=== PATIENT | male | born 1975 | race Caucasian/White ===

== ENCOUNTER 2020-09-30 16:42 | Emergency (ER) | payer SELFPAY ==
[2020-09-30 17:02] VITALS: BP 132/91; PULSE 92; RESP 14; TEMP 36.3; O2SAT 95; BMI 17.4
--- NOTE | 2020-09-30 17:19 | W.ED.DENTAL ---
HPI - Dental/Oral General: Chief complaint: Dental/Oral Stated complaint: L SIDE TOOTH PAIN/POSS INFECTION Time Seen by Provider: 09/30/20 17:19 Source: patient Mode of arrival: ambulatory Limitations: no limitations History of Present Illness: HPI Narrative: Patient is a 49-year-old male who presents to ED today with complaint of dental pain and facial swelling. Patient tells me approximately 6 days ago one of his lower incisors broke. He states it was not really bothering him until yesterday when it began hurting. He states he woke up today and noticed facial swelling. He is not having any difficulty eating or drinking. No fevers. MD Complaint: tooth pain Onset (ago): day(s) Duration: constant Severity: moderate Relieving factors: nothing Exacerbating factors: nothing Context: history of dental caries and trauma (mechanism) Associated symptoms: Reports no associated symptoms; Denies fever(s) or odynophagia Review of Systems Const: Denies: fever(s), chills, body aches or fatigue Eyes: Denies: change in vision or blurry vision ENMT: Reports: dental pain; Denies: throat pain, enlarged tonsils, odynophagia, bleeding gums or nasal congestion Card: Denies: chest pain Resp: Denies: dyspnea GI: Denies: nausea or vomiting Musc: Denies: neck pain Skin/Breast: Denies: rash Neuro: Denies: headache(s) Physical Exam Const: COMMON NORMALS: no acute distress, average body habitus, patient oriented x3, no limitations, healthy appearing, alert and well nourished HENMT: COMMON NORMALS: normocephalic, atraumatic, moist oral mucous membranes and oropharynx normal HEAD & SCALP: normal to inspection, normocephalic and atraumatic FACE & SINUS: sinuses nontender and other (mild swelling noted to chin) TEETH & GINGIVA: Yes poor dentition TEETH & GINGIVA IMAGES: 1. broken tooth; erosion noted into gingiva; no obvious palpable abscess; overall very poor dentition; diffuse gingivitis THROAT: posterior oropharynx normal and other (floor of mouth is soft and non-elevated ) Neck/C-Spine: COMMON NORMALS: full ROM and no lymphadenopathy Lymph: LYMPHATIC: no lymphadenopathy noted Neuro: COMMON NORMALS: patient oriented x3 SENSORIUM/ORIENTATION: Yes alert Skin: COMMON NORMALS: no rashes or lesions noted GENERAL SKIN EXAM: no rashes or lesions noted Course Vital Signs: Vital signs: Vital Signs Temperature 97.4 F L 09/30/20 17:02 Pulse Rate 92 09/30/20 17:02 Respiratory Rate 14 09/30/20 17:02 Blood Pressure 132/91 09/30/20 17:02 Pulse Oximetry 95 09/30/20 17:02 MDM - Dental/Oral MDM Narrative: Medical decision making narrative: Patient was provided with dental resources. There is no drainable abscess at this time. Patient will be placed on abx and recommends he follows up with a dentist as soon as possible. Return to ED precautions discussed. Discharge Plan Discharge Patient Disposition: Home Clinical Impression: Dental caries, Dental abscess Condition: Stable Prescriptions: New penicillin V potassium 500 mg tablet 500 mg PO Q8H 7 Days Qty: 21 RF: 0 Discharge Orders: Discharge ED (Routine); Ordered 09/30/20 Ordered By: Genet Parson Patient Instructions: Dental Abscess (ED), Dental Caries (ED) Coding Level of Care Code ED Marketing Project Manager for [employer] Fwd Exam Problem Focused
== END 2020-09-30 17:32 | disposition home or self-care (01) ==
PROVIDERS: Emergency Provider Physician Assistant
DX: K02.9 Dental caries, unspecified (principal); K04.7 Periapical abscess without sinus
CPT/HCPCS: 12345; 99281

== ENCOUNTER 2020-10-04 10:03 | Emergency (ER) | payer SELFPAY ==
[2020-10-04 10:09] VITALS: BP 134/79; PULSE 76; RESP 16; TEMP 36.5; O2SAT 99; BMI 17.4
--- NOTE | 2020-10-04 10:22 | XR_ITS ---
WS: [id number] Mandible series, 4 views, 10/04/2020 Clinical Data: fall, pain, left lower front Comparison: None. Findings: The mandible is intact with no fractures. The condyles are normal. The angle and body of the mandible are not remarkable. The maxilla and visualized sinuses are normal. The patient has poor dentition. T here is a shunt catheter overlying the left neck. There are metal fragments lateral to the left later al orbit. XR/XR mandible min 4V [id number] Impression: Negative mandible series.
--- NOTE | 2020-10-04 10:23 | W.ED.GENADLT ---
HPI - General Adult General: Chief complaint: Dental/Oral Stated complaint: jaw pain, swelling Time Seen by Provider: 10/04/20 10:16 History of Present Illness: HPI narrative: Patient complains about swelling to his left mandible since he had a fall after seizure other day. Said his tooth broke off and has been sore there also was treated with antibiotics and is on those presently said he feels he might of broke his jaw. MD complaint: Jaw pain Onset (ago): day(s) Location: mouth Radiation: non-radiation Severity: moderate Severity scale (1-10): 4 Quality: aching Pain Consistency: constant Relieving factors: none Exacerbating factors: movement Associated symptoms: Reports palpitations (History of palpitations none presently) and other (Swelling) Treatments prior to arrival: NSAID Review of Systems Narrative: Patient believes he might have fractured his jaw when he fell the other day after having a seizure. Said his swelling to improve with antibiotics it hurts for him to talk and he has swelling in the lower part of his jaw underneath the tooth that he said broke off after he fell. ENMT: Reports: other (Broken tooth and jaw pain) Card: Reports: palpitations (History of palpitations none presently) Psych: Denies: anxiety or depression Physical Exam Const: COMMON NORMALS: no acute distress and patient oriented x3 HENMT: TEETH & GINGIVA: Yes other (Between his #23 and his #21 tooth he said it broke off there hard to see if) OTHER: In continuation of note is hard to determine if there was actually tooth there but there is deterioration decay of that area and also swelling to the gum. Has multiple dental caries. Does have some swelling to the front part chin area and does have a lymphadenopathy underneath that area. Pain with palpation. Neck/C-Spine: COMMON NORMALS: full ROM CERVICAL SPINE: Yes cervical ROM normal Neuro: COMMON NORMALS: patient oriented x3, moves all extremities, no focal motor deficits and no sensory deficits noted Course Vital Signs: Vital signs: Vital Signs Temperature 97.7 F 10/04/20 10:09 Pulse Rate 76 10/04/20 10:09 Respiratory Rate 16 10/04/20 10:09 Blood Pressure 134/79 10/04/20 10:09 Pulse Oximetry 99 10/04/20 10:09 Discharge Plan Discharge Prescriptions: No Action penicillin V potassium 500 mg tablet 500 mg PO Q8H 7 Days Qty: 21 RF: 0 Coding Level of Care Code ED Nutrition Services Aide for Fei Ku
[2020-10-04] MEDS: clindamycin 150 mg Capsule 300 MG PO (10:57)
[2020-10-04 11:01] VITALS: RESP 18
== END 2020-10-04 11:02 | disposition home or self-care (01) ==
PROVIDERS: Emergency Provider Nurse Practitioner Family
DX: R68.84 Jaw pain (principal)
CPT/HCPCS: 70110; 99283

== ENCOUNTER 2020-10-04 14:24 | Emergency (ER) | payer SELFPAY ==
[2020-10-04 14:40] VITALS: BP 122/84; PULSE 113; RESP 16; TEMP 36.9; O2SAT 96; BMI 17.4
--- NOTE | 2020-10-04 15:24 | W.ED.SKABFB ---
HPI - Skin/Abscess/Foreign Bdy General: Chief complaint: Skin/Abscess/Foreign Body Stated complaint: ABSCESS ON FACE Time Seen by Provider: 10/04/20 15:14 History of Present Illness: HPI narrative: Area swelling underneath chin is starting to drain pus this afternoon. complaint: abscess/boil Onset (ago): hour(s) Location: face Severity: mild Severity scale (1-10): 1 Quality: aching Associated symptoms: Reports no associated symptoms; Deny chills or fever(s) Review of Systems Const: Denies: fever(s) or chills Skin/Breast: Reports: skin tenderness and skin swelling (Area under chin draining some pus now) Psych: Denies: anxiety Physical Exam Const: COMMON NORMALS: no acute distress Psych: COMMON NORMALS: mental status grossly normal Skin: OTHER: Patient swelling in her chin is draining some yellowish thick drainage now patient able to squeeze and get some out. Did not appear to be enough to open up and and make incision at this time. No other swelling or problems noted. Course Vital Signs: Vital signs: Vital Signs Temperature 98.4 F 10/04/20 14:40 Pulse Rate 113 H 10/04/20 14:40 Respiratory Rate 16 10/04/20 14:40 Blood Pressure 122/84 10/04/20 14:40 Pulse Oximetry 96 10/04/20 14:40 Discharge Plan Discharge Patient Disposition: Home Clinical Impression: Abscess of skin or subcutaneous tissue Qualifiers: Site of cutaneous abscess: head Qualified Code(s): L02.811 - Cutaneous abscess of head [any part, except face] Condition: Stable Prescriptions: No Action penicillin V potassium 500 mg tablet 500 mg PO Q8H 7 Days Qty: 21 RF: 0 clindamycin HCl 300 mg capsule 300 mg PO Q8H 7 Days Qty: 21 RF: 0 Celebrex 100 mg capsule 100 mg PO BID Qty: 20 RF: 0 Discharge Orders: Discharge ED (Routine); Ordered 10/04/20 Ordered By: Paul Hsieh Discharge Diet: Usual diet Discharge Activity: Resume usual activity Patient Instructions: Abscess (ED) Activity Restrictions/Additional Instructions: Continue on present antibiotics. Apply moist heat every hour or 2 to help. Continue to drain. If increased swelling pain or change for the worse happens please return here or the urgent care. Coding Level of Care Code ED Automatic Drilling Machine Operator for Fei Ku Exam Expanded Problem Focused
--- NOTE | 2020-10-04 16:36 | PC.NURSE ---
Read and agree with assessment
== END 2020-10-04 16:48 | disposition home or self-care (01) ==
PROVIDERS: Emergency Provider Nurse Practitioner Family
DX: L02.811 Cutaneous abscess of head [any part, except face] (principal)
CPT/HCPCS: 99281

== ENCOUNTER 2020-10-25 18:24 | Emergency (ER) | payer SELFPAY ==
[2020-10-25] VITALS (7 sets, daily range): BP systolic 106–131; BP diastolic 60–83; PULSE 64–91; RESP 9–19; TEMP 36.6; O2SAT 97–100; BMI 17.4
--- NOTE | 2020-10-25 18:32 | XRR_ITS ---
PROCEDURE INFORMATION: Exam: XR Chest Exam date and time: 10/25/2020 6:40 PM Age: 45 years old Clinical indication: Chest pain; Additional info: Cp TECHNIQUE: Imaging protocol: XR of the chest Views: 1 view. Total images: 1 COMPARISON: No relevant prior studies available. FINDINGS: Tubes, catheters and devices: Left internal jugular central venous catheter tip atrial caval junction. Lungs: Hyperinflation and query a history of reactive airway disease/COPD/chronic bronchitis/asthma. No visible active interstitial or alveolar airspace disease. Costophrenic angles are not visualized. Pleural spaces: No visible pneumothorax. No grossly visible pleural effusion. Heart/Mediastinum: Unremarkable. No cardiomegaly. Bones/joints: Mild scoliotic curvature. Other findings: Microcardia. XR/XR chest 1V portable [id number] IMPRESSION: Hyperinflation.
--- NOTE | 2020-10-25 18:32 | ECG_ITS ---
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
--- NOTE | 2020-10-25 18:35 | CTR_ITS ---
PROCEDURE INFORMATION: Exam: CT Angiography Chest With Contrast Exam date and time: 10/25/2020 6:41 PM Age: 45 years old Clinical indication: Abdominal pain; Generalized; Patient HX: Chest pain and SOB x 1 day; Additional info: Cp HX of aortic aneurysm TECHNIQUE: Imaging protocol: Computed tomographic angiography of the chest with contrast. 3D rendering (Not supervised by radiologist): MIP and/or 3D reconstructed images were created and reviewed. COMPARISON: No relevant prior studies available. FINDINGS: Pulmonary arteries: Normal. No pulmonary emboli. Aorta: The aorta is normal. There is no thoracic aortic aneurysm or dissection. Lungs: Lungs are clear. Pleural spaces: Unremarkable. No pneumothorax. No pleural effusion. Heart: Unremarkable. No cardiomegaly. No pericardial effusion. Lymph nodes: There is no evidence of lymphadenopathy. Bones/joints: There is mild scoliosis of the thoracic spine concave to the right. Soft tissues: Unremarkable. IMPRESSION: No acute findings in the chest. PROCEDURE INFORMATION: Exam: CT Angiography Abdomen and Pelvis With Contrast Exam date and time: 10/25/2020 6:41 PM Age: 45 years old Clinical indication: Abdominal pain; Generalized; Patient HX: Chest pain and SOB x 1 day; Additional info: Cp HX of aortic aneurysm TECHNIQUE: Imaging protocol: Computed tomographic angiography of the abdomen and pelvis with contrast material. 3D rendering (Not supervised by radiologist): MIP and/or 3D reconstructed images were created by the technologist. Radiation optimization: All CT scans at this facility use at least one of these dose optimization techniques: automated exposure control; mA and/or kV adjustment per patient size (includes targeted exams where dose is matched to clinical indication); or iterative reconstruction. Contrast material: OMNI 350; Contrast volume: 95 ml; Contrast route: INTRAVENOUS (IV); COMPARISON: No relevant prior studies available. RADIATION DOSE METRICS: Total DLP (mGy-cm): 1117.56 FINDINGS: Aorta: There is some minimal atherosclerotic calcification in the abdominal aorta without evidence of aneurysm or dissection. Celiac trunk and mesenteric arteries: There is narrowing of the origin of the celiac artery with some poststenotic dilatation. This may be due to compression by the median arcuate ligament . Please correlate for any signs or symptoms of celiac artery compression syndrome. Renal arteries: There are 2 renal arteries on each side without stenosis. Right iliac arteries: No occlusion or significant stenosis. Left iliac arteries: No occlusion or significant stenosis. Liver: Allowing for timing of contrast, liver is within normal limits. Gallbladder and bile ducts: There has been a cholecystectomy. Common bile duct is dilated to 11 mm but this is not unusual post cholecystectomy. Pancreas: Unremarkable. No mass. No ductal dilation. Spleen: The spleen is normal. Adrenal glands: The adrenal glands are normal. Kidneys and ureters: The kidneys are normal. There is no evidence of hydronephrosis. There is no evidence of renal or ureteral calcifications. Stomach and bowel: Unremarkable. No obstruction. No mucosal thickening. Appendix: No evidence of appendicitis. Intraperitoneal space: Unremarkable. No free air. No significant fluid collection. Lymph nodes: There is no evidence of lymphadenopathy. Urinary bladder: There is moderate thickening of the urinary bladder wall. Please correlate for any signs or symptoms of urinary tract infection. Reproductive: Unremarkable as visualized. Bones/joints: There is mild degenerative change in the lumbar spine with bulging L4-L5 disc. L5 is partly sacralized. Soft tissues: Unremarkable. Other findings: There is no evidence of colitis/diverticulitis. CT/CT angio chest abdomen pelvis IMPRESSION: 1. 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 2. No evidence of aortic aneurysm or dissection 3. Question of urinary bladder wall thickening. Correlate with clinical findings. Radiation Dose CTDIVOL = (mGy): DLP = 1117.56 (mGy-cm)
--- NOTE | 2020-10-25 18:36 | ED_ITS ---
HPI - Chest Pain General: Chief Complaint: Chest Pain Stated Complaint: CHEST PAIN Time Seen by Provider: 10/25/20 18:28 History of Present Illness: HPI narrative: 45-year-old male with a history of an aneurysm in my chest and abdomen . He presents with chest discomfort. He states that it started after he woke this morning. No exertion. He says it is a searing pain between his chest and his belly. Said he was sweaty and nauseated at home he tells me he has had 1 pneumothorax, 2 hemothoraces in the past, related to trauma. He also tells me that he has mitral valve prolapse and tricuspid regurgitation. No history of coronary disease. MD complaint: chest pain Pertinent past history: known aortic aneurysm Onset (ago): hour(s) Prior episodes: Yes Onset: during rest Pain location: substernal Associated symptoms: Reports diaphoresis and nausea; Deny abdominal pain, dyspnea, fever(s), palpitations, syncope or vomiting Review of Systems Const: Reports: diaphoresis; Denies: fever(s), chills or body aches Eyes: Reports: other (No history of lens dislocation); Denies: change in vision or blurry vision Card: Reports: chest pain; Denies: palpitations, irregular heart rhythm or syncope Resp: Denies: dyspnea, productive cough, non-productive cough or wheezing GI: Reports: nausea; Denies: abdominal pain, vomiting or hematemesis Musc: Denies: back pain or extremity swelling Neuro: Denies: headache(s), numbness in extremities or weakness in extremities Physical Exam Const: GENERAL APPEARANCE: well developed and other (Thin, marfanoid individual) ORIENTATION/CONSCIOUSNESS: Yes oriented to person, Yes oriented to place and Yes oriented to time HENMT: COMMON NORMALS: normocephalic, external ears normal and Normal external nose present HEAD & SCALP: normocephalic FACE & SINUS: normal facial exam NOSE: Normal external nose present and No nasal discharge present EXTERNAL EAR: Yes external ears normal Eye: COMMON NORMALS: Equal, round and reactive pupils present, EOMs intact bilaterally and conjunctivae normal EYELID: eyelids normal CONJUNCTIVA: Yes conjunctivae normal PUPIL: Yes Equal, round and reactive pupils present Neck/C-Spine: GENERAL: No tracheal deviation Chest: COMMONS NORMALS: normal inspection of the chest CHEST: No tenderness Resp: COMMON NORMALS: clear to auscultation bilaterally EFFORT & INSPECTION: No tachypneic, No respiratory distress, No retractions, No uses accessory muscles and No tracheal deviation AUSCULTATION: clear to auscultation bilaterally, no rhonchi, no wheezes and lung sounds not diminished Cardio: COMMON NORMALS: regular rate and regular rhythm RATE: regular rate RHYTHM: regular rhythm HEART SOUNDS: no murmurs PERIPHERAL PULSES: radial pulses present GI: INSPECTION: No abdominal distension AUSCULTATION: No Hyperactive bowel sounds present and No Hypoactive bowel sounds present PALPATION: No Guarding due to palpation present (GI) and No Rigid due to palpation PERCUSSION: no dullness to percussion and no tympanic to percussion Neuro: SENSORIUM/ORIENTATION: Yes oriented to person, Yes oriented to place and Yes oriented to time Psych: COMMON NORMALS: mental status grossly normal Skin: COMMON NORMALS: no rashes or lesions noted GENERAL SKIN EXAM: no rashes or lesions noted Course Vital Signs: Vital signs: Vital Signs Temperature 97.9 F 10/25/20 18:26 Pulse Rate 87 10/25/20 21:59 Respiratory Rate 14 10/25/20 21:59 Blood Pressure 131/83 10/25/20 21:59 Pulse Oximetry 100 10/25/20 21:59 MDM - Chest Pain MDM Narrative: Medical decision making narrative: 45-year-old gentleman with epigastric pain. 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 No other aneurysms, leakages or dissections are noted other structures are normal. Laboratory is normal. His pain improved with pain medication, and antiemetics here. He will be referred as an outpatient to vascular surgery for any recommendations. Lab Data: Labs: Lab Results 10/25/20 10/25/20 10/25/20 Range/Units 18:50 18:50 18:50 WBC 7.4 (4.0-10.0) 10^3/ uL RBC 4.22 (4.1-5.3) 10^6/u L Hgb 13.7 (11.7-16.6) g/dL Hct 41.3 L (42.0-52.0) % MCV 97.9 H (80-94) fL MCH 32.5 (28.0-34.0) pg MCHC 33.2 (30.0-36.0) g/dL RDW 12.0 L (12.1-15.1) % Plt Count 200 (130-400) 10^3/c mm MPV 9.8 (7.4-10.4) fL Neut % (Auto) 69.2 % Lymph % (Auto) 20.2 % Ritchie % (Auto) 6.5 % Eos % (Auto) 3.1 % Baso % (Auto) 0.7 % Neut # (Auto) 5.11 (1.8-7.7) 10^3/u L Lymph # (Auto) 1.5 (0.8-4.8) 10^3/u L Ritchie # (Auto) 0.5 (0.2-0.9) 10^3/u L Eos # (Auto) 0.2 (0.0-0.8) 10^3/u L Baso # (Auto) 0.1 (0.0-0.1) 10^3/u L Nucleated RBC % (a uto) 0 % Nucleated RBCs # 0.0 /100WBC Sodium 139 (136-145) mmol/L Potassium 4.0 (3.5-5.1) mmol/L Chloride 102 (98-107) mmol/L Carbon Dioxide 28 (22-29) mmol/L Anion Gap 13.0 (5-19) BUN 16 (6-20) mg/dL Creatinine 0.9 (0.7-1.2) mg/dL GFR Calculation 91.7 (90-130) mL/min Glucose 109 (65-115) mg/dL Calculated Osmolal ity 290 (285-295) mOsm/k g Calcium 9.0 (8.5-10.5) mg/dL Total Bilirubin 0.5 (0.15-1.2) mg/dL AST 25 (0-40) U/L ALT 15 (0-41) U/L Alkaline Phosphata se 77 (40-130) IU/L Creatine Kinase 58 (39-308) U/L Troponin T Baselin e 6 (0-15) ng/L Troponin T 120 Min santana (0-15) ng/L Delta Troponin T (0-10) ABS# NT-Pro-B Natriuret Pep 31 (0-125) pg/mL Total Protein 7.5 (6.6-8.7) g/dL Albumin 4.5 (3.5-5.2) g/dL Globulin 3.0 (1.3-4.6) g/dL 10/25/20 Range/Units 21:34 WBC (4.0-10.0) 10^3/ uL RBC (4.1-5.3) 10^6/u L Hgb (11.7-16.6) g/dL Hct (42.0-52.0) % MCV (80-94) fL MCH (28.0-34.0) pg MCHC (30.0-36.0) g/dL RDW (12.1-15.1) % Plt Count (130-400) 10^3/c mm MPV (7.4-10.4) fL Neut % (Auto) % Lymph % (Auto) % Ritchie % (Auto) % Eos % (Auto) % Baso % (Auto) % Neut # (Auto) (1.8-7.7) 10^3/u L Lymph # (Auto) (0.8-4.8) 10^3/u L Ritchie # (Auto) (0.2-0.9) 10^3/u L Eos # (Auto) (0.0-0.8) 10^3/u L Baso # (Auto) (0.0-0.1) 10^3/u L Nucleated RBC % (a uto) % Nucleated RBCs # /100WBC Sodium (136-145) mmol/L Potassium (3.5-5.1) mmol/L Chloride (98-107) mmol/L Carbon Dioxide (22-29) mmol/L Anion Gap (5-19) BUN (6-20) mg/dL Creatinine (0.7-1.2) mg/dL GFR Calculation (90-130) mL/min Glucose (65-115) mg/dL Calculated Osmolal ity (285-295) mOsm/k g Calcium (8.5-10.5) mg/dL Total Bilirubin (0.15-1.2) mg/dL AST (0-40) U/L ALT (0-41) U/L Alkaline Phosphata se (40-130) IU/L Creatine Kinase (39-308) U/L Troponin T Baselin e (0-15) ng/L Troponin T 120 Min santana 6.00 (0-15) ng/L Delta Troponin T 0 (0-10) ABS# NT-Pro-B Natriuret Pep (0-125) pg/mL Total Protein (6.6-8.7) g/dL Albumin (3.5-5.2) g/dL Globulin (1.3-4.6) g/dL Discharge Plan Discharge Patient Disposition: Home Clinical Impression: Celiac artery compression syndrome Condition: Stable Prescriptions: No Action clindamycin HCl 300 mg capsule 300 mg PO Q8H RF: 0 albuterol sulfate 90 mcg/actuation Hfa Aerosol Inhaler 2 puff INHALATION 6XD PRN (Reason: Shortness Of Breath) RF: 0 metoprolol tartrate 25 mg Tablet 25 mg PO BID RF: 0 Depakene See Rx Instructions .ROUTE .COMPLEX RF: 0 Discharge Orders: Discharge ED (Routine); Ordered 10/25/20 Ordered By: Ethan Singh Patient Instructions: Abdominal Pain (ED) Activity Restrictions/Additional Instructions: Return for return of or worsening pain, vomiting liquids or medications, fever, shortness of breath, other concerning symptoms. Coding Level of Care Code ED Gis Specialist for [place] Fwd Exam Comprehensive
[2020-10-25 18:57] LABS: Basophils # 0.1 10^3/uL (0.0-0.1); Basophils % 0.7 %; Eosinophils # 0.2 10^3/uL (0.0-0.8); Eosinophils % 3.1 %; Hematocrit 41.3 % (42.0-52.0); Hemoglobin 13.7 g/dL (11.7-16.6); Lymphocytes # 1.5 10^3/uL (0.8-4.8); Lymphocytes % 20.2 %; Mean Corpuscular HGB Conc 33.2 g/dL (30.0-36.0); Mean Corpuscular Hemoglobin 32.5 pg (28.0-34.0); Mean Corpuscular Volume 97.9 fL (80-94); Mean Platelet Volume 9.8 fL (7.4-10.4); Monocytes # 0.5 10^3/uL (0.2-0.9); Monocytes % 6.5 %; Neutrophils # 5.11 10^3/uL (1.8-7.7); Neutrophils % 69.2 %; Nucleated Red Blood Cells % 0 %; Platelet Count 200 10^3/cmm (130-400); Red Blood Count 4.22 10^6/uL (4.1-5.3); White Blood Count 7.4 10^3/uL (4.0-10.0)
[2020-10-25] MEDS: iohexol 350 mg/mL 100 mL Btl IV (19:12)
[2020-10-25 19:14] LABS: Troponin(5th) Baseline 6 ng/L (0-15)
[2020-10-25] MEDS: morphine 4 mg/mL SDV 1 mL IVP (19:15)
[2020-10-25] MEDS: ondansetron 2 mg/ML SDV 2 mL 4 MG IVP ×2 (19:15→20:37)
[2020-10-25 19:22] LABS: Alanine Aminotransferase 15 U/L (0-41); Albumin Level 4.5 g/dL (3.5-5.2); Alkaline Phosphatase 77 IU/L (40-130); Aspartate Amino Transferase 25 U/L (0-40); Blood Urea Nitrogen 16 mg/dL (6-20); Carbon Dioxide 28 mmol/L (22-29); Chloride 102 mmol/L (98-107); Creatine Phosphokinase 58 U/L (39-308); Glomerular Filtration Rate 91.7 mL/min (90-130); Glucose 109 mg/dL (65-115); NT Pro B Type Natriuretic Pept 31 pg/mL (0-125); Osmolality Calculated 290 mOsm/kg (285-295); Sodium 139 mmol/L (136-145); Total Bilirubin 0.5 mg/dL (0.15-1.2); Total Protein 7.5 g/dL (6.6-8.7)
--- NOTE | 2020-10-25 20:32 | ECG_ITS ---
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
--- NOTE | 2020-10-25 20:34 | PC.NURSE ---
EKG done at 2030 and shown to ER doctor
[2020-10-25] MEDS: NIFEdipine 10 mg Capsule PO (21:10)
[2020-10-25 22:03] LABS: Troponin 5 2HR Delta 0 ABS# (0-10)
== END 2020-10-25 22:06 | disposition home or self-care (01) ==
PROVIDERS: Emergency Provider Emergency Medicine
DX: I77.4 Celiac artery compression syndrome (principal)
CPT/HCPCS: 36415; 71045; 71275; 74174; 80053; 82550; 83880; 84484; 85025; 93005; 96374; 96375; 96376; 99284; J2270; J2405; Q9967

== ENCOUNTER 2020-10-26 11:12 | Emergency (ER) | payer SELFPAY ==
[2020-10-26 11:17] VITALS: BP 105/63; PULSE 66; RESP 15; TEMP 36.4; O2SAT 97; BMI 17.4
--- NOTE | 2020-10-26 11:23 | XRR_ITS ---
PROCEDURE INFORMATION: Exam: XR Chest Exam date and time: 10/26/2020 11:26 AM Age: 45 years old Clinical indication: Pain; Shortness of breath; Other: Chest at diaphragm; Additional info: Chest pain, SOB TECHNIQUE: Imaging protocol: XR of the chest Views: 1 view. COMPARISON: CR XR chest 1V portable [id number] 10/25/2020 6:37 PM FINDINGS: Tubes, catheters and devices: A catheter is again seen projecting over left neck, and terminating at the SVC/RA junction. Lungs: Hyperinflated lungs, which can be seen with COPD. No focal consolidation identified. Pleural spaces: Unremarkable. No pleural effusion. No pneumothorax. Heart/Mediastinum: Unremarkable. No cardiomegaly. Bones/joints: Mild levocurvature of the thoracic spine is present. XR/XR chest 1V portable [id number] IMPRESSION: No evidence of active cardiopulmonary disease.
--- NOTE | 2020-10-26 11:23 | ECG_ITS ---
[facility] Test Date: 2020-10-26 Pat Name: Lambert Nunez Department: Room: Gender: Male Surgery Manager: : 1975 Requested By: Brian Thayer Order Number: [id number] Reading MD: MYA GEORGE Measurements Intervals [place] Rate: 66 P: 75 ID: [id number] QRS: 85 QRSD: 82 T: 81 QT: 398 QTc: 418 Interpretive Statements SINUS RHYTHM MODERATE ST DEPRESSION [0.05+ mV ST DEPRESSION] Compared to ECG 10/25/2020 20:29:57 ST (T wave) deviation now present Electronically Signed On 10-26-2020 18:44:57 DIRECTOR OF SAFETY by MYA GEORGE [id number]
[2020-10-26 11:30] VITALS: O2SAT 100
[2020-10-26 11:46] LABS: Basophils # 0.1 10^3/uL (0.0-0.1); Basophils % 0.6 %; Eosinophils # 0.3 10^3/uL (0.0-0.8); Eosinophils % 3.8 %; Hematocrit 40.3 % (42.0-52.0); Hemoglobin 13.3 g/dL (11.7-16.6); Lymphocytes # 3.5 10^3/uL (0.8-4.8); Lymphocytes % 44.3 %; Mean Corpuscular Hemoglobin 32.8 pg (28.0-34.0); Mean Corpuscular Volume 99.3 fL (80-94); Mean Platelet Volume 10.5 fL (7.4-10.4); Monocytes # 0.7 10^3/uL (0.2-0.9); Monocytes % 8.7 %; Neutrophils # 3.38 10^3/uL (1.8-7.7); Neutrophils % 42.5 %; Nucleated Red Blood Cells % 0 %; Platelet Count 205 10^3/cmm (130-400); Red Blood Count 4.06 10^6/uL (4.1-5.3); Red Cell Distribution Width 12.3 % (12.1-15.1)
[2020-10-26] MEDS: ondansetron 2 mg/ML SDV 2 mL 4 MG IVP (11:57)
[2020-10-26] MEDS: ketorolac 30 mg/mL INJ IVP (11:57)
[2020-10-26 12:02] LABS: Alanine Aminotransferase 17 U/L (0-41); Albumin Level 4.5 g/dL (3.5-5.2); Alkaline Phosphatase 77 IU/L (40-130); Blood Urea Nitrogen 17 mg/dL (6-20); Calcium 9.6 mg/dL (8.5-10.5); Carbon Dioxide 28 mmol/L (22-29); Chloride 102 mmol/L (98-107); Globulin 2.8 g/dL (1.3-4.6); Glomerular Filtration Rate 91.7 mL/min (90-130); Glucose 111 mg/dL (65-115); Osmolality Calculated 294 mOsm/kg (285-295); Sodium 141 mmol/L (136-145); Total Bilirubin 0.8 mg/dL (0.15-1.2); Total Protein 7.3 g/dL (6.6-8.7)
[2020-10-26 12:04] LABS: Troponin(5th) Baseline 6 ng/L (0-15)
--- NOTE | 2020-10-26 12:17 | ED_ITS ---
HPI - Chest Pain General: Chief Complaint: Chest Pain Stated Complaint: CHEST PAIN Time Seen by Provider: 10/26/20 11:14 History of Present Illness: HPI narrative: 45-year-old male presents emergency room complaining of abdominal generalized pain and discomfort. Pain radiates into his chest. He was seen for the same symptoms yesterday had a CTA abdominal aorta runoff. And showed some abnormality of the celiac artery but no occlusion. He returns today with similar symptoms has been an ongoing thing for an extended period of time months even years. He has not had full vascular evaluation to this point. He denies any vomiting or diarrhea. His epigastric radiates up into his chest. 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) Onset (ago): hour(s) Timing of current episode: episodic Onset: during rest Pain location: left chest and epigastric Severity: moderate Quality: tightness and heaviness Relieving factors: nothing Exacerbating factors: nothing Associated symptoms: Reports abdominal pain and nausea; Deny diaphoresis, dyspnea, fever(s), leg edema, palpitations, sense of impending doom, syncope or vomiting Treatment prior to arrival: none Review of Systems Const: Denies: fever(s) or diaphoresis ENMT: Denies: throat pain, ear or mastoid pain, nasal discharge or nasal congestion Card: Denies: palpitations or syncope Resp: Denies: dyspnea GI: Reports: abdominal pain and nausea; Denies: vomiting : Denies: flank pain, dysuria, urinary frequency or urinary urgency Skin/Breast: Denies: rash or pruritus PFS ED PFSH: Social History Smoking and tobacco status: never smoked Alcohol intake: never Substance/Drug Use: current Substance/Drug use frequency: few times a month Substance/Drug use type: Marijuana Physical Exam Const: COMMON NORMALS: no acute distress GENERAL APPEARANCE: cooperative and comfortable ORIENTATION/CONSCIOUSNESS: Yes awake, Yes oriented to person, Yes oriented to place and Yes oriented to time HENMT: COMMON NORMALS: normocephalic, atraumatic and hearing grossly normal bilaterally HEAD & SCALP: normocephalic and atraumatic Neck/C-Spine: COMMON NORMALS: no JVD Resp: COMMON NORMALS: normal respiratory effort, No retractions, No use of accessory muscles and clear to auscultation bilaterally AUSCULTATION: clear to auscultation bilaterally Cardio: COMMON NORMALS: no JVD, regular rate, regular rhythm and No murmurs present (Cardio) RATE: regular rate RHYTHM: regular rhythm GI: COMMON NORMALS: Soft to palpation and No hepatosplenomegaly present AUSCULTATION: Yes normoactive bowel sounds PALPATION: Yes Soft to palpation, No Tenderness to palpation present (GI), No Guarding due to palpation present (GI) and Yes No hepatosplenomegaly present Extremity: COMMON NORMALS: normal to inspection, capillary refill normal, no clubbing, cyanosis or edema, no calf tenderness and no pedal edema Neuro: SENSORIUM/ORIENTATION: Yes oriented to person, Yes oriented to place and Yes oriented to time Skin: COMMON NORMALS: no rashes or lesions noted GENERAL SKIN EXAM: no rashes or lesions noted Course Vital Signs: Vital signs: Vital Signs Temperature 97.6 F 10/26/20 11:17 Pulse Rate 66 10/26/20 11:17 Respiratory Rate 15 10/26/20 11:17 Blood Pressure 105/63 10/26/20 11:17 Pulse Oximetry 100 10/26/20 11:30 MDM - Chest Pain MDM Narrative: Medical decision making narrative: Initial EKG there is some questionable ST elevation at 2 3 and aVF however when you look at his old EKGs is unchanged from previous. His first troponin is 6 he had a troponin rule out 18 hours ago that was normal. His second EKG showed slightly more what appears to be ST elevation in 2 3 and aVF I suspect it is more early repole discussed with Dr. Briseno we reviewed the old and new EKGs and he agrees as well it is early repole and of the troponin is now elevated he does not feel this represents anything significant and can be discharged home. Serial troponins were negative discussed with the patient we will discharge him home encouraged him to follow-up with vascular arm and have case management make arrangements for him hopefully he will keep the follow-up this time. Lab Data: Labs: Lab Results 10/26/20 10/26/20 10/26/20 Range/Units 11:04 11:04 11:04 WBC 8.0 (4.0-10.0) 10^3/ uL RBC 4.06 L (4.1-5.3) 10^6/u L Hgb 13.3 (11.7-16.6) g/dL Hct 40.3 L (42.0-52.0) % MCV 99.3 H (80-94) fL MCH 32.8 (28.0-34.0) pg MCHC 33.0 (30.0-36.0) g/dL RDW 12.3 (12.1-15.1) % Plt Count 205 (130-400) 10^3/c mm MPV 10.5 H (7.4-10.4) fL Neut % (Auto) 42.5 % Lymph % (Auto) 44.3 % [place] % (Auto) 8.7 % Eos % (Auto) 3.8 % Baso % (Auto) 0.6 % Neut # (Auto) 3.38 (1.8-7.7) 10^3/u L Lymph # (Auto) 3.5 (0.8-4.8) 10^3/u L [place] # (Auto) 0.7 (0.2-0.9) 10^3/u L Eos # (Auto) 0.3 (0.0-0.8) 10^3/u L Baso # (Auto) 0.1 (0.0-0.1) 10^3/u L Nucleated RBC % (a uto) 0 % Nucleated RBCs # 0.0 /100WBC Sodium 141 (136-145) mmol/L Potassium 4.2 (3.5-5.1) mmol/L Chloride 102 (98-107) mmol/L Carbon Dioxide 28 (22-29) mmol/L Anion Gap 15.2 (5-19) BUN 17 (6-20) mg/dL Creatinine 0.9 (0.7-1.2) mg/dL GFR Calculation 91.7 (90-130) mL/min Glucose 111 (65-115) mg/dL Calculated Osmolal ity 294 (285-295) mOsm/k g Lactic Acid (0.5-2.2) mmol/L Calcium 9.6 (8.5-10.5) mg/dL Total Bilirubin 0.8 (0.15-1.2) mg/dL AST 27 (0-40) U/L ALT 17 (0-41) U/L Alkaline Phosphata se 77 (40-130) IU/L Troponin T Baselin e 6 (0-15) ng/L Troponin T 120 Min pala (0-15) ng/L Delta Troponin T (0-10) ABS# Total Protein 7.3 (6.6-8.7) g/dL Albumin 4.5 (3.5-5.2) g/dL Globulin 2.8 (1.3-4.6) g/dL 10/26/20 10/26/20 Range/Units 12:00 13:13 WBC (4.0-10.0) 10^3/ uL RBC (4.1-5.3) 10^6/u L Hgb (11.7-16.6) g/dL Hct (42.0-52.0) % MCV (80-94) fL MCH (28.0-34.0) pg MCHC (30.0-36.0) g/dL RDW (12.1-15.1) % Plt Count (130-400) 10^3/c mm MPV (7.4-10.4) fL Neut % (Auto) % Lymph % (Auto) % [place] % (Auto) % Eos % (Auto) % Baso % (Auto) % Neut # (Auto) (1.8-7.7) 10^3/u L Lymph # (Auto) (0.8-4.8) 10^3/u L [place] # (Auto) (0.2-0.9) 10^3/u L Eos # (Auto) (0.0-0.8) 10^3/u L Baso # (Auto) (0.0-0.1) 10^3/u L Nucleated RBC % (a uto) % Nucleated RBCs # /100WBC Sodium (136-145) mmol/L Potassium (3.5-5.1) mmol/L Chloride (98-107) mmol/L Carbon Dioxide (22-29) mmol/L Anion Gap (5-19) BUN (6-20) mg/dL Creatinine (0.7-1.2) mg/dL GFR Calculation (90-130) mL/min Glucose (65-115) mg/dL Calculated Osmolal ity (285-295) mOsm/k g Lactic Acid 1.1 (0.5-2.2) mmol/L Calcium (8.5-10.5) mg/dL Total Bilirubin (0.15-1.2) mg/dL AST (0-40) U/L ALT (0-41) U/L Alkaline Phosphata se (40-130) IU/L Troponin T Baselin e (0-15) ng/L Troponin T 120 Min pala 6.43 (0-15) ng/L Delta Troponin T 0.43 (0-10) ABS# Total Protein (6.6-8.7) g/dL Albumin (3.5-5.2) g/dL Globulin (1.3-4.6) g/dL Discharge Plan Discharge Patient Disposition: Home Clinical Impression: Celiac artery compression syndrome Condition: Stable Prescriptions: New hydrocodone-acetaminophen 5-325 mg tablet 1 tab PO Q6H PRN (Reason: pain) Qty: 10 RF: 0 Zofran 4 mg tablet 4 mg PO Q6H PRN (Reason: nausea and vomiting) Qty: 20 RF: 0 No Action clindamycin HCl 300 mg capsule 300 mg PO Q8H RF: 0 albuterol sulfate 90 mcg/actuation Hfa Aerosol Inhaler 2 puff INHALATION 6XD PRN (Reason: Shortness Of Breath) RF: 0 Depakote 500 mg PO BID RF: 0 Discharge Orders: Discharge ED (Routine); Ordered 10/26/20 Ordered By: Brian Meneses Discharge Diet: Usual diet Discharge Activity: Resume usual activity Patient Instructions: Opioid Safety Coding Level of Care Code 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
[2020-10-26 12:28] LABS: Lactic Sepsis W/Reflex 1.1 mmol/L (0.5-2.2)
[2020-10-26 12:46] LABS: Anion Gap 15.2 (5-19); Aspartate Amino Transferase 27 U/L (0-40); Potassium 4.2 mmol/L (3.5-5.1)
--- NOTE | 2020-10-26 13:12 | PC.PHAR ---
Addendum entered by Nola Garcia 10/26/20 13:16: pt states he is still taking clindamycin 300mg po [id number] med history shows last filled 10/11/20 7d/s pt states he still has this medication because he forgot to take it when he got it Original Note: pt states he takes care of his own medications-pt states he takes depakote 500mg bid but is unsure if it is er or dr-pt states he last filled in [place] about 3 months ago and cant remember the name of where he filled it at-pt states he use to take metoprolol tartrate 25mg bid but hasnt had it for at least 3 months
--- NOTE | 2020-10-26 13:23 | ECG_ITS ---
[facility] Test Date: 2020-10-26 Pat Name: Lambert Nunez Department: Room: Gender: Male [employer]er: : [id number] Requested By: Brian Thayer Order Number: [id number] Reading MD: MYA GEORGE Measurements Intervals [place] Rate: 66 P: 71 AK: 139 QRS: 81 QRSD: 70 T: 78 QT: 381 QTc: 401 Interpretive Statements SINUS RHYTHM MARKED ST ELEVATION, CONSIDER INFERIOR INJURY Early repolarization abnormality Compared to ECG 10/26/2020 11:23:31 No significant Electronically Signed On 10-26-2020 18:47:10 ADMINISTRATIVE SUPPORT ASSISTANT by MYA GEORGE [id number]
[2020-10-26 13:47] LABS: Troponin 5 2HR 6.43 ng/L (0-15); Troponin 5 2HR Delta 0.43 ABS# (0-10)
[2020-10-26 14:37] VITALS: BP 140/80; PULSE 64; RESP 22; O2SAT 99
--- NOTE | 2020-10-28 12:12 | DCPLANNER ---
planning and analysis manager had message to schedule a follow up appointment with heart care. planning and analysis manager called [facility], spoke with Emily, a follow up appointment was scheduled for Sunday November 01, 2020 at 11:[address] Hernadez at [facility]. planning and analysis manager called phone number [phone], unable to speak with patient at this time, a voicemail was left for patient to return clinical case manager phone call.
--- NOTE | 2020-11-07 14:09 | DCPLANNER ---
Patient had a follow up appointment scheduled for 11.01.[address] Hernadez at [facility] - patient did attend appointment.
== END 2020-10-26 14:01 | disposition home or self-care (01) ==
PROVIDERS: Emergency Provider Family Medicine
DX: I77.4 Celiac artery compression syndrome (principal)
CPT/HCPCS: 36415; 71045; 80053; 83605; 84484; 85025; 93005; 96374; 96375; 99284; J1885; J2405

== ENCOUNTER 2020-11-17 13:23 | Emergency (ER) | payer SELFPAY ==
--- NOTE | 2020-11-17 13:31 | W.ED.ABDPA2 ---
Documented by User: CLARI Garza 11/17/20 16:44 HPI - Abdominal Pain General: Chief Complaint: Abdominal Pain Stated Complaint: ABD PAIN Time Seen by Provider: 11/17/20 13:23 Source: patient and EMS Mode of arrival: EMS Limitations: no limitations History of Present Illness: HPI narrative: Patient is a 45-year-old male who presents to ED today with a complaint of upper abdominal pain. Patient states pain began just prior to arrival. He states he has had identical intermittent pains over the past 6 months. 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 Patient was seen at our facility earlier this month and had a CTA chest/abdomen/pelvis performed which showed: celiac artery narrowing possibly due to compression by the median arcuate ligament of the diaphragm. Patient followed up with Dr. Rendon approximately a week later. Dr. Hernadez was not convinced that patient had any true obstruction-thought may be the angulation of his celiac artery in relation to his tall body habitus gave the abnormal radiographic findings. Dr. Hernadez's note states he will consult with interventional cardiology Dr. Moreno and if warranted would contact the patient for direct angiography. Patient again here does not complain of any classic celiac artery compression symptoms-no postprandial pain, no weight loss. He does currently complain of nausea. No vomiting. Normal BMs. Denies alcohol/drug use. No chronic NSAID use. MD elicited complaint: abdominal pain Onset (ago): hour(s) Pain Consistency: constant Location: Chest and Epigastric Quality: sharp Radiation: none Migration to: no migration Exacerbating factors: nothing Relieving factors: nothing Associated Symptoms: Reports nausea; Denies change in bowel habits, change in stool character, chills, coffee ground emesis, diarrhea, dysuria, fever(s), heartburn, hematochezia, hematemesis, syncope and vomiting Review of Systems Const: Denies: fever(s), chills, body aches, change in appetite, change in weight, fatigue, malaise or night sweats Eyes: Denies: change in vision or blurry vision ENMT: Denies: odynophagia Card: Denies: chest pain, palpitations, irregular heart rhythm, edema, lightheadedness, syncope, pre-syncope, dyspnea on exertion, orthopnea, leg pain with exertion or acrocyanosis Resp: Denies: dyspnea, productive cough, non-productive cough, pain on inspiration, hemoptysis or chest congestion GI: Reports: abdominal pain and nausea; Denies: vomiting, hematemesis, coffee ground emesis, heartburn, diarrhea, change in bowel habits, change in stool character or hematochezia : Denies: flank pain, difficulty urinating, dysuria, urinary frequency, urinary urgency or urinary hesitancy Musc: Denies: neck pain, back pain or joint pain Skin/Breast: Denies: rash Neuro: Denies: headache(s) PFSH ED PFSH: Family History Mother CAD (coronary artery disease) Cancer Psychiatric illness Sister Cancer Psychiatric illness Denies family history of Diabetes Suicide Lung disease Hypertension Stroke Social History Smoking and tobacco status: never smoked Alcohol intake: never Physical Exam Const: COMMON NORMALS: no acute distress, patient oriented x3, no limitations and alert GENERAL APPEARANCE: cooperative NUTRITIONAL APPEARANCE: thin ORIENTATION/CONSCIOUSNESS: Yes awake, Yes oriented to person, Yes oriented to place and Yes oriented to time HENMT: COMMON NORMALS: normocephalic and atraumatic HEAD & SCALP: normocephalic and atraumatic Chest: COMMONS NORMALS: normal inspection of the chest and normal palpation of entire chest wall Resp: COMMON NORMALS: normal respiratory effort and clear to auscultation bilaterally AUSCULTATION: clear to auscultation bilaterally Cardio: COMMON NORMALS: regular rate and regular rhythm RATE: regular rate RHYTHM: regular rhythm GI: COMMON NORMALS: Normal to inspection, nondistended, normoactive bowel sounds present, Soft to palpation, No hepatosplenomegaly present and no masses PALPATION: Yes Soft to palpation, Yes Tenderness to palpation present (GI) (upper abdomen) and Yes No hepatosplenomegaly present : COMMON NORMALS: Yes no CVA tenderness BLADDER/KIDNEY EXAM: Yes no CVA tenderness Back/Pelvis: COMMON NORMALS: no CVA tenderness Extremity: COMMON NORMALS: normal to inspection GENERAL: Yes normal exam except as noted Neuro: LARS COMA SCALE: document GCS findings Lars coma scale eye opening: Spontaneous [place] coma scale verbal response: Orientated Lars coma scale motor response: Obey commands Lars coma scale total score: 15 COMMON NORMALS: patient oriented x3, CN's II-XII intact bilaterally, moves all extremities, no focal motor deficits and no sensory deficits noted SENSORIUM/ORIENTATION: Yes alert, Yes oriented to person, Yes oriented to place and Yes oriented to time Skin: COMMON NORMALS: no rashes or lesions noted GENERAL SKIN EXAM: no rashes or lesions noted Course Vital Signs: Vital signs: Vital Signs Temperature 98.7 F 11/17/20 13:36 Pulse Rate 79 11/17/20 17:01 Respiratory Rate 14 11/17/20 17:01 Blood Pressure 114/62 11/17/20 17:01 Pulse Oximetry 98 11/17/20 17:01 MDM - Abdominal Pain MDM Narrative: Medical decision making narrative: Patient CTA still showing a high-grade stenosis and possible external compression of the proximal celiac artery. Of note it was mentioned that patient has a central venous catheter in his left IJ terminating in the distal SVC-this is actually patient's ventriculoatrial shunt. Patient symptoms are not consistent with CSF infection or occulsion. We will have patient follow up with Dr. Hernadez to see if he wants to proceed with angiography. Pt also noted to have an elevated lipase at 182. No evidence for pancreatic inflammation on CT. Symptoms have been present intermittently for 6-8 months and non-affected by eating-this does not sound like pancreatitis. Lab Data: Labs: Lab Results 11/17/20 11/17/20 11/17/20 Range/Units 13:35 13:35 13:35 WBC 9.6 (4.0-10.0) 10^3/ uL RBC 4.25 (4.1-5.3) 10^6/u L Hgb 13.7 (11.7-16.6) g/dL Hct 41.8 L (42.0-52.0) % MCV 98.4 H (80-94) fL MCH 32.2 (28.0-34.0) pg MCHC 32.8 (30.0-36.0) g/dL RDW 12.4 (12.1-15.1) % Plt Count 222 (130-400) 10^3/c mm MPV 10.0 (7.4-10.4) fL Neut % (Auto) 57.8 % Lymph % (Auto) 32.4 % [place] % (Auto) 6.5 % Eos % (Auto) 2.4 % Baso % (Auto) 0.6 % Neut # (Auto) 5.55 (1.8-7.7) 10^3/u L Lymph # (Auto) 3.1 (0.8-4.8) 10^3/u L [place] # (Auto) 0.6 (0.2-0.9) 10^3/u L Eos # (Auto) 0.2 (0.0-0.8) 10^3/u L Baso # (Auto) 0.1 (0.0-0.1) 10^3/u L Nucleated RBC % (a uto) 0 % Nucleated RBCs # 0.0 /100WBC Sodium 141 (136-145) mmol/L Potassium 3.5 (3.5-5.1) mmol/L Chloride 105 (98-107) mmol/L Carbon Dioxide 25 (22-29) mmol/L Anion Gap 14.5 (5-19) BUN 13 (6-20) mg/dL Creatinine 0.8 (0.7-1.2) mg/dL GFR Calculation 105.0 (90-130) mL/min Glucose 124 H (65-115) mg/dL Calculated Osmolal ity 294 (285-295) mOsm/k g Lactic Acid 2.3 H (0.5-2.2) mmol/L Lactic Acid (Sepsi s) (0.5-2.2) mmol/L Calcium 9.2 (8.5-10.5) mg/dL Total Bilirubin 0.9 (0.15-1.2) mg/dL AST 49 H (0-40) U/L ALT 24 (0-41) U/L Alkaline Phosphata se 83 (40-130) IU/L Troponin T Gen 5 n g/L (0-15) ng/L Total Protein 7.3 (6.6-8.7) g/dL Albumin 4.3 (3.5-5.2) g/dL Globulin 3.0 (1.3-4.6) g/dL Lipase 182 H (13-60) U/L Urine Color (Yellow) Urine Appearance (CLEAR) Urine pH (5-7) Ur Specific Gravit y (1.005-1.030) Urine Protein (Negative) Urine Glucose (UA) (Normal) Urine Ketones (Negative) Urine Blood (Negative) Urine Nitrate (Negative) Urine Bilirubin (Negative) Urine Urobilinogen (Negative) mg/dL Ur Leukocyte Paulina ase (Negative) 11/17/20 11/17/20 11/17/20 Range/Units 13:35 15:38 16:10 WBC (4.0-10.0) 10^3/ uL RBC (4.1-5.3) 10^6/u L Hgb (11.7-16.6) g/dL Hct (42.0-52.0) % MCV (80-94) fL MCH (28.0-34.0) pg MCHC (30.0-36.0) g/dL RDW (12.1-15.1) % Plt Count (130-400) 10^3/c mm MPV (7.4-10.4) fL Neut % (Auto) % Lymph % (Auto) % [place] % (Auto) % Eos % (Auto) % Baso % (Auto) % Neut # (Auto) (1.8-7.7) 10^3/u L Lymph # (Auto) (0.8-4.8) 10^3/u L [place] # (Auto) (0.2-0.9) 10^3/u L Eos # (Auto) (0.0-0.8) 10^3/u L Baso # (Auto) (0.0-0.1) 10^3/u L Nucleated RBC % (a uto) % Nucleated RBCs # /100WBC Sodium (136-145) mmol/L Potassium (3.5-5.1) mmol/L Chloride (98-107) mmol/L Carbon Dioxide (22-29) mmol/L Anion Gap (5-19) BUN (6-20) mg/dL Creatinine (0.7-1.2) mg/dL GFR Calculation (90-130) mL/min Glucose (65-115) mg/dL Calculated Osmolal ity (285-295) mOsm/k g Lactic Acid (0.5-2.2) mmol/L Lactic Acid (Sepsi s) 1.1 (0.5-2.2) mmol/L Calcium (8.5-10.5) mg/dL Total Bilirubin (0.15-1.2) mg/dL AST (0-40) U/L ALT (0-41) U/L Alkaline Phosphata se (40-130) IU/L Troponin T Gen 5 n g/L 7 (0-15) ng/L Total Protein (6.6-8.7) g/dL Albumin (3.5-5.2) g/dL Globulin (1.3-4.6) g/dL Lipase (13-60) U/L Urine Color Straw (Yellow) Urine Appearance Clear (CLEAR) Urine pH 7 (5-7) Ur Specific Gravit y 1.015 (1.005-1.030) Urine Protein Neg (Negative) Urine Glucose (UA) Norm (Normal) Urine Ketones Negative (Negative) Urine Blood Neg (Negative) Urine Nitrate Negative (Negative) Urine Bilirubin Neg (Negative) Urine Urobilinogen Norm (Negative) mg/dL Ur Leukocyte Paulina ase Negative (Negative) Imaging Data ^: CTA chest/abd/pelvis: Radiologist's impression: [facility] [address] [address] Scan Report Signed with Le Patient: Lambert Nunez Unit #: [id number] : [id number] Age/Sex: 45 / M ADM Date: 11/17/20 Loc: ER Room/Bed: Attending Dr: Ordering Provider/Ordering MD: Genet Parson Date of Service: 11/17/20 Procedure(s): CT angio chest abdomen pelvis Accession Number(s): [id number] Report Number: [id number]/CT angio chest abdomen pelvis THIS REPORT CONTAINS FINDINGS THAT MAY BE CRITICAL TO PATIENT CARE. The findings were verbally communicated via telephone conference with Genet Parson at 4:27 PM CDT on 11/17/2020. The findings were acknowledged and understood. Radiation Dose CTDIVOL = (mGy): DLP = 734.79 734.79 (mGy-cm) Addendum Dictated By: Rhys Watts Addendum Signed By: Rhys Watts Signed Date/Time: 11/17/20 1630 Addendum Cosigned By: PROCEDURE INFORMATION: Exam: CT Angiography Chest With Contrast Exam date and time: 11/17/2020 2:15 PM Age: 45 years old Clinical indication: Sternal or substernal pain; Abdominal pain; Prior surgery; Surgery date: 6+ months; Surgery type: Gb; Patient HX: C/O chest/epigastric pain w nausea - recent cta demonstrated ? celiac artery compression; Additional info: Abdominal/chest pain TECHNIQUE: Imaging protocol: Computed tomographic angiography of the chest with contrast. 3D rendering (Not supervised by radiologist): MIP and/or 3D reconstructed images were created by the technologist. Radiation optimization: All CT scans at this facility use at least one of these dose optimization techniques: automated exposure control; mA and/or kV adjustment per patient size (includes targeted exams where dose is matched to clinical indication); or iterative reconstruction. Contrast material: OMNI 350; Contrast volume: 95 ml; Contrast route: INTRAVENOUS (IV); COMPARISON: CT angio chest abdomen pelvis 10/25/2020 7:16 PM RADIATION DOSE METRICS: Total DLP (mGy-cm): 734.79 FINDINGS: Tubes, catheters and devices: Central venous catheter is placed in the left internal jugular vein and terminates within distal SVC. Pulmonary arteries: Normal. No pulmonary emboli. Aorta: Unremarkable. No aortic aneurysm. No aortic dissection. Lungs: Hyperinflation of lungs. Mosaic attenuation changes of the parenchyma. No consolidation. No endobronchial lesion. No peripheral honeycombing. No septal thickening. Pleural spaces: Unremarkable. No pneumothorax. No pleural effusion. Heart: Unremarkable. No cardiomegaly. No pericardial effusion. Lymph nodes: Unremarkable. No enlarged lymph nodes. Bones/joints: Unremarkable. No acute fracture. Soft tissues: Unremarkable. IMPRESSION: 1. No acute chest findings are identified. 2. Mild emphysematous changes of the lungs. 3. Mild mosaic attenuation changes of the parenchyma are nonspecific. This may indicate underlying small airways disease with scattered areas of mild air trapping. PROCEDURE INFORMATION: Exam: CT Angiography Abdomen and Pelvis With Contrast Exam date and time: 11/17/2020 2:15 PM Age: 45 years old Clinical indication: Sternal or substernal pain; Abdominal pain; Prior surgery; Surgery date: 6+ months; Surgery type: Gb; Patient HX: C/O chest/epigastric pain w nausea - recent cta demonstrated ? celiac artery compression; Additional info: Abdominal/chest pain TECHNIQUE: Imaging protocol: Computed tomographic angiography of the abdomen and pelvis with contrast material. 3D rendering (Not supervised by radiologist): MIP and/or 3D reconstructed images were created by the technologist. Radiation optimization: All CT scans at this facility use at least one of these dose optimization techniques: automated exposure control; mA and/or kV adjustment per patient size (includes targeted exams where dose is matched to clinical indication); or iterative reconstruction. Contrast material: OMNI 350; Contrast volume: 95 ml; Contrast route: INTRAVENOUS (IV); COMPARISON: CT angio chest abdomen pelvis 10/25/2020 7:16 PM RADIATION DOSE METRICS: Total DLP (mGy-cm): 734.79 FINDINGS: Aorta: Small volume scattered atherosclerotic wall plaque abdominal aorta. No aneurysm. No dissection. Negative for periaortic hematoma. 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 Renal arteries: No occlusion or significant stenosis. Right iliac arteries: No occlusion or significant stenosis. Left iliac arteries: No occlusion or significant stenosis. Liver: No mass. Gallbladder and bile ducts: Cholecystectomy. Mild ectasia of biliary system. Pancreas: Unremarkable. No mass. No ductal dilation. Spleen: Unremarkable. No splenomegaly. Adrenal glands: Unremarkable. No mass. Kidneys and ureters: Unremarkable. No solid mass. No hydronephrosis. Stomach and bowel: No inflammatory changes of bowel loops. Moderate fecal volume. Negative for bowel obstruction. No evidence of bowel perforation. Appendix: No evidence of appendicitis. Intraperitoneal space: Unremarkable. No free air. No significant fluid collection. Lymph nodes: Unremarkable. No enlarged lymph nodes. Urinary bladder: Unremarkable. No mass. Reproductive: Unremarkable as visualized. Bones/joints: No acute fracture. No dislocation. Soft tissues: Unremarkable. Other findings: Vasculature is patent. CT/CT angio chest abdomen pelvis IMPRESSION: 1. Negative for acute pathology in the abdomen or pelvis. 2. 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 Arcuate ligament syndrome not excluded. 3. No change from prior. Radiation Dose CTDIVOL = (mGy): DLP = 734.79 734.79 (mGy-cm) Dictated By: Rhys Watts Signed By: Rhys Watts Signed Date/Time: 11/17/20 1611 DD/ 1609 EKG Data ^: EKG 1: EKG interpretation date: 11/17/20 EKG interpretation time: 14:14 Interpretation: Sinus bradycardia Rate 58 ST elevation consistent with early repolarization in leads II, III and aVF No acute changes when compared to EKG performed on 10/26/2020 Discharge Plan Discharge Patient Disposition: Home Clinical Impression: Celiac artery compression syndrome Condition: Stable Prescriptions: No Action albuterol sulfate 90 mcg/actuation Hfa Aerosol Inhaler 2 puff INHALATION Q4H PRN (Reason: Shortness Of Breath) RF: 0 Tylenol Extra Strength 500 mg Tablet 500 mg PO PRN RF: 0 ondansetron HCl [Zofran] 4 mg tablet 4 mg PO Q6H PRN (Reason: nausea and vomiting) Qty: 20 RF: 0 Depakote 500 mg PO BID RF: 0 Discharge Orders: Discharge ED (Routine); Ordered 11/17/20 Ordered By: Genet Parson Referrals: Johnnie Hernadez MD [Physician] - 1-3 days Discharge Diet: Usual diet Discharge Activity: Increase activity as tolerated Activity Restrictions/Additional Instructions: Case management should contact you early next week to set you up to see Dr. Hernadez again to see if he would like to proceed with angiography. Please return to the emergency department for worsening or severe abdominal pain, repetitive episodes of vomiting, fevers, or any other concerns you may have. I hope you begin to feel better soon. Coding Level of Care Code ED Job Service Consultant for [employer] Exam Comprehensive Documented by User: Christiano Meza MD, [facility] 11/18/20 11:23 HPI - Abdominal Pain General: Chief Complaint: Abdominal Pain Stated Complaint: ABD PAIN Time Seen by Provider: 11/17/20 13:23 PFSH ED PFSH: Family History Mother CAD (coronary artery disease) Cancer Psychiatric illness Sister Cancer Psychiatric illness Denies family history of Diabetes Suicide Lung disease Hypertension Stroke Social History Smoking and tobacco status: never smoked Alcohol intake: never Procedures EJ/Peripheral Line Arm R: Time Out Performed: Yes Skin Cleansed in Sterile Fashion: Yes Size (gauge): 20 IV Secured and Dressing Applied: Yes Patient Tolerated Procedure: well Additional Comments: Patient is a difficult stick. EMS attempted to get an IV and were unable to, the nurse has tried multiple times to get an IV and was unsuccessful. The physician data analysis assistant has attempted using ultrasound-guided IV and was unsuccessful. I was able to obtain his peripheral IV using a 20-gauge IV cannula in the right AC under ultrasound guidance. Course Vital Signs: Vital signs: Vital Signs Temperature 98.7 F 11/17/20 13:36 Pulse Rate 79 11/17/20 17:01 Respiratory Rate 14 11/17/20 17:01 Blood Pressure 114/62 11/17/20 17:01 Pulse Oximetry 98 11/17/20 17:01 MDM - Abdominal Pain MDM Narrative: Medical decision making narrative: Reviewed the nurse practitioner's note for complete history and physical examination. I agree with her findings and clinical evaluation. Essentially this gentleman has a recent diagnosis of celiac artery compression syndrome and has had recurrent abdominal pain with this. He is being worked up by the vascular surgeon and professor of english for the appropriate management. Pain was controlled here and he is discharged home. Lab Data: Labs: Lab Results 11/17/20 11/17/20 11/17/20 Range/Units 13:35 13:35 13:35 WBC 9.6 (4.0-10.0) 10^3/ uL RBC 4.25 (4.1-5.3) 10^6/u L Hgb 13.7 (11.7-16.6) g/dL Hct 41.8 L (42.0-52.0) % MCV 98.4 H (80-94) fL MCH 32.2 (28.0-34.0) pg MCHC 32.8 (30.0-36.0) g/dL RDW 12.4 (12.1-15.1) % Plt Count 222 (130-400) 10^3/c mm MPV 10.0 (7.4-10.4) fL Neut % (Auto) 57.8 % Lymph % (Auto) 32.4 % [place] % (Auto) 6.5 % Eos % (Auto) 2.4 % Baso % (Auto) 0.6 % Neut # (Auto) 5.55 (1.8-7.7) 10^3/u L Lymph # (Auto) 3.1 (0.8-4.8) 10^3/u L [place] # (Auto) 0.6 (0.2-0.9) 10^3/u L Eos # (Auto) 0.2 (0.0-0.8) 10^3/u L Baso # (Auto) 0.1 (0.0-0.1) 10^3/u L Nucleated RBC % (a uto) 0 % Nucleated RBCs # 0.0 /100WBC Sodium 141 (136-145) mmol/L Potassium 3.5 (3.5-5.1) mmol/L Chloride 105 (98-107) mmol/L Carbon Dioxide 25 (22-29) mmol/L Anion Gap 14.5 (5-19) BUN 13 (6-20) mg/dL Creatinine 0.8 (0.7-1.2) mg/dL GFR Calculation 105.0 (90-130) mL/min Glucose 124 H (65-115) mg/dL Calculated Osmolal ity 294 (285-295) mOsm/k g Lactic Acid 2.3 H (0.5-2.2) mmol/L Lactic Acid (Sepsi s) (0.5-2.2) mmol/L Calcium 9.2 (8.5-10.5) mg/dL Total Bilirubin 0.9 (0.15-1.2) mg/dL AST 49 H (0-40) U/L ALT 24 (0-41) U/L Alkaline Phosphata se 83 (40-130) IU/L Troponin T Gen 5 n g/L (0-15) ng/L Total Protein 7.3 (6.6-8.7) g/dL Albumin 4.3 (3.5-5.2) g/dL Globulin 3.0 (1.3-4.6) g/dL Lipase 182 H (13-60) U/L Urine Color (Yellow) Urine Appearance (CLEAR) Urine pH (5-7) Ur Specific Gravit y (1.005-1.030) Urine Protein (Negative) Urine Glucose (UA) (Normal) Urine Ketones (Negative) Urine Blood (Negative) Urine Nitrate (Negative) Urine Bilirubin (Negative) Urine Urobilinogen (Negative) mg/dL Ur Leukocyte [place] ase (Negative) 11/17/20 11/17/20 11/17/20 Range/Units 13:35 15:38 16:10 WBC (4.0-10.0) 10^3/ uL RBC (4.1-5.3) 10^6/u L Hgb (11.7-16.6) g/dL Hct (42.0-52.0) % MCV (80-94) fL MCH (28.0-34.0) pg MCHC (30.0-36.0) g/dL RDW (12.1-15.1) % Plt Count (130-400) 10^3/c mm MPV (7.4-10.4) fL Neut % (Auto) % Lymph % (Auto) % [place] % (Auto) % Eos % (Auto) % Baso % (Auto) % Neut # (Auto) (1.8-7.7) 10^3/u L Lymph # (Auto) (0.8-4.8) 10^3/u L [place] # (Auto) (0.2-0.9) 10^3/u L Eos # (Auto) (0.0-0.8) 10^3/u L Baso # (Auto) (0.0-0.1) 10^3/u L Nucleated RBC % (a uto) % Nucleated RBCs # /100WBC Sodium (136-145) mmol/L Potassium (3.5-5.1) mmol/L Chloride (98-107) mmol/L Carbon Dioxide (22-29) mmol/L Anion Gap (5-19) BUN (6-20) mg/dL Creatinine (0.7-1.2) mg/dL GFR Calculation (90-130) mL/min Glucose (65-115) mg/dL Calculated Osmolal ity (285-295) mOsm/k g Lactic Acid (0.5-2.2) mmol/L Lactic Acid (Sepsi s) 1.1 (0.5-2.2) mmol/L Calcium (8.5-10.5) mg/dL Total Bilirubin (0.15-1.2) mg/dL AST (0-40) U/L ALT (0-41) U/L Alkaline Phosphata se (40-130) IU/L Troponin T Gen 5 n g/L 7 (0-15) ng/L Total Protein (6.6-8.7) g/dL Albumin (3.5-5.2) g/dL Globulin (1.3-4.6) g/dL Lipase (13-60) U/L Urine Color Straw (Yellow) Urine Appearance Clear (CLEAR) Urine pH 7 (5-7) Ur Specific Gravit y 1.015 (1.005-1.030) Urine Protein Neg (Negative) Urine Glucose (UA) Norm (Normal) Urine Ketones Negative (Negative) Urine Blood Neg (Negative) Urine Nitrate Negative (Negative) Urine Bilirubin Neg (Negative) Urine Urobilinogen Norm (Negative) mg/dL Ur Leukocyte Paulina ase Negative (Negative) Discharge Plan Discharge Patient Disposition: Home Clinical Impression: Celiac artery compression syndrome Condition: Stable Prescriptions: No Action albuterol sulfate 90 mcg/actuation Hfa Aerosol Inhaler 2 puff INHALATION Q4H PRN (Reason: Shortness Of Breath) RF: 0 Tylenol Extra Strength 500 mg Tablet 500 mg PO PRN RF: 0 ondansetron HCl [Zofran] 4 mg tablet 4 mg PO Q6H PRN (Reason: nausea and vomiting) Qty: 20 RF: 0 Depakote 500 mg PO BID RF: 0 Discharge Orders: Discharge ED (Routine); Ordered 11/17/20 Ordered By: Genet Parson Referrals: Johnnie Hernadez MD [Physician] - 1-3 days Discharge Diet: Usual diet Discharge Activity: Increase activity as tolerated Activity Restrictions/Additional Instructions: Case management should contact you early next week to set you up to see Dr. Hernadez again to see if he would like to proceed with angiography. Please return to the emergency department for worsening or severe abdominal pain, repetitive episodes of vomiting, fevers, or any other concerns you may have. I hope you begin to feel better soon. Coding Level of Care Code ED Job Service Consultant for [facility] Fwd Exam Comprehensive
[2020-11-17 13:32] VITALS: BMI 16.9
[2020-11-17 13:36] VITALS: BP 113/72; PULSE 74; RESP 16; TEMP 37.1; O2SAT 99
[2020-11-17 13:46] LABS: Basophils # 0.1 10^3/uL (0.0-0.1); Basophils % 0.6 %; Eosinophils # 0.2 10^3/uL (0.0-0.8); Eosinophils % 2.4 %; Hematocrit 41.8 % (42.0-52.0); Hemoglobin 13.7 g/dL (11.7-16.6); Lymphocytes # 3.1 10^3/uL (0.8-4.8); Lymphocytes % 32.4 %; Mean Corpuscular HGB Conc 32.8 g/dL (30.0-36.0); Mean Corpuscular Hemoglobin 32.2 pg (28.0-34.0); Mean Corpuscular Volume 98.4 fL (80-94); Monocytes # 0.6 10^3/uL (0.2-0.9); Monocytes % 6.5 %; Neutrophils # 5.55 10^3/uL (1.8-7.7); Neutrophils % 57.8 %; Nucleated Red Blood Cells % 0 %; Platelet Count 222 10^3/cmm (130-400); Red Blood Count 4.25 10^6/uL (4.1-5.3); Red Cell Distribution Width 12.4 % (12.1-15.1); White Blood Count 9.6 10^3/uL (4.0-10.0)
[2020-11-17] MEDS: ondansetron 2 mg/ML SDV 2 mL 4 MG IVP (13:46)
--- NOTE | 2020-11-17 13:53 | CTR_ITS ---
PROCEDURE INFORMATION: Exam: CT Angiography Chest With Contrast Exam date and time: 11/17/2020 2:15 PM Age: 45 years old Clinical indication: Sternal or substernal pain; Abdominal pain; Prior surgery; Surgery date: 6+ months; Surgery type: Gb; Patient HX: C/O chest/epigastric pain w nausea - recent cta demonstrated ? celiac artery compression; Additional info: Abdominal/chest pain TECHNIQUE: Imaging protocol: Computed tomographic angiography of the chest with contrast. 3D rendering (Not supervised by radiologist): MIP and/or 3D reconstructed images were created by the technologist. Radiation optimization: All CT scans at this facility use at least one of these dose optimization techniques: automated exposure control; mA and/or kV adjustment per patient size (includes targeted exams where dose is matched to clinical indication); or iterative reconstruction. Contrast material: OMNI 350; Contrast volume: 95 ml; Contrast route: INTRAVENOUS (IV); COMPARISON: CT angio chest abdomen pelvis 10/25/2020 7:16 PM RADIATION DOSE METRICS: Total DLP (mGy-cm): 734.79 FINDINGS: Tubes, catheters and devices: Central venous catheter is placed in the left internal jugular vein and terminates within distal SVC. Pulmonary arteries: Normal. No pulmonary emboli. Aorta: Unremarkable. No aortic aneurysm. No aortic dissection. Lungs: Hyperinflation of lungs. Mosaic attenuation changes of the parenchyma. No consolidation. No endobronchial lesion. No peripheral honeycombing. No septal thickening. Pleural spaces: Unremarkable. No pneumothorax. No pleural effusion. Heart: Unremarkable. No cardiomegaly. No pericardial effusion. Lymph nodes: Unremarkable. No enlarged lymph nodes. Bones/joints: Unremarkable. No acute fracture. Soft tissues: Unremarkable. IMPRESSION: 1. No acute chest findings are identified. 2. Mild emphysematous changes of the lungs. 3. Mild mosaic attenuation changes of the parenchyma are nonspecific. This may indicate underlying small airways disease with scattered areas of mild air trapping. PROCEDURE INFORMATION: Exam: CT Angiography Abdomen and Pelvis With Contrast Exam date and time: 11/17/2020 2:15 PM Age: 45 years old Clinical indication: Sternal or substernal pain; Abdominal pain; Prior surgery; Surgery date: 6+ months; Surgery type: Gb; Patient HX: C/O chest/epigastric pain w nausea - recent cta demonstrated ? celiac artery compression; Additional info: Abdominal/chest pain TECHNIQUE: Imaging protocol: Computed tomographic angiography of the abdomen and pelvis with contrast material. 3D rendering (Not supervised by radiologist): MIP and/or 3D reconstructed images were created by the technologist. Radiation optimization: All CT scans at this facility use at least one of these dose optimization techniques: automated exposure control; mA and/or kV adjustment per patient size (includes targeted exams where dose is matched to clinical indication); or iterative reconstruction. Contrast material: OMNI 350; Contrast volume: 95 ml; Contrast route: INTRAVENOUS (IV); COMPARISON: CT angio chest abdomen pelvis 10/25/2020 7:16 PM RADIATION DOSE METRICS: Total DLP (mGy-cm): 734.79 FINDINGS: Aorta: Small volume scattered atherosclerotic wall plaque abdominal aorta. No aneurysm. No dissection. Negative for periaortic hematoma. 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 Renal arteries: No occlusion or significant stenosis. Right iliac arteries: No occlusion or significant stenosis. Left iliac arteries: No occlusion or significant stenosis. Liver: No mass. Gallbladder and bile ducts: Cholecystectomy. Mild ectasia of biliary system. Pancreas: Unremarkable. No mass. No ductal dilation. Spleen: Unremarkable. No splenomegaly. Adrenal glands: Unremarkable. No mass. Kidneys and ureters: Unremarkable. No solid mass. No hydronephrosis. Stomach and bowel: No inflammatory changes of bowel loops. Moderate fecal volume. Negative for bowel obstruction. No evidence of bowel perforation. Appendix: No evidence of appendicitis. Intraperitoneal space: Unremarkable. No free air. No significant fluid collection. Lymph nodes: Unremarkable. No enlarged lymph nodes. Urinary bladder: Unremarkable. No mass. Reproductive: Unremarkable as visualized. Bones/joints: No acute fracture. No dislocation. Soft tissues: Unremarkable. Other findings: Vasculature is patent. CT/CT angio chest abdomen pelvis IMPRESSION: 1. Negative for acute pathology in the abdomen or pelvis. 2. 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 Arcuate ligament syndrome not excluded. 3. No change from prior. Radiation Dose CTDIVOL = (mGy): DLP = 734.79~734.79 (mGy-cm)
--- NOTE | 2020-11-17 13:55 | ECG_ITS ---
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 Measurements Intervals [place] Rate: 58 P: 76 [place]: 147 QRS: 85 QRSD: 74 T: 78 QT: 373 QTc: 368 Interpretive Statements SINUS BRADYCARDIA ST ELEVATION, PROBABLY EARLY REPOLARIZATION [ST ELEVATION WITH NORMALLY INFLECTED T WAVE] Compared to ECG 10/26/2020 12:59:52 Sinus rhythm no longer present Myocardial infarct finding no longer present ST (T wave) deviation still present Electronically Signed On 11-17-2020 18:03:36 CDT by Theo Clark M.D. [id number] f
--- NOTE | 2020-11-17 14:11 | PC.PHAR ---
PT STATES HE TAKES CARE OF HIS OWN MEDICATIONS-pt states he takes this DEPAKOTE-pt states he is unsure if its dr or er-pt states he filled it AT [facility] OR [facility] CALLED BOTH OF THE THEM THEY STATE THEY DIDNT FILL AND LOOKED IN THE SYSTEM AT OTHER STORES AND THEY SAW NOTHING FILLED FOR DEPAKOTE FOR THE PT-PT STATES HE MAY HAVE FILLED SOMEWHERE ELSE BUT NOT SURE WHERE-PT STATES HE HASNT FILLED THIS MEDICATION FOR 3 MONTHS
[2020-11-17 14:22] LABS: Alanine Aminotransferase 24 U/L (0-41); Albumin Level 4.3 g/dL (3.5-5.2); Alkaline Phosphatase 83 IU/L (40-130); Anion Gap 14.5 (5-19); Aspartate Amino Transferase 49 U/L (0-40); Blood Urea Nitrogen 13 mg/dL (6-20); Calcium 9.2 mg/dL (8.5-10.5); Carbon Dioxide 25 mmol/L (22-29); Chloride 105 mmol/L (98-107); Glucose 124 mg/dL (65-115); Lactic Sepsis W/Reflex 2.3 mmol/L (0.5-2.2); Lipase 182 U/L (13-60); Osmolality Calculated 294 mOsm/kg (285-295); Potassium 3.5 mmol/L (3.5-5.1); Sodium 141 mmol/L (136-145); Total Bilirubin 0.9 mg/dL (0.15-1.2); Total Protein 7.3 g/dL (6.6-8.7)
[2020-11-17 15:00] VITALS: BP 107/69; PULSE 69; RESP 16; O2SAT 100
--- NOTE | 2020-11-17 15:01 | PC.NURSE ---
US guided IV placed by Dr Meza
[2020-11-17 15:02] VITALS: BP 121/72; RESP 16
[2020-11-17] MEDS: morphine 4 mg/mL SDV 1 mL IVP ×2 (15:02→16:13)
[2020-11-17] MEDS: sodium chloride 0.9% 1,000 ML 999 ML IV (15:03)
[2020-11-17] MEDS: iohexol 350 mg/mL 100 mL Btl IV (15:23)
[2020-11-17 15:31] LABS: Reflex Lactate Order REFLEX LACTIC ORDERD
[2020-11-17 16:00] VITALS: BP 114/62; PULSE 83; RESP 17; O2SAT 98
[2020-11-17 16:09] LABS: Lactic Acid level (Lactate) 1.1 mmol/L (0.5-2.2)
[2020-11-17 16:13] VITALS: RESP 16
--- NOTE | 2020-11-17 16:14 | PC.NURSE ---
Nurse at bedside
[2020-11-17 16:18] LABS: Add Urine Microscopic? NO
[2020-11-17 16:22] LABS: Bilirubin Urine Neg (Negative); Blood Urine Neg (Negative); Glucose Urine UA Norm (Normal); Ketones Urine Negative (Negative); Leukocyte Esterase Urine Negative (Negative); Nitrate Urine Negative (Negative); Protein Urine Neg (Negative); Specific Gravity, Urine 1.015 (1.005-1.030); Urine Appearance Clear (CLEAR); Urine Color Straw (Yellow); Urobilinogen Urine Norm (Negative); pH Urine 7 (5-7)
[2020-11-17 16:52] LABS: Troponin T (5th) Once 7 ng/L (0-15)
[2020-11-17 17:01] VITALS: BP 114/62; PULSE 79; RESP 14; O2SAT 98
--- NOTE | 2020-11-19 15:23 | DCPLANNER ---
technology manager had message to schedule a follow up appointment for patient with heart care with Dr. Hernadez. technology manager called heart care, spoke with Tequila, gave clinic patients information. technology manager was told that patients information would be printed and reviewed, by Brian Hernadez, clinic will call patient with appointment information.
--- NOTE | 2020-11-27 13:43 | DCPLANNER ---
Addendum entered by Edith Choudhury 11/29/20 08:48: Dr. Ramirez nurse called returned case inspector back stating the Dr. Hernadez was not going to see patient at this time due to patient just being seen. Patients information was given to another physician at [facility] for review for an appointment to be scheduled. Original Note: science manager called [facility] to confirm if a follow up appointment had been scheduled for patient. science manager spoke with Sommer, a message was sent to Dr. Ramirez nurse about follow up appointment.
== END 2020-11-17 17:03 | disposition home or self-care (01) ==
PROVIDERS: Emergency Provider Physician Assistant
DX: I77.4 Celiac artery compression syndrome (principal)
CPT/HCPCS: 71275; 74174; 80053; 81003; 83605; 83690; 84484; 85025; 93005; 96361; 96374; 96375; 96376; 99284; J2270; J2405; J7030; Q9967

== ENCOUNTER 2020-12-06 05:33 | Emergency (ER) | payer SELFPAY ==
[2020-12-06 05:33] VITALS: BP 133/84; PULSE 87; RESP 18; TEMP 36.4; O2SAT 99; BMI 16.9
--- NOTE | 2020-12-06 06:01 | ED_ITS ---
HPI - Abdominal Pain General: Chief Complaint: Abdominal Pain Stated Complaint: abd pain Time Seen by Provider: 12/06/20 05:35 History of Present Illness: HPI narrative: 45-year-old male is emergency room complaining of cramping abdominal pain that began 30 minutes prior to arrival. Has some nausea no vomiting. He has been to the ER multiple times for this. He has had several CTs there is a question of arcuate ligament impinging on his celiac artery. He did see Dr. Hernadez for that Dr. Hernadez was referred him to Dr. Briseno for possible angiogram to further evaluate. Dr. Hernadez's note was reviewed. Patient does admit to smoking marijuana regularly. Is been going on for some time. 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 He denies any medic easy melena hematemesis coffee-ground emesis denies dysuria urgency or frequency and denies fever. MD elicited complaint: abdominal pain Onset (ago): hour(s) Pain Consistency: intermittent Location: Diffuse Severity: moderate Quality: cramping Radiation: none Migration to: no migration Exacerbating factors: nothing Relieving factors: nothing Associated Symptoms: Denies anorexia, belching, bloating, change in bowel habits, change in stool character, chills, coffee ground emesis, constipation, GI cramping, diarrhea, dyspepsia, dysuria, excessive flatus, fever(s), heartburn, hematochezia, hematuria, hematemesis, fecal incontinence, loose stools, melena, nausea, poor appetite, syncope and vomiting Review of Systems Const: Denies: fever(s) or chills ENMT: Denies: throat pain, ear or mastoid pain, nasal discharge or nasal congestion Card: Denies: syncope Resp: Denies: dyspnea, productive cough or non-productive cough GI: Denies: nausea, vomiting, hematemesis, coffee ground emesis, heartburn, diarrhea, constipation, bloating, GI cramping, belching, excessive flatus, fecal incontinence, change in bowel habits, change in stool character, hematochezia or melena : Denies: dysuria Skin/Breast: Denies: rash or pruritus PFSH ED PFSH: Family History Mother CAD (coronary artery disease) Cancer Psychiatric illness Sister Cancer Psychiatric illness Denies family history of Diabetes Suicide Lung disease Hypertension Stroke Social History Smoking and tobacco status: never smoked Alcohol intake: never Physical Exam Const: COMMON NORMALS: no acute distress GENERAL APPEARANCE: cooperative and comfortable ORIENTATION/CONSCIOUSNESS: Yes awake, Yes oriented to person, Yes oriented to place and Yes oriented to time HENMT: COMMON NORMALS: normocephalic, atraumatic and hearing grossly normal bilaterally HEAD & SCALP: normocephalic and atraumatic Neck/C-Spine: COMMON NORMALS: no JVD Resp: COMMON NORMALS: normal respiratory effort, No retractions, No use of accessory muscles and clear to auscultation bilaterally AUSCULTATION: clear to auscultation bilaterally Cardio: COMMON NORMALS: no JVD, regular rate, regular rhythm and No murmurs present (Cardio) RATE: regular rate RHYTHM: regular rhythm GI: COMMON NORMALS: No hepatosplenomegaly present AUSCULTATION: Yes normoactive bowel sounds PALPATION: Yes Tenderness to palpation present (GI), No Guarding due to palpation present (GI) and Yes No hepatosplenomegaly present Extremity: COMMON NORMALS: normal to inspection, capillary refill normal, no clubbing, cyanosis or edema, no calf tenderness and no pedal edema Neuro: SENSORIUM/ORIENTATION: Yes oriented to person, Yes oriented to place and Yes oriented to time Skin: COMMON NORMALS: no rashes or lesions noted GENERAL SKIN EXAM: no rashes or lesions noted Course Vital Signs: Vital signs: Vital Signs Temperature 97.6 F 12/06/20 05:33 Pulse Rate 62 12/06/20 08:03 Respiratory Rate 15 12/06/20 08:03 Blood Pressure 104/64 12/06/20 08:03 Pulse Oximetry 100 12/06/20 08:03 MDM - Abdominal Pain MDM Narrative: Medical decision making narrative: Patient's abdominal exam is rather benign its mildly tender but very diffuse in nature. He has has this chronically does admit to regular marijuana use which I suspect may play a role in some of this. He has seen Dr. Hernadez and is supposed to have a follow-up with Dr. Moreno is not done yet the plan according Dr. Hernadez's note was to consider angiogram to evaluate for arcuate ligament syndrome with the celiac artery. His lactate is normal there is no sign of bowel obstruction and we can discharge him home at this point given some pain medications antiemetics will try to expedite his appointment with Dr. Briseno through case management. Lab Data: Labs: Lab Results 12/06/20 12/06/20 12/06/20 Range/Units 06:07 06:07 06:20 WBC 7.3 (4.0-10.0) 10^3/ uL RBC 3.83 L (4.1-5.3) 10^6/u L Hgb 12.5 (11.7-16.6) g/dL Hct 38.2 L (42.0-52.0) % MCV 99.7 H (80-94) fL MCH 32.6 (28.0-34.0) pg MCHC 32.7 (30.0-36.0) g/dL RDW 13.0 (12.1-15.1) % Plt Count 197 (130-400) 10^3/c mm MPV 9.8 (7.4-10.4) fL Neut % (Auto) 45.4 % Lymph % (Auto) 39.6 % Mcdowell % (Auto) 9.4 % Eos % (Auto) 4.4 % Baso % (Auto) 0.8 % Neut # (Auto) 3.33 (1.8-7.7) 10^3/u L Lymph # (Auto) 2.9 (0.8-4.8) 10^3/u L Mcdowell # (Auto) 0.7 (0.2-0.9) 10^3/u L Eos # (Auto) 0.3 (0.0-0.8) 10^3/u L Baso # (Auto) 0.1 (0.0-0.1) 10^3/u L Nucleated RBC % (a uto) 0 % Nucleated RBCs # 0.0 /100WBC Sodium 138 (136-145) mmol/L Potassium 4.2 (3.5-5.1) mmol/L Chloride 101 (98-107) mmol/L Carbon Dioxide 32 H (22-29) mmol/L Anion Gap 9.2 (5-19) BUN 17 (6-20) mg/dL Creatinine 0.8 (0.7-1.2) mg/dL GFR Calculation 105.0 (90-130) mL/min Glucose 88 (65-115) mg/dL Calculated Osmolal ity 287 (285-295) mOsm/k g Lactate 1.4 (0.5-2.2) mmol/L Calcium 8.5 (8.5-10.5) mg/dL Total Bilirubin 0.3 (0.15-1.2) mg/dL AST 61 H (0-40) U/L ALT 34 (0-41) U/L Alkaline Phosphata se 67 (40-130) IU/L Total Protein 6.5 L (6.6-8.7) g/dL Albumin 4.2 (3.5-5.2) g/dL Globulin 2.3 (1.3-4.6) g/dL Lipase 57 (13-60) U/L Discharge Plan Discharge Patient Disposition: Home Clinical Impression: Chronic abdominal pain Condition: Stable Prescriptions: New promethazine 25 mg tablet 25 mg PO Q6H PRN (Reason: nausea and vomiting) Qty: 14 RF: 0 tramadol 50 mg tablet 50 mg PO Q8H PRN (Reason: pain) Qty: 10 RF: 0 No Action albuterol sulfate 90 mcg/actuation Hfa Aerosol Inhaler 2 puff INHALATION Q4H PRN (Reason: Shortness Of Breath) RF: 0 Tylenol Extra Strength 500 mg Tablet 500 mg PO PRN RF: 0 ondansetron HCl [Zofran] 4 mg tablet 4 mg PO Q6H PRN (Reason: nausea and vomiting) Qty: 20 RF: 0 Depakote 500 mg PO BID RF: 0 Discharge Orders: Discharge ED (Routine); Ordered 12/06/20 Ordered By: Brian Meneses Discharge Diet: Clear Liquid Discharge Activity: Increase activity as tolerated Patient Instructions: Abdominal Pain (ED), Opioid Safety Activity Restrictions/Additional Instructions: Case management will call to make an appointment with Dr. Briseno for you. Coding Level of Care Code ED Dope Edger for Fei Ku
[2020-12-06 06:15] LABS: Basophils # 0.1 10^3/uL (0.0-0.1); Basophils % 0.8 %; Eosinophils # 0.3 10^3/uL (0.0-0.8); Eosinophils % 4.4 %; Hematocrit 38.2 % (42.0-52.0); Hemoglobin 12.5 g/dL (11.7-16.6); Lymphocytes # 2.9 10^3/uL (0.8-4.8); Lymphocytes % 39.6 %; Mean Corpuscular HGB Conc 32.7 g/dL (30.0-36.0); Mean Corpuscular Hemoglobin 32.6 pg (28.0-34.0); Mean Corpuscular Volume 99.7 fL (80-94); Mean Platelet Volume 9.8 fL (7.4-10.4); Monocytes # 0.7 10^3/uL (0.2-0.9); Monocytes % 9.4 %; Neutrophils # 3.33 10^3/uL (1.8-7.7); Neutrophils % 45.4 %; Nucleated Red Blood Cells % 0 %; Platelet Count 197 10^3/cmm (130-400); Red Blood Count 3.83 10^6/uL (4.1-5.3); White Blood Count 7.3 10^3/uL (4.0-10.0)
--- NOTE | 2020-12-06 06:15 | XR_ITS ---
WS: [id number] Acute abdomen series, 12/06/2020 Clinical Data: abd pain Comparison: None. Findings: In the chest there are no nodules, masses or effusions. The heart is normal. The pulmonary vascularity is not increased. No free air is seen beneath the diaphragms. No abnormal intra-abdominal masses or calcifications are seen. There are clips in the right upper quadrant from a cholecystectomy. There is air and fecal mate rial throughout the colon. There is no evidence of obstruction. XR/XR acute abdomen series 67929 Impression: Negative acute abdomen series.
[2020-12-06] MEDS: morphine 4 mg/mL SDV 1 mL IVP (06:26)
[2020-12-06 06:28] VITALS: BP 121/94; PULSE 88; RESP 19; O2SAT 100
[2020-12-06 06:32] LABS: Alanine Aminotransferase 34 U/L (0-41); Albumin Level 4.2 g/dL (3.5-5.2); Alkaline Phosphatase 67 IU/L (40-130); Anion Gap 9.2 (5-19); Aspartate Amino Transferase 61 U/L (0-40); Blood Urea Nitrogen 17 mg/dL (6-20); Calcium 8.5 mg/dL (8.5-10.5); Carbon Dioxide 32 mmol/L (22-29); Chloride 101 mmol/L (98-107); Globulin 2.3 g/dL (1.3-4.6); Glucose 88 mg/dL (65-115); Lipase 57 U/L (13-60); Osmolality Calculated 287 mOsm/kg (285-295); Potassium 4.2 mmol/L (3.5-5.1); Sodium 138 mmol/L (136-145); Total Bilirubin 0.3 mg/dL (0.15-1.2); Total Protein 6.5 g/dL (6.6-8.7)
[2020-12-06 06:42] LABS: Lactate (Lactic Acid level) 1.4 mmol/L (0.5-2.2)
[2020-12-06 06:57] VITALS: BP 115/78; O2SAT 100
[2020-12-06] MEDS: HYDROcodone-acetaminophen 5-325 mg Tablet 2 TAB PO (07:12)
[2020-12-06 08:03] VITALS: BP 104/64; PULSE 62; RESP 15; O2SAT 100
--- NOTE | 2020-12-06 10:24 | DCPLANNER ---
marketing area manager had message to schedule a follow up appointment for patient with Dr. Pavon, at [facility]. marketing area manager called [facility], spoke with Tequila, gave clinic patients information, a follow up appointment was scheduled for Wednesday, December 18, 2020 at 2:[address] Pavon. marketing area manager called phone number [phone], unable to speak with patient at this time, a voicemail was left for patient to return case management manager phone call for appointment information. marketing area manager also had message to schedule a follow up appointment for patient with general surgery for chronic abdominal pain. marketing area manager emailed patients information to both Violeta and Heather at [facility] General Surgery. Patients information will be printed and reviewed. Clinic will call patient with appointment information.
--- NOTE | 2020-12-17 08:05 | DCPLANNER ---
Patient has a follow appointment scheduled for Friday, December 18, 2020 at 2:[address] Moreno at [facility]. Clinic will contact patient with appointment information. material control manager does not see a follow up appointment scheduled with General Surgery at this time, emailed Heather at [facility] general surgery to see if she could schedule the appointment.
--- NOTE | 2020-12-19 07:35 | DCPLANNER ---
Patient had a follow up appointment scheduled for 12.18.[address] Moreno at [facility] - patient did not attend appointment.
--- NOTE | 2020-12-31 07:45 | DCPLANNER ---
tax manager emailed Heather at [facility] to confirm if an appointment had been scheduled for patient. tax manager was told that clinic was unable to reach patient, and that a letter was sent to patient to schedule a follow up appointment.
== END 2020-12-06 08:04 | disposition home or self-care (01) ==
PROVIDERS: Emergency Medicine; Emergency Provider Family Medicine
DX: G89.29 Other chronic pain (principal); R10.9 Unspecified abdominal pain
CPT/HCPCS: 36415; 74022; 80053; 83605; 83690; 85025; 96374; 99283; J2270

== ENCOUNTER 2020-12-21 15:10 | Emergency (ER) | payer SELFPAY ==
[2020-12-21 15:13] VITALS: BP 124/82; PULSE 68; RESP 18; TEMP 37.1; O2SAT 98; BMI 16.9
--- NOTE | 2020-12-21 15:45 | ECG_ITS ---
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
[2020-12-21 15:54] LABS: Basophils # 0.1 10^3/uL (0.0-0.1); Eosinophils # 0.5 10^3/uL (0.0-0.8); Eosinophils % 5.3 %; Hematocrit 45.1 % (42.0-52.0); Hemoglobin 14.5 g/dL (11.7-16.6); Lymphocytes % 34.9 %; Mean Corpuscular HGB Conc 32.2 g/dL (30.0-36.0); Mean Corpuscular Hemoglobin 32.6 pg (28.0-34.0); Mean Corpuscular Volume 101.3 fL (80-94); Mean Platelet Volume 10.6 fL (7.4-10.4); Monocytes # 0.8 10^3/uL (0.2-0.9); Neutrophils % 49.5 %; Nucleated Red Blood Cells % 0 %; Platelet Count 227 10^3/cmm (130-400); Red Blood Count 4.45 10^6/uL (4.1-5.3); Red Cell Distribution Width 13.1 % (12.1-15.1); White Blood Count 8.7 10^3/uL (4.0-10.0)
[2020-12-21] MEDS: sodium chloride 0.9% 1,000 ML 999 ML IV (16:02)
[2020-12-21 16:04] LABS: Alanine Aminotransferase 22 U/L (0-41); Albumin Level 4.5 g/dL (3.5-5.2); Alkaline Phosphatase 75 IU/L (40-130); Anion Gap 15.8 (5-19); Aspartate Amino Transferase 23 U/L (0-40); Blood Urea Nitrogen 17 mg/dL (6-20); Calcium 8.6 mg/dL (8.5-10.5); Carbon Dioxide 25 mmol/L (22-29); Chloride 100 mmol/L (98-107); Globulin 2.9 g/dL (1.3-4.6); Glomerular Filtration Rate 81.2 mL/min (90-130); Glucose 99 mg/dL (65-115); Osmolality Calculated 286 mOsm/kg (285-295); Potassium 3.8 mmol/L (3.5-5.1); Sodium 137 mmol/L (136-145); Total Bilirubin 0.6 mg/dL (0.15-1.2); Total Protein 7.4 g/dL (6.6-8.7)
[2020-12-21 16:15] LABS: Lipase 677 U/L (13-60)
[2020-12-21 16:21] LABS: Add Urine Microscopic? NO; Charge for UA Resulting for Rev
--- NOTE | 2020-12-21 16:24 | CTR_ITS ---
PROCEDURE INFORMATION: Exam: CT Angiography Abdomen and Pelvis With Contrast, GI Bleeding Exam date and time: 12/21/2020 4:38 PM Age: 45 years old Clinical indication: Abdominal pain; Generalized; Additional info: H/o celiac artery stenosis. Elevated lipase. TECHNIQUE: Imaging protocol: Computed tomographic angiography of the abdomen and pelvis with contrast. 3D rendering (Not supervised by radiologist): MIP and/or 3D reconstructed images were created by the technologist. Radiation optimization: All CT scans at this facility use at least one of these dose optimization techniques: automated exposure control; mA and/or kV adjustment per patient size (includes targeted exams where dose is matched to clinical indication); or iterative reconstruction. Contrast material: OMNIPAQUE 350; Contrast volume: 95 ml; Contrast route: INTRAVENOUS (IV); COMPARISON: CT angio chest abdomen pelvis 11/17/2020 3:27 PM RADIATION DOSE METRICS: Total DLP (mGy-cm): 489.55 FINDINGS: Aorta: Scattered mild atherosclerotic plaque. No aortic aneurysm. No aortic dissection. Celiac trunk and mesenteric arteries: There is moderate to severe grade narrowing of the proximal 12 mm of the celiac artery which appears mildly improved when compared to the prior study. Mesenteric arteries are patent. Renal arteries: No occlusion or significant stenosis. Right iliac arteries: Mild scattered atherosclerotic plaque. No occlusion or significant stenosis. Left iliac arteries: Mild scattered atherosclerotic plaque. No occlusion or significant stenosis. Liver: No mass. Gallbladder and bile ducts: The gallbladder has been removed. Pancreas: Unremarkable. No mass. No ductal dilation. Spleen: Unremarkable. No splenomegaly. Adrenal glands: Kidneys and ureters: Unremarkable. No solid mass. No hydronephrosis. Stomach and bowel: There is mucosal thickening of the distal esophagus and gastroesophageal junction. Colonic constipation is present. Appendix: No evidence of appendicitis. Intraperitoneal space: Unremarkable. No free air. No significant fluid collection. Lymph nodes: Unremarkable. No enlarged lymph nodes. Urinary bladder: The bladder is distended. Reproductive: Unremarkable as visualized. Bones/joints: There are degenerative changes in the visualized spine. Soft tissues: Unremarkable. CT/CT angio abdomen pelvis [id number] IMPRESSION: 1. There is moderate to severe grade narrowing of the proximal 12 mm of the celiac artery which appears mildly improved when compared to the prior study. 2. There is mucosal thickening of the distal esophagus and gastroesophageal junction consistent with nonspecific esophagitis/gastritis. 3.Colonic constipation is present. Radiation Dose CTDIVOL = (mGy): DLP = 489.55 (mGy-cm)
[2020-12-21 16:31] LABS: Troponin(5th) Baseline 8 ng/L (0-15)
[2020-12-21 16:37] LABS: Bilirubin Urine Neg (Negative); Blood Urine Neg (Negative); Glucose Urine UA Norm (Normal); Ketones Urine Negative (Negative); Leukocyte Esterase Urine Negative (Negative); Nitrate Urine Negative (Negative); Protein Urine Neg (Negative); Urine Appearance Clear (CLEAR); Urine Color Straw (Yellow); Urobilinogen Urine Norm (Negative); pH Urine 6.5 (5-7)
[2020-12-21 16:38] LABS: Amphetamines Screen Urine Negative (Negative); Barbiturates Screen Urine Negative (Negative); Benzodiazepines Screen Urine Negative (Negative); Cocaine Screen Urine Negative (Negative); Opiate Screen Urine Negative (Negative); PCP Screen Urine Negative (Negative); THC Screen Urine Positive (Negative)
[2020-12-21 16:56] LABS: Alcohol Level < 10 mg/dL (0-10)
[2020-12-21 16:59] LABS: Lactate (Lactic Acid level) 1.2 mmol/L (0.5-2.2)
[2020-12-21] MEDS: iohexol 350 mg/mL 100 mL Btl IV (17:49)
--- NOTE | 2020-12-21 19:36 | ED_ITS ---
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 He comes to the ER today complaining of increased upper abdominal pain. Is not related to eating he eats and drinks very well. Denies nausea and vomiting. He has seen Dr. Hernadez for the stenosis of that artery and he is supposed to have been seeing Dr. Moreno as well but he says he has not been able to follow-up. He has been provided a referral for that in the past and will again today. I stressed the importance of following up with both doctors as they are going to consult with each other and decide on the final plan for this artery stenosis. He understands and will follow up. Denies drinking alcohol or illegal drugs other than marijuana. MD elicited complaint: abdominal pain Pain Consistency: constant Location: Epigastric Severity: moderate Quality: sharp Migration to: no migration Exacerbating factors: nothing Relieving factors: nothing Associated Symptoms: Reports no associated symptoms; Denies change in stool character, constipation, diarrhea, heartburn, nausea and vomiting Review of Systems General: Reports: 10 or more systems reviewed and unremarkable except in HPI and below Const: Denies: fatigue Eyes: Denies: change in vision, blurry vision or eye redness ENMT: Denies: throat pain, swelling of lips/tongue, ear or mastoid pain or nasal congestion Card: Denies: chest pain, palpitations, irregular heart rhythm, edema, dyspnea on exertion or orthopnea Resp: Denies: dyspnea, productive cough or non-productive cough GI: Reports: abdominal pain; Denies: nausea, vomiting, heartburn, diarrhea, constipation or change in stool character : Denies: flank pain, urinary frequency or urinary urgency Musc: Denies: neck pain, back pain, extremity pain, joint pain, joint redness, limited range of motion or muscle weakness Skin/Breast: Denies: rash, pruritus, erythema, skin pain or skin tenderness Neuro: Denies: headache(s), numbness in extremities, weakness in extremities, sensory changes, difficulty walking, dizziness, confusion or Slurred speech pres ent Psych: Denies: anxiety or depression Endo: Denies: polyuria All/Imm: Denies: urticaria, throat swelling or tongue swelling PFSH ED PFSH: Family History Mother CAD (coronary artery disease) Cancer Psychiatric illness Sister Cancer Psychiatric illness Denies family history of Diabetes Suicide Lung disease Hypertension Stroke Social History Smoking and tobacco status: never smoked Alcohol intake: never Physical Exam Const: COMMON NORMALS: no acute distress, average body habitus, patient oriented x3, no limitations, healthy appearing, alert and well nourished GENERAL APPEARANCE: cooperative, comfortable, well kempt and well developed ORIENTATION/CONSCIOUSNESS: Yes awake, Yes oriented to person, Yes oriented to place and Yes oriented to time HENMT: COMMON NORMALS: normocephalic, external ears normal and Normal external nose present HEAD & SCALP: normal to inspection and normocephalic NOSE: Normal external nose present EXTERNAL EAR: Yes external ears normal MOUTH: Normal oral and palatal mucosa present THROAT: posterior oropharynx normal Eye: COMMON NORMALS: Equal, round and reactive pupils present and EOMs intact bilaterally GENERAL EYE: appearance normal, both eyes and all related structures PUPIL: Yes Equal, round and reactive pupils present Neck/C-Spine: COMMON NORMALS: full ROM, no lymphadenopathy, no meningeal signs and no JVD GENERAL: Yes normal visual inspection Lymph: LYMPHATIC: no lymphadenopathy noted Chest: COMMONS NORMALS: normal inspection of the chest and normal palpation of entire chest wall Resp: COMMON NORMALS: normal respiratory effort, No retractions, No use of accessory muscles, clear to auscultation bilaterally and percussion normal EFFORT & INSPECTION: Yes able to speak in complete sentences AUSCULTATION: clear to auscultation bilaterally PERCUSSION: percussion normal Cardio: COMMON NORMALS: no JVD, regular rate, regular rhythm, S1 normal heart sound present, S2 normal heart sound present and Peripheral pulses 2+ throughout RATE: regular rate RHYTHM: regular rhythm HEART SOUNDS: S1 normal heart sound present and S2 normal heart sound present PERIPHERAL PULSES: Peripheral pulses 2+ throughout GI: COMMON NORMALS: Normal to inspection, nondistended, normoactive bowel sounds present, Soft to palpation and no masses INSPECTION: Yes normal to inspection PALPATION: Yes Soft to palpation GI image (male): 1. Upper abdominal tenderness. Soft. Normal bowel sounds. No rebound tenderness. : COMMON NORMALS: Yes no CVA tenderness BLADDER/KIDNEY EXAM: Yes no CVA tenderness Back/Pelvis: COMMON NORMALS: no CVA tenderness, thoracic and lumbar spine normal to inspection, no thoracic nor lumbar tenderness and thoraco-lumbar ROM normal Extremity: COMMON NORMALS: normal to inspection, full ROM, capillary refill normal, no joint enlargement and no pedal edema GENERAL: Yes normal exam except as noted Neuro: COMMON NORMALS: patient oriented x3, CN's II-XII intact bilaterally, moves all extremities, no focal motor deficits, no sensory deficits noted and gait normal SENSORIUM/ORIENTATION: Yes alert, Yes oriented to person, Yes oriented to place and Yes oriented to time MENINGEAL SIGNS: Yes no meningeal signs Psych: COMMON NORMALS: mental status grossly normal, Normal thought process present, cooperative, normal affect and speech normal APPEARANCE: Yes well kempt ATTITUDE: Yes calm SPEECH: Yes normal speech THOUGHT PROCESS: Normal thought process present Skin: COMMON NORMALS: no rashes or lesions noted GENERAL SKIN EXAM: no r ashes or lesions noted Course Vital Signs: Vital signs: Vital Signs Temperature 98.7 F 12/21/20 15:13 Pulse Rate 68 12/21/20 15:13 Respiratory Rate 18 12/21/20 15:13 Blood Pressure 124/82 12/21/20 15:13 Pulse Oximetry 98 12/21/20 15:13 MDM - Abdominal Pain MDM Narrative: Medical decision making narrative: The patient came to the ER complaining of upper abdominal pain. This pain seems to be different from his previous visits though in a similar location. His lipase is elevated. CT shows no acute changes to his pancreas and he is eating and drinking well. It shows the celiac artery has slight improvement. I placed a case management referral to help him get in with Dr. Briseno to discuss further as has been the plan as an outpatient during his management of this condition. Return to the ER with worsening symptoms for reevaluation at any time otherwise follow-up with primary care physician in a few days and cardiology within a week. Lab Data: Labs: Lab Results 12/21/20 12/21/20 12/21/20 Range/Units 15:32 15:32 15:32 WBC 8.7 (4.0-10.0) 10^3/ uL RBC 4.45 (4.1-5.3) 10^6/u L Hgb 14.5 (11.7-16.6) g/dL Hct 45.1 (42.0-52.0) % MCV 101.3 H (80-94) fL MCH 32.6 (28.0-34.0) pg MCHC 32.2 (30.0-36.0) g/dL RDW 13.1 (12.1-15.1) % Plt Count 227 (130-400) 10^3/c mm MPV 10.6 H (7.4-10.4) fL Neut % (Auto) 49.5 % Lymph % (Auto) 34.9 % [place] % (Auto) 9.0 % Eos % (Auto) 5.3 % Baso % (Auto) 1.0 % Neut # (Auto) 4.30 (1.8-7.7) 10^3/u L Lymph # (Auto) 3.0 (0.8-4.8) 10^3/u L [place] # (Auto) 0.8 (0.2-0.9) 10^3/u L Eos # (Auto) 0.5 (0.0-0.8) 10^3/u L Baso # (Auto) 0.1 (0.0-0.1) 10^3/u L Nucleated RBC % (a uto) 0 % Nucleated RBCs # 0.0 /100WBC Sodium 137 (136-145) mmol/L Potassium 3.8 (3.5-5.1) mmol/L Chloride 100 (98-107) mmol/L Carbon Dioxide 25 (22-29) mmol/L Anion Gap 15.8 (5-19) BUN 17 (6-20) mg/dL Creatinine 1.0 (0.7-1.2) mg/dL GFR Calculation 81.2 L (90-130) mL/min Glucose 99 (65-115) mg/dL Calculated Osmolal ity 286 (285-295) mOsm/k g Lactate (0.5-2.2) mmol/L Calcium 8.6 (8.5-10.5) mg/dL Total Bilirubin 0.6 (0.15-1.2) mg/dL AST 23 (0-40) U/L ALT 22 (0-41) U/L Alkaline Phosphata se 75 (40-130) IU/L Troponin T Baselin e (0-15) ng/L Total Protein 7.4 (6.6-8.7) g/dL Albumin 4.5 (3.5-5.2) g/dL Globulin 2.9 (1.3-4.6) g/dL Lipase 677 H (13-60) U/L Urine Color (Yellow) Urine Appearance (CLEAR) Urine pH (5-7) Ur Specific Gravit y (1.005-1.030) Urine Protein (Negative) Urine Glucose (UA) (Normal) Urine Ketones (Negative) Urine Blood (Negative) Urine Nitrate (Negative) Urine Bilirubin (Negative) Urine Urobilinogen (Negative) mg/dL Ur Leukocyte Paulina ase (Negative) Urine Opiates Scre en (Negative) ng/mL Ur Barbiturates Sc reen (Negative) ng/mL Ur Phencyclidine S crn (Negative) ng/mL Ur Amphetamines Sc reen (Negative) ng/mL U Benzodiazepines Scrn (Negative) ng/mL Urine Cocaine Scre en (Negative) ng/mL U Marijuana (THC) Screen (Negative) ng/mL Ethyl Alcohol < 10 (0-10) mg/dL 12/21/20 12/21/20 12/21/20 Range/Units 15:32 16:06 16:06 WBC (4.0-10.0) 10^3/ uL RBC (4.1-5.3) 10^6/u L Hgb (11.7-16.6) g/dL Hct (42.0-52.0) % MCV (80-94) fL MCH (28.0-34.0) pg MCHC (30.0-36.0) g/dL RDW (12.1-15.1) % Plt Count (130-400) 10^3/c mm MPV (7.4-10.4) fL Neut % (Auto) % Lymph % (Auto) % [place] % (Auto) % Eos % (Auto) % Baso % (Auto) % Neut # (Auto) (1.8-7.7) 10^3/u L Lymph # (Auto) (0.8-4.8) 10^3/u L [place] # (Auto) (0.2-0.9) 10^3/u L Eos # (Auto) (0.0-0.8) 10^3/u L Baso # (Auto) (0.0-0.1) 10^3/u L Nucleated RBC % (a uto) % Nucleated RBCs # /100WBC Sodium (136-145) mmol/L Potassium (3.5-5.1) mmol/L Chloride (98-107) mmol/L Carbon Dioxide (22-29) mmol/L Anion Gap (5-19) BUN (6-20) mg/dL Creatinine (0.7-1.2) mg/dL GFR Calculation (90-130) mL/min Glucose (65-115) mg/dL Calculated Osmolal ity (285-295) mOsm/k g Lactate 1.2 (0.5-2.2) mmol/L Calcium (8.5-10.5) mg/dL Total Bilirubin (0.15-1.2) mg/dL AST (0-40) U/L ALT (0-41) U/L Alkaline Phosphata se (40-130) IU/L Troponin T Baselin e 8 (0-15) ng/L Total Protein (6.6-8.7) g/dL Albumin (3.5-5.2) g/dL Globulin (1.3-4.6) g/dL Lipase (13-60) U/L Urine Color (Yellow) Urine Appearance (CLEAR) Urine pH (5-7) Ur Specific Gravit y (1.005-1.030) Urine Protein (Negative) Urine Glucose (UA) (Normal) Urine Ketones (Negative) Urine Blood (Negative) Urine Nitrate (Negative) Urine Bilirubin (Negative) Urine Urobilinogen (Negative) mg/dL Ur Leukocyte Paulina ase (Negative) Urine Opiates Scre en Negative (Negative) ng/mL Ur Barbiturates Sc reen Negative (Negative) ng/mL Ur Phencyclidine S crn Negative (Negative) ng/mL Ur Amphetamines Sc reen Negative (Negative) ng/mL U Benzodiazepines Scrn Negative (Negative) ng/mL Urine Cocaine Scre en Negative (Negative) ng/mL U Marijuana (THC) Screen Positive H (Negative) ng/mL Ethyl Alcohol (0-10) mg/dL 12/21/20 Range/Units 16:06 WBC (4.0-10.0) 10^3/ uL RBC (4.1-5.3) 10^6/u L Hgb (11.7-16.6) g/dL Hct (42.0-52.0) % MCV (80-94) fL MCH (28.0-34.0) pg MCHC (30.0-36.0) g/dL RDW (12.1-15.1) % Plt Count (130-400) 10^3/c mm MPV (7.4-10.4) fL Neut % (Auto) % Lymph % (Auto) % [place] % (Auto) % Eos % (Auto) % Baso % (Auto) % Neut # (Auto) (1.8-7.7) 10^3/u L Lymph # (Auto) (0.8-4.8) 10^3/u L [place] # (Auto) (0.2-0.9) 10^3/u L Eos # (Auto) (0.0-0.8) 10^3/u L Baso # (Auto) (0.0-0.1) 10^3/u L Nucleated RBC % (a uto) % Nucleated RBCs # /100WBC Sodium (136-145) mmol/L Potassium (3.5-5.1) mmol/L Chloride (98-107) mmol/L Carbon Dioxide (22-29) mmol/L Anion Gap (5-19) BUN (6-20) mg/dL Creatinine (0.7-1.2) mg/dL GFR Calculation (90-130) mL/min Glucose (65-115) mg/dL Calculated Osmolal ity (285-295) mOsm/k g Lactate (0.5-2.2) mmol/L Calcium (8.5-10.5) mg/dL Total Bilirubin (0.15-1.2) mg/dL AST (0-40) U/L ALT (0-41) U/L Alkaline Phosphata se (40-130) IU/L Troponin T Baselin e (0-15) ng/L Total Protein (6.6-8.7) g/dL Albumin (3.5-5.2) g/dL Globulin (1.3-4.6) g/dL Lipase (13-60) U/L Urine Color Straw (Yellow) Urine Appearance Clear (CLEAR) Urine pH 6.5 (5-7) Ur Specific Gravit y 1.010 (1.005-1.030) Urine Protein Neg (Negative) Urine Glucose (UA) Norm (Normal) Urine Ketones Negative (Negative) Urine Blood Neg (Negative) Urine Nitrate Negative (Negative) Urine Bilirubin Neg (Negative) Urine Urobilinogen Norm (Negative) mg/dL Ur Leukocyte Paulina ase Negative (Negative) Urine Opiates Scre en (Negative) ng/mL Ur Barbiturates Sc reen (Negative) ng/mL Ur Phencyclidine S crn (Negative) ng/mL Ur Amphetamines Sc reen (Negative) ng/mL U Benzodiazepines Scrn (Negative) ng/mL Urine Cocaine Scre en (Negative) ng/mL U Marijuana (THC) Screen (Negative) ng/mL Ethyl Alcohol (0-10) mg/dL Discharge Plan Discharge Patient Disposition: Home Clinical Impression: Pancreatitis Condition: Stable Prescriptions: No Action albuterol sulfate 90 mcg/actuation Hfa Aerosol Inhaler 2 puff INHALATION Q4H PRN (Reason: Shortness Of Breath) RF: 0 acetaminophen [Tylenol Extra Strength] 500 mg Tablet 500 mg PO PRN RF: 0 promethazine 25 mg tablet 25 mg PO Q6H PRN (Reason: nausea and vomiting) Qty: 14 RF: 0 tramadol 50 mg tablet 50 mg PO Q8H PRN (Reason: pain) Qty: 10 RF: 0 ondansetron HCl [Zofran] 4 mg tablet 4 mg PO Q6H PRN (Reason: nausea and vomiting) Qty: 20 RF: 0 Depakote 500 mg PO BID RF: 0 Discharge Orders: Discharge ED (Routine); Ordered 12/21/20 Ordered By: Hudson Fournier Discharge Diet: Advance as tolerated Discharge Activity: Resume usual activity Patient Instructions: Pancreatitis (ED), Opioid Safety Activity Restrictions/Additional Instructions: You are suffering from acute pancreatitis of unknown cause. Please drink lots of fluids and if you are unable to eat and drink return to the ER at any time for further evaluation. Otherwise follow-up with your primary care physician in a few days to monitor improvement of your symptoms. Your celiac artery stenosis has slightly improved on this CAT scan but I have placed a case management consult to help you get in with Dr. Moreno the environmental control administrator to have it further evaluated. Coding Level of Care Code ED Csr Technician for [facility]
[2020-12-21 19:47] VITALS: BP 120/63; PULSE 68; RESP 16; TEMP 36.8
--- NOTE | 2020-12-23 15:07 | DCPLANNER ---
integrity manager had message to schedule a follow up appointment for patient with heart care. integrity manager called heart care, spoke with Emily, gave clinic patients information. A follow up appointment was scheduled for Thursday, January 07, 2021 at 2:[address] Moreno. integrity manager called phone number [phone], unable to speak with patient at this time, a voicemail was left for patient to return behavioral health case manager phone call.
--- NOTE | 2020-12-31 13:50 | DCPLANNER ---
Addendum entered by Edith Choudhury 01/01/21 15:53: assistant portfolio manager called heart care to cancel appointment, but was told that clinic would contact patient with appointment information. Clinic contacted patient and left a voicemail for patient to call heart care about appointment. Addendum entered by Edith Choudhury 01/01/21 14:36: assistant portfolio manager has not been able to reach patient at this time to inform him of the scheduled appointment. assistant portfolio manager called [facility] and cancelled the scheduled appointment. Original Note: assistant portfolio manager called patient at phone number [phone], unable to speak with patient at this time, a voicemail was left for patient to return employment evaluator/case manager phone call.
--- NOTE | 2021-02-06 15:24 | DCPLANNER ---
Patient had a follow up appointment scheduled for 01.07.21 with heart care - patient did not attend appointment.
== END 2020-12-21 20:01 | disposition home or self-care (01) ==
PROVIDERS: Nurse Practitioner Family; Emergency Provider Family Medicine
DX: K85.90 Acute pancreatitis without necrosis or infection, unspecified (principal)
CPT/HCPCS: 74174; 80053; 80306; 80307; 81003; 83605; 83690; 84484; 85025; 93005; 96360; 99284; J7030; Q9967

== ENCOUNTER 2023-11-05 14:20 | Emergency (ER) | payer BC, MEDICAID, SELFPAY ==
[2023-11-05 14:21] VITALS: BP 123/87; PULSE 80; RESP 16; O2SAT 98
--- NOTE | 2023-11-05 14:34 | ED_ITS ---
Documented by User: CLARI Garza 11/05/23 16:56 HPI - Seizure 2 General: Chief Complaint: Seizure Stated Complaint: seizure Time Seen by Provider: 11/05/23 14:23 Source: patient and other (detention staff) Mode of arrival: ambulatory Limitations: no limitations History of Present Illness: HPI Narrative: Patient is a 48-year-old male with a history of seizures here from detention after he experienced a seizure while incarcerated. According to other inmates who witnessed the event, patient was lying on his bed when he began having tonic- clonic like movements that lasted less than 30 seconds. Patient feels like his seizure was related to stress as he had court this morning. He also tells me he has not had his seizure medications over the past week or so. He tells me he takes Dilantin. He states he has a history of a ventriculoatrial shunt. States he has not seen a neurosurgeon or neurologist in many many years. MD complaint: seizure Onset (ago): hour(s) Description of Episode: loss of consciousness and tonic-clonic movement -: second(s) Witnessed: Yes - by Bystander (other inmates) Trauma: No Seizure History: Yes Place: [facility] Possible Precipitating Event: other ( stress ; hasn't had his seizure meds in a week) Associated symptoms: Reports other (headache); Deny chest pain, chills, fever(s) or malaise Treatments prior to arrival: none Review of Systems 2 Const: Denies: fever(s), chills, body aches, fatigue or malaise Card: Denies: chest pain Resp: Denies: dyspnea GI: Denies: abdominal pain, nausea or vomiting Musc: Denies: neck pain, back pain, extremity pain or joint pain Skin/Breast: Denies: rash Neuro: Reports: headache(s) and seizure-like activity; Denies: numbness in extremities, weakness in extremities or sensory changes PFSH ED 2 PFSH: Family History Mother CAD (coronary artery disease) Cancer Psychiatric illness Sister Cancer Psychiatric illness Denies family history of Diabetes Suicide Lung disease Hypertension Stroke Social History Smoking and tobacco/nicotine status: never used tobacco/nicotine Alcohol intake: never Substance/Drug Use: never Physical Exam 2 Const: COMMON NORMALS: no acute distress, patient oriented x3, no limitations, alert and well nourished GENERAL APPEARANCE: appears older than stated age ORIENTATION/CONSCIOUSNESS: Yes awake, Yes oriented to person, Yes oriented to place and Yes oriented to time HENMT: COMMON NORMALS: normocephalic and atraumatic HEAD & SCALP: normal to inspection, normocephalic and atraumatic FACE & SINUS: normal facial exam TEETH & GINGIVA: Yes caries and Yes poor dentition Eye: COMMON NORMALS: Equal, round and reactive pupils present and EOMs intact bilaterally GENERAL EYE: appearance normal, both eyes and all related structures and normal light reflex PUPIL: Yes Equal, round and reactive pupils present DIRECT OPHTHALMOSCOPY: Yes normal light reflex Neck/C-Spine: COMMON NORMALS: full ROM, no lymphadenopathy, supple and no meningeal signs Chest: COMMONS NORMALS: normal inspection of the chest Resp: COMMON NORMALS: normal respiratory effort and clear to auscultation bilaterally AUSCULTATION: clear to auscultation bilaterally Cardio: COMMON NORMALS: regular rate and regular rhythm RATE: regular rate RHYTHM: regular rhythm Extremity: COMMON NORMALS: normal to inspection GENERAL: Yes normal exam except as noted Neuro: LARS COMA SCALE: document GCS findings [place] coma scale eye opening: Spontaneous Lars coma scale verbal response: Orientated [place] coma scale motor response: Obey commands Lars coma scale total score: 15 COMMON NORMALS: patient oriented x3, CN's II-XII intact bilaterally, moves all extremities, no focal motor deficits, no sensory deficits noted and gait normal SENSORIUM/ORIENTATION: Yes alert, Yes oriented to person, Yes oriented to place and Yes oriented to time MENINGEAL SIGNS: Yes no meningeal signs Skin: COMMON NORMALS: no rashes or lesions noted GENERAL SKIN EXAM: no rashes or lesions noted Course 2 Vital Signs: Vital signs: Vital Signs Pulse Rate 80 11/05/23 14:21 Respiratory Rate 16 11/05/23 14:21 Blood Pressure 123/87 11/05/23 14:21 Pulse Oximetry 98 11/05/23 14:21 Oxygen Delivery Me thod Room Air 11/05/23 14:21 MDM - Seizure MDM Narrative Medical decision making narrative: Patient is a 48-year-old male with a known ventriculoatrial shunt and history of seizures that has not followed up with neurology or neurosurgery in almost a decade here for complaints of a seizure that happened while incarcerated. Patient states he normally takes Dilantin but has not taken this medication over the past week. Upon arrival to the ED he appears no acute distress. His blood work is unremarkable. Of his head showing mild to moderate ventriculomegaly with no dilatation of the fourth or third ventricles. There were no prior studies for comparison to evaluate for interval change thus recommended evaluation by physician following the BUSINESS MANAGEMENT MANAGER shunt catheter. As previously discussed, unfortunately patient has not had follow-up with anybody in quite some time. Symptoms seem more consistent with a medication noncompliance of his seizure medications versus shunt obstruction. Will refill his Dilantin and place case management referral to get him set up with neurosurgery/neurology. Lab Data 11/05/23 14:00 11/05/23 14:00 Labs: Radiology Impressions Imaging Shunt Series 11/05/23 14:37 IMPRESSION: [facility] shunt in satisfactory position as described. Laboratory Results WBC 6.47 10^3/uL (3.29-11.43) 11/05/23 14:00 RBC 4.44 10^6/uL (3.85-5.65) 11/05/23 14:00 Hgb 14.60 g/dL (11.27-16.99) 11/05/23 14:00 Hct 43.4 % (37-53) 11/05/23 14:00 MCV 97.7 fl (82-101) 11/05/23 14:00 MCH 32.9 pg (27-33) 11/05/23 14:00 MCHC 33.6 g/dL (30-55) 11/05/23 14:00 RDW 12.1 % (12.1-15.1) 11/05/23 14:00 Plt Count 202 10^3/cmm (157-399) 11/05/23 14:00 MPV 11.1 fL (7.4-10.4) H 11/05/23 14:00 Neut % (Auto) 58.6 % 11/05/23 14:00 Lymph % (Auto) 27.0 % 11/05/23 14:00 [place] % (Auto) 9.7 % 11/05/23 14:00 Eos % (Auto) 3.6 % 11/05/23 14:00 Baso % (Auto) 0.9 % 11/05/23 14:00 Neut # (Auto) 3.79 10^3/uL (1.8-7.7) 11/05/23 14:00 Lymph # (Auto) 1.8 10^3/uL (0.8-4.8) 11/05/23 14:00 [place] # (Auto) 0.6 10^3/uL (0.2-0.9) 11/05/23 14:00 Eos # (Auto) 0.2 10^3/uL (0.0-0.8) 11/05/23 14:00 Baso # (Auto) 0.1 10^3/uL (0.0-0.1) 11/05/23 14:00 Nucleated RBC % (auto) 0 % 11/05/23 14:00 Nucleated RBCs # 0.0 /100WBC 11/05/23 14:00 Sodium 139 mmol/L (136-145) 11/05/23 14:00 Potassium 4.5 mmol/L (3.5-5.1) 11/05/23 14:00 Chloride 101 mmol/L (98-107) 11/05/23 14:00 Carbon Dioxide 27 mmol/L (22-29) 11/05/23 14:00 Anion Gap 15.5 (5-19) 11/05/23 14:00 BUN 13 mg/dL (6-20) 11/05/23 14:00 Creatinine 0.8 mg/dL (0.7-1.2) 11/05/23 14:00 GFR Calculation 103.6 mL/min (90-130) 11/05/23 14:00 Glucose 101 mg/dL (65-115) 11/05/23 14:00 Calculated Osmolality 288 mOsm/kg (285-295) 11/05/23 14:00 Calcium 9.6 mg/dL (8.5-10.5) 11/05/23 14:00 Total Bilirubin 0.6 mg/dL (0.15-1.2) 11/05/23 14:00 AST 19 U/L (0-40) 11/05/23 14:00 ALT 10 U/L (0-41) 11/05/23 14:00 Alkaline Phosphatase 91 U/L (40-130) 11/05/23 14:00 Total Protein 8.3 g/dL (6.6-8.7) 11/05/23 14:00 Albumin 4.6 g/dL (3.5-5.2) 11/05/23 14:00 Globulin 3.7 g/dL (1.3-4.6) 11/05/23 14:00 All radiology interpretation(s) finalized by discharge Discharge Plan Discharge Patient Disposition: Home Clinical Impression: Seizure Condition: Stable Prescriptions: New phenytoin sodium extended 100 mg capsule 100 mg PO BID Qty: 20 0RF No Action albuterol sulfate 90 mcg/actuation Hfa Aerosol Inhaler 2 puff INHALATION Q4H PRN (Reason: Shortness Of Breath) Dilantin Extended 100 mg Capsule 100 mg PO BID metoprolol tartrate 25 mg Tablet 25 mg PO BID Discharge Orders: Discharge ED (Routine); Ordered 11/05/23 Ordered By: Bob Mccrary Discharge Diet: Usual diet Discharge Activity: Increase activity as tolerated Patient Instructions: Epilepsy (DC), Seizures Activity Restrictions/Additional Instructions: Continue Dilantin as prescribed. Return with any new or worsening symptoms. Sign Out Sign Out Data: Patient Sign Out occurred on 11/05/23 at 17:05. Patient's care was discussed, and care was transferred from CLARI Garza to CLARI Linda. Coding Level of Care Code ED Corporate Logistics Manager for Chg Fwd Documented by User: CLARI Linda 11/05/23 17:34 HPI - Seizure 2 General: Chief Complaint: Seizure Stated Complaint: seizure Time Seen by Provider: 11/05/23 14:23 PFSH ED 2 PFSH: Family History Mother CAD (coronary artery disease) Cancer Psychiatric illness Sister Cancer Psychiatric illness Denies family history of Diabetes Suicide Lung disease Hypertension Stroke Social History Smoking and tobacco/nicotine status: never used tobacco/nicotine Alcohol intake: never Substance/Drug Use: never Physical Exam 2 Neuro: LARS COMA SCALE: document GCS findings Lars coma scale total score: 15 Course 2 Vital Signs: Vital signs: Vital Signs Pulse Rate 80 11/05/23 14:21 Respiratory Rate 16 11/05/23 14:21 Blood Pressure 123/87 11/05/23 14:21 Pulse Oximetry 98 11/05/23 14:21 Oxygen Delivery Me thod Room Air 11/05/23 14:21 MDM - Seizure Lab Data 11/05/23 14:00 11/05/23 14:00 Labs: Radiology Impressions Imaging Shunt Series 11/05/23 14:37 IMPRESSION: [facility] shunt in satisfactory position as described. Laboratory Results WBC 6.47 10^3/uL (3.29-11.43) 11/05/23 14:00 RBC 4.44 10^6/uL (3.85-5.65) 11/05/23 14:00 Hgb 14.60 g/dL (11.27-16.99) 11/05/23 14:00 Hct 43.4 % (37-53) 11/05/23 14:00 MCV 97.7 fl (82-101) 11/05/23 14:00 MCH 32.9 pg (27-33) 11/05/23 14:00 MCHC 33.6 g/dL (30-55) 11/05/23 14:00 RDW 12.1 % (12.1-15.1) 11/05/23 14:00 Plt Count 202 10^3/cmm (157-399) 11/05/23 14:00 MPV 11.1 fL (7.4-10.4) H 11/05/23 14:00 Neut % (Auto) 58.6 % 11/05/23 14:00 Lymph % (Auto) 27.0 % 11/05/23 14:00 [place] % (Auto) 9.7 % 11/05/23 14:00 Eos % (Auto) 3.6 % 11/05/23 14:00 Baso % (Auto) 0.9 % 11/05/23 14:00 Neut # (Auto) 3.79 10^3/uL (1.8-7.7) 11/05/23 14:00 Lymph # (Auto) 1.8 10^3/uL (0.8-4.8) 11/05/23 14:00 [place] # (Auto) 0.6 10^3/uL (0.2-0.9) 11/05/23 14:00 Eos # (Auto) 0.2 10^3/uL (0.0-0.8) 11/05/23 14:00 Baso # (Auto) 0.1 10^3/uL (0.0-0.1) 11/05/23 14:00 Nucleated RBC % (auto) 0 % 11/05/23 14:00 Nucleated RBCs # 0.0 /100WBC 11/05/23 14:00 Sodium 139 mmol/L (136-145) 11/05/23 14:00 Potassium 4.5 mmol/L (3.5-5.1) 11/05/23 14:00 Chloride 101 mmol/L (98-107) 11/05/23 14:00 Carbon Dioxide 27 mmol/L (22-29) 11/05/23 14:00 Anion Gap 15.5 (5-19) 11/05/23 14:00 BUN 13 mg/dL (6-20) 11/05/23 14:00 Creatinine 0.8 mg/dL (0.7-1.2) 11/05/23 14:00 GFR Calculation 103.6 mL/min (90-130) 11/05/23 14:00 Glucose 101 mg/dL (65-115) 11/05/23 14:00 Calculated Osmolality 288 mOsm/kg (285-295) 11/05/23 14:00 Calcium 9.6 mg/dL (8.5-10.5) 11/05/23 14:00 Total Bilirubin 0.6 mg/dL (0.15-1.2) 11/05/23 14:00 AST 19 U/L (0-40) 11/05/23 14:00 ALT 10 U/L (0-41) 11/05/23 14:00 Alkaline Phosphatase 91 U/L (40-130) 11/05/23 14:00 Total Protein 8.3 g/dL (6.6-8.7) 11/05/23 14:00 Albumin 4.6 g/dL (3.5-5.2) 11/05/23 14:00 Globulin 3.7 g/dL (1.3-4.6) 11/05/23 14:00 Discharge Plan Discharge Patient Disposition: Home Clinical Impression: Seizure Condition: Stable Prescriptions: New phenytoin sodium extended 100 mg capsule 100 mg PO BID Qty: 20 0RF No Action albuterol sulfate 90 mcg/actuation Hfa Aerosol Inhaler 2 puff INHALATION Q4H PRN (Reason: Shortness Of Breath) Dilantin Extended 100 mg Capsule 100 mg PO BID metoprolol tartrate 25 mg Tablet 25 mg PO BID Discharge Orders: Discharge ED (Routine); Ordered 11/05/23 Ordered By: Bob Mccrary Discharge Diet: Usual diet Discharge Activity: Increase activity as tolerated Patient Instructions: Epilepsy (DC), Seizures Activity Restrictions/Additional Instructions: Continue Dilantin as prescribed. Return with any new or worsening symptoms. Sign Out Sign Out Data: Patient Sign Out occurred on 11/05/23 at 17:05. Patient's care was discussed, and care was transferred from CLARI Garza to CLARI Linda. Coding Level of Care Code ED Corporate Logistics Manager for Fei Ku
--- NOTE | 2023-11-05 14:37 | XRR_ITS ---
PROCEDURE INFORMATION: Exam: XR Shunt Series With 4 XR Procedures Exam date and time: 11/05/2023 3:32 PM Age: 48 years old Clinical indication: Other: Seizure; Prior surgery; Surgery date: 6+ months; Surgery type: Shunt; Additional info: Ventriculoatrial shunt; Seizure TECHNIQUE: Imaging protocol: XR Shunt Series was performed with skull less than 4 views, neck 1 view, chest 1 view, and abdomen 1 view. COMPARISON: No relevant prior studies available. FINDINGS: Tubes, catheters and devices: Ventriculoatrial catheter is present. Catheter is seen on the left. The catheter is seen coursing through the neck and upper chest with the tip terminating in the right atrium. No kinking. No breakage. Sinuses: Visualized paranasal sinuses are well aerated. Lungs: No consolidations. Bones/joints: Normal. No fracture. No dislocation. Soft tissues: Unremarkable. XR/XR shunt series IMPRESSION: VA shunt in satisfactory position as described.
--- NOTE | 2023-11-05 14:37 | CT_ITS ---
WS: [id number] CT HEAD NONCONTRAST HISTORY: seizure; ventriculoatrial shunt TECHNIQUE: Contiguous axial imaging performed through the brain in 2.5 mm imaging. Bone and soft tiss ue windows. Sagittal and coronal reformats reviewed. All CT scans at [facility] use at least one of these dose optimization techniques: automated exposure control; mA and/or kV adjustment per pa tient size (includes targeted exams where dose is matched to clinical indication); or iterative recon struction. DLP: 1104.70 mGy.cm COMPARISON: None available. LEFT parietal VISITING TEACHER shunt catheter terminates in the anterior LEFT ventricle near the midline. No prior studies for comparison. There is no significant volume loss within the brain. There is mild to modera te dilatation of the ventricles. The corpus callosum may be absent. No atrophy or prior infarcts or herniation. Ventricles: Ventriculomegaly. Lateral ventricles are mildly dilated. No dilatation of the fourth vent ricle or third ventricle. Paranasal sinuses: Mild mucoperiosteal thickening in the ethmoid sinuses. Mastoid air cells: Well pneumatized. Calvarium and scalp: LEFT parietal warren hole with VISITING TEACHER shunt catheter. IMPRESSION: 1. Existing LEFT parietal VISITING TEACHER shunt catheter with tip terminating in the anterior LEFT lateral ventri rito. 2. There is mild to moderate ventriculomegaly. No dilatation of the fourth ventricle or third ventri rito. No prior studies for comparison to evaluate for interval change. Recommend evaluation by physici an following the VISITING TEACHER shunt catheter.
[2023-11-05] MEDS: phenytoin 1,000 MG in sodium chloride 0.9% (100 ml) 100 ML, non-DEHP filter tubing onc ... 270 MG IV (15:00)
--- NOTE | 2023-11-05 15:06 | PC.PHAR ---
Addendum entered by Lidia Taylor 11/05/23 15:10: PER JOSE GREEN TO PUT THE MEDS IN PT HAS VERBALLY GIVEN TO US. Original Note: NO MEDS FILLED FOR THIS PT IN ANY OF THE [facility]. PT STATES CAME FROM [facility] IN [phone]. THEY ARE UNABLE TO LOCATE ANY RECORDS AFTER PT LEAVES THE FACILITY. PT STATES TAKES DILANTIN 100 MG TWICE DAILY AND METOPROLOL TARTRATE 25MG TWICE DAILY AND HAS USED AN ALBUTEROL INHALER IN THE PAST. 11/05/23
[2023-11-05 15:25] LABS: Basophils # 0.1 10^3/uL (0.0-0.1); Basophils % 0.9 %; Eosinophils # 0.2 10^3/uL (0.0-0.8); Eosinophils % 3.6 %; Hematocrit 43.4 % (37-53); Lymphocytes # 1.8 10^3/uL (0.8-4.8); Mean Corpuscular HGB Conc 33.6 g/dL (30-55); Mean Corpuscular Hemoglobin 32.9 pg (27-33); Mean Corpuscular Volume 97.7 fl (82-101); Mean Platelet Volume 11.1 fL (7.4-10.4); Monocytes # 0.6 10^3/uL (0.2-0.9); Monocytes % 9.7 %; Neutrophils # 3.79 10^3/uL (1.8-7.7); Neutrophils % 58.6 %; Nucleated Red Blood Cells % 0 %; Platelet Count 202 10^3/cmm (157-399); Red Blood Count 4.44 10^6/uL (3.85-5.65); Red Cell Distribution Width 12.1 % (12.1-15.1); White Blood Count 6.47 10^3/uL (3.29-11.43)
[2023-11-05 15:35] LABS: Alanine Aminotransferase 10 U/L (0-41); Albumin Level 4.6 g/dL (3.5-5.2); Alkaline Phosphatase 91 U/L (40-130); Aspartate Amino Transferase 19 U/L (0-40); Blood Urea Nitrogen 13 mg/dL (6-20); Calcium 9.6 mg/dL (8.5-10.5); Carbon Dioxide 27 mmol/L (22-29); Chloride 101 mmol/L (98-107); Globulin 3.7 g/dL (1.3-4.6); Glomerular Filtration Rate 103.6 mL/min (90-130); Glucose 101 mg/dL (65-115); Osmolality Calculated 288 mOsm/kg (285-295); Sodium 139 mmol/L (136-145); Total Bilirubin 0.6 mg/dL (0.15-1.2); Total Protein 8.3 g/dL (6.6-8.7)
[2023-11-05 15:43] LABS: Anion Gap 15.5 (5-19); Potassium 4.5 mmol/L (3.5-5.1)
--- NOTE | 2023-11-08 09:16 | DCPLANNER ---
A message was sent to neurology on 11/08/23 at 0916. [facility] to contact patient
== END 2023-11-05 18:00 | disposition home or self-care (01) ==
PROVIDERS: Physician Assistant; Emergency Provider Physician Assistant
DX: R56.9 Unspecified convulsions (principal)
CPT/HCPCS: 70250; 70450; 71046; 72040; 74019; 80053; 85025; 96365; 96366; 99285; J1165

== ENCOUNTER 2023-11-06 21:27 | Emergency (ER) | payer BC, MEDICAID, SELFPAY ==
[2023-11-06 21:38] VITALS: BP 130/87; PULSE 98; RESP 15; TEMP 36.6; O2SAT 97; BMI 16.2
--- NOTE | 2023-11-06 21:38 | CTR_ITS ---
PROCEDURE INFORMATION: Exam: CT Cervical Spine Without Contrast Exam date and time: 11/06/2023 9:56 PM Age: 48 years old Clinical indication: Injury or trauma; Blunt trauma; Patient HX: EMS arrival for seizure with fall. TECHNIQUE: Imaging protocol: Computed tomography of the cervical spine without contrast. Radiation optimization: All CT scans at this facility use at least one of these dose optimization techniques: automated exposure control; mA and/or kV adjustment per patient size (includes targeted exams where dose is matched to clinical indication); or iterative reconstruction. COMPARISON: CR XR shunt series 11/05/2023 3:32 PM RADIATION DOSE METRICS: Total DLP (mGy-cm): 411.67 FINDINGS: Bones/joints: No acute fracture. Normal alignment. No significant disc bulge or herniation. No severe spinal canal stenosis. No significant neural foraminal narrowing. Lungs: Lung apices are normal. Soft tissues: Left-sided shunt tubing. CT/CT cervical spin wo con* [id number] IMPRESSION: No acute findings.
--- NOTE | 2023-11-06 21:38 | CTR_ITS ---
PROCEDURE INFORMATION: Exam: CT Head Without Contrast Exam date and time: 11/06/2023 9:53 PM Age: 48 years old Clinical indication: Injury or trauma; Fall; Blunt trauma (contusions or hematomas); Other: Seizure; Prior surgery; Surgery date: 6+ months; Surgery type: Clinical Nutritionist shunt; Patient HX: =; Additional info: Trauma/seizure TECHNIQUE: Imaging protocol: Computed tomography of the head without contrast. Radiation optimization: All CT scans at this facility use at least one of these dose optimization techniques: automated exposure control; mA and/or kV adjustment per patient size (includes targeted exams where dose is matched to clinical indication); or iterative reconstruction. COMPARISON: CT head wo con* [id number] 11/05/2023 3:12 PM RADIATION DOSE METRICS: Total DLP (mGy-cm): 296 FINDINGS: Brain: No focal hemorrhage or midline shift is identified. Left parietal shunt again seen with tip at the septum pellucidum area. Ventricles remain mildly to moderately enlarged, but there size has improved from the prior day. No hemorrhage. There is a posterior fossa dejan cisterna magna or arachnoid cyst noted. Cerebral ventricles: No evidence of acute hydrocephalus. Paranasal sinuses: At least mild right ethmoid sinus disease. Mastoid air cells: Visualized mastoid air cells are well aerated. Bones/joints: No displaced skull fracture is noted. Soft tissues: Unremarkable. CT/CT head wo con* [id number] IMPRESSION: Exam compared to the prior day. From that time, the ventricles remain large but this size has definitely improved. No hemorrhage or other change.
--- NOTE | 2023-11-06 21:39 | W.ED.SEIZURE ---
HPI - Seizure General: Chief Complaint: Seizure Stated Complaint: seizures Time Seen by Provider: 11/06/23 21:30 Source: patient and other (long term staff) Mode of arrival: EMS Limitations: no limitations History of Present Illness: HPI Narrative: Patient is a 48-year-old male with a history of seizures here from long term after he experienced a seizure while incarcerated. Patient was just seen here two days ago for same incident. At that visit he had not been taking his Dilantin over the past week. He was given a loading dose here and sent with a prescription. According to long term staff, they have yet to fill prescription thus patient has not had this medication over the past two days. According to long term staff today they found patient in the bathroom seizing on the floor. Patient states before seizure he got an aura of tunnel vision and a garlic taste in his mouth. Prison staff feel he may have struck his head on the bathroom sink. He reports his neck feels sore. He complains of a headache which he states is common post-ictal. He states he had not had much issues with headaches since his discharge here two days ago. Patient has a history of a ventriculoatrial shunt. States he has not seen a neurosurgeon or neurologist in many many years. MD complaint: seizure Onset (ago): hour(s) Description of Episode: loss of consciousness, tonic-clonic movement and post-event confusion Duration of episode: 3 -: minutes(s) Witnessed: Yes - by Other (long term staff) Trauma: Yes (presumably) Seizure History: Yes Place: long term Possible Precipitating Event: other (not having his seizure medications) Associated symptoms: Reports confusion (following the seizure); Deny chest pain, chills, fever(s) or malaise Treatments prior to arrival: none Review of Systems Const: Denies: fever(s), chills, body aches, fatigue or malaise Eyes: Reports: blurry vision (tunnel vision before seizure); Denies: photophobia, floaters or seeing flashes Card: Denies: chest pain, palpitations or lightheadedness Resp: Denies: dyspnea GI: Denies: abdominal pain, nausea or vomiting Musc: Reports: neck pain; Denies: back pain, extremity pain or joint pain Neuro: Reports: headache(s), confusion (following the seizure) and seizure-like activity; Denies: numbness in extremities, weakness in extremities, sensory changes, lack of coordination, difficulty walking, frequent falls, dizziness, vertigo, Slurred speech present or difficulty communicating thoughts PFSH ED PFSH: Family History Mother CAD (coronary artery disease) Cancer Psychiatric illness Sister Cancer Psychiatric illness Denies family history of Diabetes Suicide Lung disease Hypertension Stroke Social History Smoking and tobacco/nicotine status: never used tobacco/nicotine Alcohol intake: never Substance/Drug Use: never Physical Exam Const: COMMON NORMALS: patient oriented x3, no limitations, alert and well nourished GENERAL APPEARANCE: cooperative ORIENTATION/CONSCIOUSNESS: Yes awake, Yes oriented to person, Yes oriented to place and Yes oriented to time OTHER: appears slightly post-ictal with cognitive slowing although he does answer all questions appropriately HENMT: COMMON NORMALS: normocephalic and atraumatic HEAD & SCALP: normal to inspection, normocephalic and atraumatic FACE & SINUS: normal facial exam MOUTH: other (no intraoral trauma) Eye: COMMON NORMALS: Equal, round and reactive pupils present and EOMs intact bilaterally GENERAL EYE: appearance normal, both eyes and all related structures and normal light reflex PUPIL: Yes Equal, round and reactive pupils present DIRECT OPHTHALMOSCOPY: Yes normal light reflex Resp: COMMON NORMALS: normal respiratory effort and clear to auscultation bilaterally AUSCULTATION: clear to auscultation bilaterally Cardio: COMMON NORMALS: regular rate and regular rhythm RATE: regular rate RHYTHM: regular rhythm Back/Pelvis: COMMON NORMALS: thoracic and lumbar spine normal to inspection Extremity: GENERAL: Yes normal exam except as noted Neuro: LARS COMA SCALE: document GCS findings [place] coma scale eye opening: Spontaneous Lars coma scale verbal response: Orientated [place] coma scale motor response: Obey commands Lars coma scale total score: 15 COMMON NORMALS: patient oriented x3, CN's II-XII intact bilaterally, moves all extremities, no focal motor deficits and no sensory deficits noted SENSORIUM/ORIENTATION: Yes alert, Yes oriented to person, Yes oriented to place and Yes oriented to time Skin: TRAUMA: no lacerations or abrasions Course Vital Signs: Vital signs: Vital Signs Temperature 98 F 11/06/23 21:38 Pulse Rate 89 11/06/23 23:07 Respiratory Rate 16 11/06/23 23:07 Blood Pressure 113/79 11/06/23 23:07 Pulse Oximetry 98 11/06/23 23:07 Oxygen Delivery Me thod Room Air 11/06/23 21:38 MDM - Seizure MDM Narrative Medical decision making narrative: Patient here from long term for evaluation of another seizure. He was here 2 days ago for same. At that visit he had been without his antiseizure medication/Dilantin for the past week. He was given a loading dose of Dilantin here in the emergency department. CT scan at that visit showed mild to moderate ventriculomegaly with no dilatation of the fourth ventricle or third ventricle. There were no prior studies for comparison to evaluate for interval change. Radiologist recommended evaluation by physician following his [facility] shunt however patient has not seen a neurosurgeon or had any form of follow-up in over a decade. XR shunt series was normal. Seizure thought to be related to not having his Dilantin. He was given a prescription for this upon discharge however at the long term did not fill it thus he has not had it over the past 2 days most likely contributing to his seizure today. Attempted to repeat IV Dilantin loading dose however we were not able to get a hold of inpatient pharmacist despite multiple attempts thus this could not be completed. He was given PO dose as well as IV Ativan. CTs re-obtained today based on history of trauma and head CT is actually improved when compared to 2 days ago. Again I have very low suspicion that his seizures are related to shunt obstruction or infection. He has had headaches post-ictal but otherwise has been headache free. No lethargy, AMS, fevers, or vomiting. Will go ahead and a prescription another prescription for his Dilantin. Prison staff was also handed a hard prescription and recommend they fill this medication tomorrow and started immediately. Patient was given PO doses of Dilantin for tomorrow just in case long term has any trouble filling it over the weekend. Lab Data 11/06/23 21:40 11/06/23 21:40 Labs: Radiology Impressions Cervical Spine CT 11/06/23 21:38 IMPRESSION: No acute findings. Head CT 11/06/23 21:38 IMPRESSION: Exam compared to the prior day. From that time, the ventricles remain large but this size has definitely improved. No hemorrhage or other change. Laboratory Results WBC 7.11 10^3/uL (3.29-11.43) 11/06/23 21:40 RBC 4.17 10^6/uL (3.85-5.65) 11/06/23 21:40 Hgb 13.60 g/dL (11.27-16.99) 11/06/23 21:40 Hct 40.9 % (37-53) 11/06/23 21:40 MCV 98.1 fl (82-101) 11/06/23 21:40 MCH 32.6 pg (27-33) 11/06/23 21: MCHC 33.3 g/dL (30-55) 11/06/23 21: RDW 12.1 % (12.1-15.1) 11/06/23 21: Plt Count 180 10^3/cmm (157-399) 11/06/23 21:40 MPV 10.4 fL (7.4-10.4) 11/06/23 21:40 Neut % (Auto) 48.4 % 11/06/23 21:40 Lymph % (Auto) 30.7 % 11/06/23 21:40 [place] % (Auto) 14.3 % 11/06/23 21:40 Eos % (Auto) 5.3 % 11/06/23 21:40 Baso % (Auto) 1.0 % 11/06/23:40 Neut # (Auto) 3.44 10^3/uL (1.8-7.7) 11/06/23:40 Lymph # (Auto) 2.2 10^3/uL (0.8-4.8) 11/06/23 21:40 [place] # (Auto) 1.0 10^3/uL (0.2-0.9) H 11/06/23 21:40 Eos # (Auto) 0.4 10^3/uL (0.0-0.8) 11/06/23 21:40 Baso # (Auto) 0.1 10^3/uL (0.0-0.1) 11/06/23:40 Nucleated RBC % (auto) 0 % 11/06/23: Nucleated RBCs # 0.0 /100WBC 03/16/24 21:40 Sodium 138 mmol/L (136-145) 11/06/23 21:40 Potassium 4.2 mmol/L (3.5-5.1) 11/06/23 21:40 Chloride 100 mmol/L (98-107) 11/06/23 21:40 Carbon Dioxide 25 mmol/L (22-29) 11/06/23 21:40 Anion Gap 17.2 (5-19) 11/06/23 21:40 BUN 14 mg/dL (6-20) 11/06/23 21:40 Creatinine 0.8 mg/dL (0.7-1.2) 11/06/23 21:40 GFR Calculation 103.6 mL/min (90-130) 11/06/23 21:40 Glucose 95 mg/dL (65-115) 11/06/23 21:40 Calculated Osmolality 286 mOsm/kg (285-295) 11/06/23 21:40 Calcium 9.3 mg/dL (8.5-10.5) 11/06/23 21:40 Total Bilirubin 0.4 mg/dL (0.15-1.2) 11/06/23 21:40 AST 17 U/L (0-40) 11/06/23 21:40 ALT 12 U/L (0-41) 11/06/23 21:40 Alkaline Phosphatase 94 U/L (40-130) 11/06/23 21:40 Total Protein 7.6 g/dL (6.6-8.7) 11/06/23 21:40 Albumin 4.3 g/dL (3.5-5.2) 11/06/23 21:40 Globulin 3.3 g/dL (1.3-4.6) 11/06/23 21:40 All radiology interpretation(s) finalized by discharge Discharge Plan Discharge Patient Disposition: Home Clinical Impression: Status post ventriculoatrial shunt placement, Seizure, Non compliance w medication regimen Condition: Stable Prescriptions: Continued phenytoin sodium extended 100 mg capsule 100 mg PO BID Qty: 60 0RF No Action albuterol sulfate 90 mcg/actuation Hfa Aerosol Inhaler 2 puff INHALATION Q4H PRN (Reason: Shortness Of Breath) Dilantin Extended 100 mg Capsule 100 mg PO BID metoprolol tartrate 25 mg Tablet 25 mg PO BID Discharge Orders: Discharge ED (Routine); Ordered 11/06/23 Ordered By: Genet Parson Patient Instructions: Epilepsy (DC), Seizures Activity Restrictions/Additional Instructions: Patient has again been E scripted his Dilantin that he needs for his seizures. Prison staff has also been provided a hard prescription for this medication. It is imperative that long term staff fill this medication and start dispensing it to patient-otherwise he is going to continue to seize. On your last visit I did refer you to neurology and neurosurgery so case management should be working on setting you up with these appointments. You need to return to the emergency department for further seizures, severe headache, severe lethargy or tiredness, repetitive episodes of vomiting, fevers, or any altered mental status. Coding Level of Care Code ED Wharf Tally Clerk for [facility]
[2023-11-06 21:57] LABS: Basophils # 0.1 10^3/uL (0.0-0.1); Eosinophils # 0.4 10^3/uL (0.0-0.8); Eosinophils % 5.3 %; Hematocrit 40.9 % (37-53); Lymphocytes # 2.2 10^3/uL (0.8-4.8); Lymphocytes % 30.7 %; Mean Corpuscular HGB Conc 33.3 g/dL (30-55); Mean Corpuscular Hemoglobin 32.6 pg (27-33); Mean Corpuscular Volume 98.1 fl (82-101); Mean Platelet Volume 10.4 fL (7.4-10.4); Monocytes % 14.3 %; Neutrophils # 3.44 10^3/uL (1.8-7.7); Neutrophils % 48.4 %; Nucleated Red Blood Cells % 0 %; Platelet Count 180 10^3/cmm (157-399); Red Blood Count 4.17 10^6/uL (3.85-5.65); Red Cell Distribution Width 12.1 % (12.1-15.1); White Blood Count 7.11 10^3/uL (3.29-11.43)
[2023-11-06 22:09] VITALS: BP 122/77; PULSE 84; RESP 16; O2SAT 97
[2023-11-06 22:23] LABS: Alanine Aminotransferase 12 U/L (0-41); Albumin Level 4.3 g/dL (3.5-5.2); Alkaline Phosphatase 94 U/L (40-130); Anion Gap 17.2 (5-19); Aspartate Amino Transferase 17 U/L (0-40); Blood Urea Nitrogen 14 mg/dL (6-20); Calcium 9.3 mg/dL (8.5-10.5); Carbon Dioxide 25 mmol/L (22-29); Chloride 100 mmol/L (98-107); Creatinine Clr Calc Pharmacy 87.8834; Globulin 3.3 g/dL (1.3-4.6); Glomerular Filtration Rate 103.6 mL/min (90-130); Glucose 95 mg/dL (65-115); Osmolality Calculated 286 mOsm/kg (285-295); Potassium 4.2 mmol/L (3.5-5.1); Sodium 138 mmol/L (136-145); Total Bilirubin 0.4 mg/dL (0.15-1.2); Total Protein 7.6 g/dL (6.6-8.7)
[2023-11-06] MEDS: phenytoin ER 100 mg Capsule PO (22:38)
[2023-11-06] MEDS: LORazepam 2 mg/mL INJ 10 mL MDV 1 MG IV (23:05)
[2023-11-06 23:07] VITALS: BP 113/79; PULSE 89; RESP 16; O2SAT 98
[2023-11-06] MEDS: phenytoin ER 100 mg Capsule 200 MG PO (23:45)
[2023-11-06 23:49] VITALS: BP 113/79; PULSE 89; RESP 16; TEMP 36.6; O2SAT 98
== END 2023-11-07 00:30 | disposition home or self-care (01) ==
PROVIDERS: Emergency Provider Physician Assistant
DX: R56.9 Unspecified convulsions (principal); Z91.148 Patient's other noncompliance with medication regimen for other reason; Z98.2 Presence of cerebrospinal fluid drainage device
CPT/HCPCS: 36415; 70450; 72125; 80053; 85025; 96374; 99285; J2060

== ENCOUNTER 2023-11-07 14:25 | Emergency (ER) | payer BC, MEDICAID, SELFPAY ==
[2023-11-07 14:26] VITALS: BP 122/83; PULSE 92; RESP 16; TEMP 37; O2SAT 98
--- NOTE | 2023-11-07 14:31 | ED_ITS ---
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 Patient's been incarcerated over the last week he has been noncompliant with his seizure meds patient had a witnessed seizure today at skilled nursing this is his third day being here. He just started getting his seizure meds there this morning had his first dose there this morning. He denies any headache currently he is awake answering all my questions appropriately. Denies hitting his head Seizure History: Yes Associated symptoms: Deny chest pain, chills or fever(s) Review of Systems 2 Const: Denies: fever(s), chills, body aches or change in appetite ENMT: Denies: throat pain or dental pain Card: Denies: chest pain Resp: Denies: dyspnea GI: Denies: abdominal pain, nausea, vomiting or diarrhea Musc: Denies: neck pain or back pain Skin/Breast: Denies: rash Neuro: Reports: seizure-like activity; Denies: headache(s) PFSH ED 2 PFSH: Family History Mother CAD (coronary artery disease) Cancer Psychiatric illness Sister Cancer Psychiatric illness Denies family history of Diabetes Suicide Lung disease Hypertension Stroke Social History Smoking and tobacco/nicotine status: never used tobacco/nicotine Alcohol intake: never Substance/Drug Use: never Physical Exam 2 Const: COMMON NORMALS: no acute distress, patient oriented x3 and healthy appearing HENMT: COMMON NORMALS: normocephalic and atraumatic HEAD & SCALP: n ormocephalic and atraumatic Eye: COMMON NORMALS: Equal, round and reactive pupils present and EOMs intact bilaterally PUPIL: Yes Equal, round and reactive pupils present Neck/C-Spine: COMMON NORMALS: full ROM and supple Chest: COMMONS NORMALS: normal inspection of the chest and normal palpation of entire chest wall Resp: COMMON NORMALS: normal respiratory effort, No retractions, No use of accessory muscles and clear to auscultation bilaterally AUSCULTATION: clear to auscultation bilaterally Cardio: COMMON NORMALS: regular rate, regular rhythm and No murmurs present (Cardio) RATE: regular rate RHYTHM: regular rhythm Extremity: COMMON NORMALS: normal to inspection and full ROM Neuro: COMMON NORMALS: patient oriented x3, moves all extremities and no focal motor deficits Psych: COMMON NORMALS: mental status grossly normal, Normal thought process present and cooperative THOUGHT PROCESS: Normal thought process present Skin: COMMON NORMALS: no rashes or lesions noted and no wounds GENERAL SKIN EXAM: no rashes or lesions noted Course 2 Vital Signs: Vital signs: Vital Signs Temperature 98.6 F 11/07/23 14:26 Pulse Rate 92 11/07/23 15:03 Respiratory Rate 16 11/07/23 15:03 Blood Pressure 117/92 11/07/23 15:03 Pulse Oximetry 96 11/07/23 15:03 Oxygen Delivery Me thod Room Air 11/07/23 15:03 MDM - Seizure MDM Narrative Medical decision making narrative: Patient presents here with seizure patient had multiple seizures recently like due to noncompliance did load him with Dilantin in the skilled nursing and started his Dilantin back as well CT yesterday showed improvement I do not believe this is from his shunt. He had no fever he feels improved here he is stable for discharge back to skilled nursing Lab Data 11/07/23 14:14 11/07/23 14:14 Labs: Laboratory Results WBC 5.00 10^3/uL (3.29-11.43) 11/07/23 14:14 RBC 4.35 10^6/uL (3.85-5.65) 11/07/23 14:14 Hgb 14.20 g/dL (11.27-16.99) 11/07/23 14:14 Hct 43.7 % (37-53) 11/07/23 14:14 MCV 100.5 fl (82-101) 11/07/23 14:14 MCH 32.6 pg (27-33) 11/07/23 14:14 MCHC 32.5 g/dL (30-55) 11/07/23 14:14 RDW 12.0 % (12.1-15.1) L 11/07/23 14:14 Plt Count 191 10^3/cmm (157-399) 11/07/23 14:14 MPV 10.8 fL (7.4-10.4) H 11/07/23 14:14 Neut % (Auto) 45.8 % 11/07/23 14:14 Lymph % (Auto) 31.8 % 11/07/23 14:14 [place] % (Auto) 12.8 % 11/07/23 14:14 Eos % (Auto) 8.0 % 11/07/23 14:14 Baso % (Auto) 1.4 % 11/07/23 14:14 Neut # (Auto) 2.29 10^3/uL (1.8-7.7) 11/07/23 14:14 Lymph # (Auto) 1.6 10^3/uL (0.8-4.8) 11/07/23 14:14 [place] # (Auto) 0.6 10^3/uL (0.2-0.9) 11/07/23 14:14 Eos # (Auto) 0.4 10^3/uL (0.0-0.8) 11/07/23 14:14 Baso # (Auto) 0.1 10^3/uL (0.0-0.1) 11/07/23 14:14 Nucleated RBC % (auto) 0 % 11/07/23 14:14 Nucleated RBCs # 0.0 /100WBC 11/07/23 14:14 Sodium 137 mmol/L (136-145) 11/07/23 14:14 Potassium 4.1 mmol/L (3.5-5.1) 11/07/23 14:14 Chloride 96 mmol/L (98-107) L 11/07/23 14:14 Carbon Dioxide 24 mmol/L (22-29) 11/07/23 14:14 Anion Gap 21.1 (5-19) H 11/07/23 14:14 BUN 12 mg/dL (6-20) 11/07/23 14:14 Creatinine 0.8 mg/dL (0.7-1.2) 11/07/23 14:14 GFR Calculation 103.6 mL/min (90-130) 11/07/23 14:14 Glucose 93 mg/dL (65-115) 11/07/23 14:14 Calculated Osmolality 283 mOsm/kg (285-295) L 11/07/23 14:14 Calcium 9.2 mg/dL (8.5-10.5) 11/07/23 14:14 Phenytoin 15.2 ug/mL (10-20) 11/07/23 14:14 No radiology studies performed this visit Discharge Plan Discharge Patient Disposition: Home Clinical Impression: Seizure Condition: Stable Prescriptions: No Action albuterol sulfate 90 mcg/actuation Hfa Aerosol Inhaler 2 puff INHALATION Q4H PRN (Reason: Shortness Of Breath) phenytoin sodium extended 100 mg capsule 100 mg PO BID Qty: 60 0RF phenytoin sodium extended [Dilantin Extended] 100 mg Capsule 100 mg PO BID metoprolol tartrate 25 mg Tablet 25 mg PO BID Discharge Orders: Discharge ED (Routine); Ordered 11/07/23 Ordered By: Cody Amaya Discharge Diet: Advance as tolerated Discharge Activity: Resume usual activity Patient Instructions: Generalized Tonic Clonic Seizures (ED) Coding Level of Care Code ED Casino Cashier Manager for [facility]
[2023-11-07] MEDS: phenytoin 1,000 MG in sodium chloride 0.9% (100 ml) 100 ML, non-DEHP filter tubing onc ... 270 MG IV (14:39)
[2023-11-07 14:50] LABS: Basophils # 0.1 10^3/uL (0.0-0.1); Basophils % 1.4 %; Eosinophils # 0.4 10^3/uL (0.0-0.8); Hematocrit 43.7 % (37-53); Lymphocytes # 1.6 10^3/uL (0.8-4.8); Lymphocytes % 31.8 %; Mean Corpuscular HGB Conc 32.5 g/dL (30-55); Mean Corpuscular Hemoglobin 32.6 pg (27-33); Mean Corpuscular Volume 100.5 fl (82-101); Mean Platelet Volume 10.8 fL (7.4-10.4); Monocytes # 0.6 10^3/uL (0.2-0.9); Monocytes % 12.8 %; Neutrophils # 2.29 10^3/uL (1.8-7.7); Neutrophils % 45.8 %; Nucleated Red Blood Cells % 0 %; Platelet Count 191 10^3/cmm (157-399); Red Blood Count 4.35 10^6/uL (3.85-5.65)
[2023-11-07 15:03] VITALS: BP 117/92; PULSE 92; RESP 16; O2SAT 96
[2023-11-07 15:12] LABS: Blood Urea Nitrogen 12 mg/dL (6-20); Calcium 9.2 mg/dL (8.5-10.5); Carbon Dioxide 24 mmol/L (22-29); Chloride 96 mmol/L (98-107); Creatinine Clr Calc Pharmacy 90.0808; Glomerular Filtration Rate 103.6 mL/min (90-130); Glucose 93 mg/dL (65-115); Osmolality Calculated 283 mOsm/kg (285-295); Phenytoin Dilantin 15.2 ug/mL (10-20); Sodium 137 mmol/L (136-145)
[2023-11-07 15:23] LABS: Anion Gap 21.1 (5-19); Potassium 4.1 mmol/L (3.5-5.1)
--- NOTE | 2023-11-07 15:50 | PC.NURSE ---
IV dc'd with catheter intact. DC instructions provided. Pt verbalized understanding. Lowered side rail of bed for pt to get up and pt log rolled head first to his left out of the bed onto the floor. Laceration above left eye. Assisted pt back into bed. Dr Amaya informed of incident. Pt states I feel drunk . Pressure applied to wound, bleeding controlled.
--- NOTE | 2023-11-07 15:52 | CTR_ITS ---
PROCEDURE INFORMATION: Exam: CT Head Without Contrast Exam date and time: 11/07/2023 4:22 PM Age: 48 years old Clinical indication: Injury or trauma; Fall; Laceration; Without loss of consciousness; Without residual foreign body; Eye; Left TECHNIQUE: Imaging protocol: Computed tomography of the head without contrast. Radiation optimization: All CT scans at this facility use at least one of these dose optimization techniques: automated exposure control; mA and/or kV adjustment per patient size (includes targeted exams where dose is matched to clinical indication); or iterative reconstruction. COMPARISON: CT head wo con* [id number] 11/06/2023 9:53 PM RADIATION DOSE METRICS: Total DLP (mGy-cm): 1101.69 FINDINGS: Brain: No hemorrhage. No edema. Mild diffuse cerebral atrophy and sequela of chronic small vessel ischemic disease. No mass effect. Cerebral ventricles: Similar colpocephaly. Paranasal sinuses: Visualized sinuses are unremarkable. No fluid levels. Mastoid air cells: Visualized mastoid air cells are well aerated. Bones/joints: Left parietal approach intraventricular shunt noted terminating in the region of the left foramen of [place]. No acute fracture. Soft tissues: Left periorbital laceration/hematoma noted. CT/CT head wo con* [id number] IMPRESSION: No acute intracranial abnormality.
[2023-11-07 16:00] VITALS: BP 127/87; PULSE 83; RESP 16; O2SAT 99
[2023-11-07 16:30] VITALS: BP 119/77; PULSE 79; RESP 19; O2SAT 98
[2023-11-07 16:51] VITALS: BP 121/78; PULSE 79; RESP 16; O2SAT 99
== END 2023-11-07 17:01 | disposition home or self-care (01) ==
PROVIDERS: Emergency Provider Emergency Medicine
DX: R56.9 Unspecified convulsions (principal); Z91.148 Patient's other noncompliance with medication regimen for other reason; S01.112A Laceration without foreign body of left eyelid and periocular area, initial encounter; W19.XXXA Unspecified fall, initial encounter; Y92.239 Unspecified place in hospital as the place of occurrence of the external cause
CPT/HCPCS: 12013; 70450; 80048; 80185; 85025; 96374; 99285; J1165

== ENCOUNTER 2024-02-23 11:24 | Emergency (ER) | payer BC, MEDICAID, SELFPAY ==
[2024-02-23 11:38] VITALS: BP 107/79; PULSE 64; TEMP 36.7; O2SAT 97; BMI 17.4
--- NOTE | 2024-02-23 13:11 | ED_ITS ---
HPI - Skin/Abscess/Foreign Bdy General: Chief complaint: Skin/Abscess/Foreign Body Stated complaint: sore on chin Time Seen by Provider: 02/23/24 13:09 History of Present Illness: 48-year-old male patient comes in today with draining lesion to the chin area of the face. Patient reports recurrent infection. Patient appears nontoxic. Patient also has a history of seizure disorder and mild intermittent asthma. Patient denies any drug allergies. Review of Systems General: Reports: 10 or more systems reviewed and unremarkable except in HPI and below PFSH ED PFSH: Family History Mother CAD (coronary artery disease) Cancer Psychiatric illness Sister Cancer Psychiatric illness Denies family history of Diabetes Suicide Lung disease Hypertension Stroke Social History Smoking and tobacco/nicotine status: never used tobacco/nicotine Alcohol intake: never Substance/Drug Use: never Physical Exam Const: COMMON NORMALS: alert HENMT: FACE & SINUS: other (Purulent draining lesion chin) Neck/C-Spine: COMMON NORMALS: full ROM Resp: COMMON NORMALS: normal respiratory effort and clear to auscultation bilaterally AUSCULTATION: clear to auscultation bilaterally Cardio: COMMON NORMALS: regular rate RATE: regular rate GI: COMMON NORMALS: non-tender Back/Pelvis: COMMON NORMALS: thoracic and lumbar spine normal to inspection Extremity: COMMON NORMALS: full ROM Neuro: SENSORIUM/ORIENTATION: Yes alert Skin: LESIONS: lesion noted Course Vital Signs: Vital signs: Vital Signs Temperature 98.1 F 02/23/24 11:38 Pulse Rate 64 02/23/24 11:38 Blood Pressure 107/79 02/23/24 11:38 Pulse Oximetry 97 02/23/24 11:38 Oxygen Delivery Me thod Room Air 02/23/24 11:38 MDM - Skin/Abscess/Foreign Bdy Medicial Decision Making 48-year-old male patient comes in today for lesion to the face. Patient reports for the last week he has had the lesion which is now opened and drained. Patient is needing some antibiotics but has no primary care provider. Patient appears nontoxic. Patient has a crusted lesion to the chin of the face with some purulent drainage. Patient also has some mild erythema surrounding it. Patient's face is unshaven. Differential diagnosis includes folliculitis, abscess, pseudofolliculitis. We will treat with doxycycline. Patient was recommended to follow-up with primary care. Case management was requested to help with primary care establishment patient states that understanding and agrees to plan. No radiology studies performed this visit Discharge Plan Discharge Patient Disposition: Home Clinical Impression: Folliculitis Condition: Stable Prescriptions: New doxycycline hyclate 100 mg capsule 100 mg PO BID 10 Days Qty: 20 0RF No Action albuterol sulfate 90 mcg/actuation Hfa Aerosol Inhaler 2 puff INHALATION Q4H PRN (Reason: Shortness Of Breath) phenytoin sodium extended 100 mg capsule 100 mg PO BID Qty: 60 0RF phenytoin sodium extended [Dilantin Extended] 100 mg Capsule 100 mg PO BID metoprolol tartrate 25 mg Tablet 25 mg PO BID Discharge Orders: Discharge ED (Routine); Ordered 02/23/24 Ordered By: Johnnie Enriquez Discharge Diet: Usual diet Discharge Activity: Increase activity as tolerated Patient Instructions: Folliculitis (ED) Activity Restrictions/Additional Instructions: Gently cleanse the area with mild soap and water twice a day. Take oral antibiotics as directed. Drink plenty of water and fluids with medications. Case management will contact you regarding follow-up with primary care to establish. Return to ED for new concerns or worsening symptoms such as high fever or increasing redness and swelling. Coding Level of Care Code ED Visual Presentation Manager for [facility]
--- NOTE | 2024-02-24 09:55 | DCPLANNER ---
message wp fam med for er f/u
== END 2024-02-23 13:40 | disposition home or self-care (01) ==
PROVIDERS: Emergency Provider Nurse Practitioner Family
DX: L73.9 Follicular disorder, unspecified (principal)
CPT/HCPCS: 99283

== ENCOUNTER 2024-03-19 12:23 | Emergency (ER) | payer BC, MEDICAID, SELFPAY ==
[2024-03-19 12:27] VITALS: PULSE 125; RESP 16; TEMP 37.2; O2SAT 96
--- NOTE | 2024-03-19 12:34 | ED.C_ITS ---
HPI - Psych 2 General: Chief Complaint: Psychiatric Symptoms Stated Complaint: SI Time Seen by Provider: 03/19/24 12:32 History of Present Illness: 48-year-old man with a history of depres darius and reported psychiatric issues who presents to the emergency room with suicidal thoughts. He says he thinking about cutting his wrist. He has not done anything yet. No ingestions. He is not currently on any psychiatric medications he says. Review of Systems 2 Narrative: There constitutional symptoms: Negative except as documented in HPI. Skin symptoms: Negative except as documented in HPI. Eye symptoms: Negative except as documented in HPI. ENMT symptoms: Negative except as documented in HPI. Respiratory symptoms: Negative except as documented in HPI. Cardiovascular symptoms: Negative except as documented in HPI. Gastrointestinal symptoms: Negative except as documented in HPI. Genitourinary symptoms: Negative except as documented in HPI. Musculoskeletal symptoms: Negative except as documented in HPI. Neurologic symptoms: Negative except as documented in HPI. Psychiatric symptoms: Negative except as documented in HPI. Endocrine symptoms: Negative except as documented in HPI. PFSH ED 2 PFSH: Family History Mother CAD (coronary artery disease) Cancer Psychiatric illness Sister Cancer Psychiatric illness Denies family history of Diabetes Suicide Lung disease Hypertension Stroke Social History Smoking and tobacco/nicotine status: never used tobacco/nicotine Alcohol intake: never Substance/Drug Use: never Physical Exam 2 Narrative: EXAM NARRATIVE: General: Alert. no acute distress Skin: Warm, dry Head: Normocephalic, atraumatic. Neck: Supple, trachea midline. Eye: Extraocular movements are intact. Ears, nose, mouth and throat: Oral mucosa moist. Cardiovascular: Regular rate and rhythm, Normal peripheral perfusion. Respiratory: Lungs are clear to auscultation, respirations are non-labored, breath sounds are equal, Symmetrical chest wall expansion. Gastrointestinal: Soft, Nontender, Non distended, Normal bowel sounds. Musculoskeletal: Normal ROM, no deformity. Neurological: Alert and oriented to person, place, time, and situation, No focal neurological deficit observed. Psychiatric: Cooperative, depressed, expresses suicidal ideation. Course 2 Vital Signs: Vital signs: Vital Signs Temperature 99.0 F 03/19/24 12:27 Pulse Rate 125 H 03/19/24 12:27 Respiratory Rate 16 03/19/24 12:27 Pulse Oximetry 96 03/19/24 12:27 Oxygen Delivery Me thod Room Air 03/19/24 12:27 MDM - Psych Medical Decision Making Differential diagnosis: Patient with reported depression and suicidal ideation. concerns for infection, alcohol intoxication, cardiac issues or other medical problems prior to psychiatric admission. Workup: labwork, ekg ordered to evaluate the pathologies and to clear the patient medically prior to psychiatric admission Lab Review: Laboratory results were reviewed and interpreted by myself the emergency room physician. Lab review: - Medically cleared. - EKG shows no ischemic changes. - Blood alcohol level is negative, -Tylenol and salicylate levels are negative. - Drug screen is positive for marijuana -Urinalysis does show mild urinary tract infection for which Keflex is being given - No anemia. - BUN and creatinine are within normal limits. Assessment and plan: Depression Suicidal ideation Urinary tract infection -P.o. Keflex being given. This can be continued 500 twice daily for 5 days. -Admission to neuropsychiatric unit for continued evaluation and treatment. - All lab work was reviewed and interpreted personally by myself, the ER physician - Evaluation and treatment of this problem were appropriate in the emergency setting Lab Data 03/19/24 12:45 03/19/24 12:45 Laboratory Results WBC 7.41 10^3/uL (3.29-11.43) 03/19/24 12:45 RBC 4.55 10^6/uL (3.85-5.65) 03/19/24 12:45 Hgb 14.60 g/dL (11.27-16.99) 03/19/24 12:45 Hct 44.6 % (37-53) 03/19/24 12:45 MCV 98.0 fl (82-101) 03/19/24 12:45 MCH 32.1 pg (27-33) 03/19/24 12:45 MCHC 32.7 g/dL (30-55) 03/19/24 12:45 RDW 12.0 % (12.1-15.1) L 03/19/24 12:45 Plt Count 196 10^3/cmm (157-399) 03/19/24 12:45 MPV 10.2 fL (7.4-10.4) 03/19/24 12:45 Neut % (Auto) 60.7 % 03/19/24 12:45 Lymph % (Auto) 31.0 % 03/19/24 12:45 [place] % (Auto) 7.4 % 03/19/24 12:45 Eos % (Auto) 0.1 % 03/19/24 12:45 Baso % (Auto) 0.4 % 03/19/24 12:45 Neut # (Auto) 4.49 10^3/uL (1.8-7.7) 03/19/24 12:45 Lymph # (Auto) 2.3 10^3/uL (0.8-4.8) 03/19/24 12:45 [place] # (Auto) 0.6 10^3/uL (0.2-0.9) 03/19/24 12:45 Eos # (Auto) 0.0 10^3/uL (0.0-0.8) 03/19/24 12:45 Baso # (Auto) 0.0 10^3/uL (0.0-0.1) 03/19/24 12:45 Nucleated RBC % (auto) 0 % 03/19/24 12:45 Nucleated RBCs # 0.0 /100WBC 03/19/24 12:45 Sodium 136 mmol/L (136-145) 03/19/24 12:45 Potassium 3.5 mmol/L (3.5-5.1) 03/19/24 12:45 Chloride 102 mmol/L (98-107) 03/19/24 12:45 Carbon Dioxide 16 mmol/L (22-29) L 03/19/24 12:45 Anion Gap 21.5 (5-19) H 03/19/24 12:45 BUN 18 mg/dL (6-20) 03/19/24 12:45 Creatinine 0.9 mg/dL (0.7-1.2) 03/19/24 12:45 GFR Calculation 90.4 mL/min (90-130) 03/19/24 12:45 Glucose 139 mg/dL (65-115) H 03/19/24 12:45 Calculated Osmolality 286 mOsm/kg (285-295) 03/19/24 12:45 Calcium 8.9 mg/dL (8.5-10.5) 03/19/24 12:45 Total Bilirubin 1.1 mg/dL (0.15-1.2) 03/19/24 12:45 AST 23 U/L (0-40) 03/19/24 12:45 ALT 15 U/L (0-41) 03/19/24 12:45 Alkaline Phosphatase 86 U/L (40-130) 03/19/24 12:45 Total Protein 8.0 g/dL (6.6-8.7) 03/19/24 12:45 Albumin 4.1 g/dL (3.5-5.2) 03/19/24 12:45 Globulin 3.9 g/dL (1.3-4.6) 03/19/24 12:45 TSH 0.89 uIU/mL (0.27-4.20) 03/19/24 12:45 Urine Color Yellow (Yellow) 03/19/24 13:23 Urine Appearance Clear (CLEAR) 03/19/24 13:23 Urine pH 6 (5-7) 03/19/24 13:23 Ur Specific [place] 1.025 (1.005-1.030) 03/19/24 13:23 Urine Protein Trace (Negative) 03/19/24 13:23 Urine Glucose (UA) Norm (Normal) 03/19/24 13:23 Urine Ketones 2+ (Negative) H 03/19/24 13:23 Urine Blood Neg (Negative) 03/19/24 13:23 Urine Nitrate Negative (Negative) 03/19/24 13:23 Urine Bilirubin 1+ (Negative) H 03/19/24 13:23 Urine Urobilinogen 1 mg/dL (Negative) H 03/19/24 13:23 Ur Leukocyte Esterase Negative (Negative) 03/19/24 13:23 Urine RBC None /hpf (0-2) 03/19/24 13:23 Urine WBC 5-10 /hpf (0-5) H 03/19/24 13:23 Ur Squamous Epith Cells None /hpf (0-5) 03/19/24 13:23 Amorphous Sediment Not Reportable 03/19/24 13:23 Urine Bacteria 1+ /hpf (NONE) H 03/19/24 13:23 Urine Mucus 3+ /hpf 03/19/24 13:23 Salicylates < 0.3 mg/dL (3-10) L 03/19/24 12:45 Urine Opiates Screen Negative ng/mL (Negative) 03/19/24 13:23 Acetaminophen < 5.0 ug/mL (10-30) L 03/19/24 12:45 Ur Barbiturates Screen Negative ng/mL (Negative) 03/19/24 13:23 Phenytoin 0.8 ug/mL (10-20) L 03/19/24 12:45 Ur Phencyclidine Scrn Negative ng/mL (Negative) 03/19/24 13:23 Ur Amphetamines Screen Negative ng/mL (Negative) 03/19/24 13:23 U Benzodiazepines Scrn Negative ng/mL (Negative) 03/19/24 13:23 Urine Cocaine Screen Negative ng/mL (Negative) 03/19/24 13:23 U Marijuana (THC) Screen Positive ng/mL (Negative) H 03/19/24 13:23 Ethyl Alcohol < 10 mg/dL (0-10) 03/19/24 12:45 No radiology studies performed this visit Discharge Plan Discharge Patient Disposition: Xfer Short-Term Hosp Clinical Impression: Suicidal ideation, Depression Condition: Stable Coding Level of Care Code ED Apprentice Embalmer for Fei Ku
[2024-03-19 12:57] LABS: Basophils % 0.4 %; Eosinophils % 0.1 %; Hematocrit 44.6 % (37-53); Lymphocytes # 2.3 10^3/uL (0.8-4.8); Mean Corpuscular HGB Conc 32.7 g/dL (30-55); Mean Corpuscular Hemoglobin 32.1 pg (27-33); Mean Platelet Volume 10.2 fL (7.4-10.4); Monocytes # 0.6 10^3/uL (0.2-0.9); Monocytes % 7.4 %; Neutrophils # 4.49 10^3/uL (1.8-7.7); Neutrophils % 60.7 %; Nucleated Red Blood Cells % 0 %; Platelet Count 196 10^3/cmm (157-399); Red Blood Count 4.55 10^6/uL (3.85-5.65); White Blood Count 7.41 10^3/uL (3.29-11.43)
--- NOTE | 2024-03-19 13:07 | ECG_ITS ---
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 Measurements Intervals [place] Rate: 77 P: 78 RI: 135 QRS: 84 QRSD: 82 T: 78 QT: 341 QTc: 386 Interpretive Statements SINUS RHYTHM Normal EKG Compared to ECG 12/21/2020 16:28:37 Heart rate is fast Electronically Signed On 03-19-2024 16:05:43 CDT by Rayna Wilkerson M.D. [email or web address] memorial [id number]
[2024-03-19 13:14] LABS: Phenytoin Dilantin 0.8 ug/mL (10-20)
[2024-03-19 13:15] LABS: Alanine Aminotransferase 15 U/L (0-41); Albumin Level 4.1 g/dL (3.5-5.2); Alkaline Phosphatase 86 U/L (40-130); Aspartate Amino Transferase 23 U/L (0-40); Blood Urea Nitrogen 18 mg/dL (6-20); Calcium 8.9 mg/dL (8.5-10.5); Carbon Dioxide 16 mmol/L (22-29); Chloride 102 mmol/L (98-107); Creatinine Clr Calc Pharmacy 81.3736; Globulin 3.9 g/dL (1.3-4.6); Glomerular Filtration Rate 90.4 mL/min (90-130); Glucose 139 mg/dL (65-115); Osmolality Calculated 286 mOsm/kg (285-295); Sodium 136 mmol/L (136-145); Total Bilirubin 1.1 mg/dL (0.15-1.2)
[2024-03-19 13:18] LABS: Acetaminophen < 5.0 ug/mL (10-30); Alcohol Level < 10 mg/dL (0-10); Anion Gap 21.5 (5-19); Potassium 3.5 mmol/L (3.5-5.1); Salicylate < 0.3 mg/dL (3-10)
[2024-03-19 13:27] LABS: Thyroid Stimulating Hormone 0.89 uIU/mL (0.27-4.20)
[2024-03-19 13:52] LABS: Amphetamines Screen Urine Negative (Negative); Barbiturates Screen Urine Negative (Negative); Benzodiazepines Screen Urine Negative (Negative); Cocaine Screen Urine Negative (Negative); Opiate Screen Urine Negative (Negative); PCP Screen Urine Negative (Negative); THC Screen Urine Positive (Negative)
[2024-03-19 14:33] LABS: Specific Gravity, Urine 1.025 (1.005-1.030); Urine Appearance Clear (CLEAR); Urine Color Yellow (Yellow); pH Urine 6 (5-7)
[2024-03-19 14:34] LABS: Add Urine Culture? No; Bacteria Urine 1+ /hpf; Bilirubin Urine 1+ (Negative); Blood Urine Neg (Negative); Glucose Urine UA Norm (Normal); Ketones Urine 2+ (Negative); Leukocyte Esterase Urine Negative (Negative); Mucus Urine 3+ /hpf; Nitrate Urine Negative (Negative); Protein Urine Trace (Negative); Urobilinogen Urine 1 mg/dL (Negative)
[2024-03-19] MEDS: cephALEXin 500 mg Capsule PO (16:09)
[2024-03-19 20:30] LABS: Phenytoin Dilantin 0.8 ug/mL (10-20)
[2024-03-20 07:34] VITALS: BP 104/73; PULSE 94; RESP 17; O2SAT 96
== END 2024-03-20 07:48 | disposition short-term general hospital (02) ==
PROVIDERS: Emergency Medicine; Emergency Provider Emergency Medicine
DX: R45.851 Suicidal ideations (principal); F32.A Depression, unspecified
CPT/HCPCS: 36415; 80053; 80185; 80306; 80307; 81001; 84443; 85025; 93005; 99284

== ENCOUNTER 2024-04-06 05:31 | Inpatient (IN) | payer BC, MEDICAID, SELFPAY ==
[2024-04-06] VITALS (7 sets, daily range): BP systolic 92–125; BP diastolic 55–84; PULSE 57–105; RESP 16–18; TEMP 36.6–37.2; O2SAT 93–100; BMI 16.5
--- NOTE | 2024-04-06 05:52 | ED.C_ITS ---
HPI - Psych 2 General: Chief Complaint: Psychiatric Symptoms Stated Complaint: SI.MHE Time Seen by Provider: 04/06/24 05:40 Source: patient Mode of arrival: ambulatory Limitations: no limitations History of Present Illness: 48-year-old male states he has been havi ng increasing depression and suicidality. He states he lives with his sister and she has been but rating him he states that he just cannot stand anymore and wants to kill himself he states he voluntarily wants to get help he denies any worsening improving factors. Associated symptoms: Reports depression and suicidal ideation Related Data Home Medications Medication Instructions Recorded Confirmed albuterol sulfate 90 mcg/actuation 2 puff inhalation Q4H PRN 10/25/20 11/07/23 aerosol inhaler Shortness Of Breath metoprolol tartrate 25 mg tablet 25 mg PO BID 11/05/23 11/07/23 phenytoin sodium extended 100 mg 100 mg PO BID 11/05/23 11/07/23 capsule (Dilantin Extended) Previous Rx's Medication Instructions Recorded phenytoin sodium extended 100 mg 100 mg PO BID #60 caps 11/06/23 capsule Allergies Allergy/AdvReac Type Severity Reaction Status Date / Time No Known Allergies Allergy Verified 04/06/24 06:16 Review of Systems 2 Const: Denies: fever(s), chills, body aches or change in appetite ENMT: Denies: throat pain or dental pain Card: Denies: chest pain Resp: Denies: dyspnea GI: Denies: abdominal pain, nausea, vomiting or diarrhea : Denies: dysuria Musc: Denies: neck pain or back pain Skin/Breast: Denies: rash Neuro: Denies: headache(s) Psych: Reports: depression and suicidal ideation PFSH ED 2 PFSH: Family History Mother CAD (coronary artery disease) Cancer Psychiatric illness Sister Cancer Psychiatric illness Denies family history of Diabetes Suicide Lung disease Hypertension Stroke Social History Smoking and tobacco/nicotine status: never used tobacco/nicotine Alcohol intake: never Substance/Drug Use: never Physical Exam 2 Const: COMMON NORMALS: no acute distress, patient oriented x3 and healthy appearing HENMT: COMMON NORMALS: normocephalic and atraumatic HEAD & SCALP: n ormocephalic and atraumatic Neck/C-Spine: COMMON NORMALS: full ROM and supple Chest: COMMONS NORMALS: normal inspection of the chest Resp: COMMON NORMALS: normal respiratory effort Cardio: COMMON NORMALS: regular rate, regular rhythm and No murmurs present (Cardio) RATE: regular rate RHYTHM: regular rhythm Extremity: COMMON NORMALS: normal to inspection and full ROM Neuro: COMMON NORMALS: patient oriented x3, moves all extremities and no focal motor deficits Psych: COMMON NORMALS: mental status grossly normal, Normal thought process present and cooperative THOUGHT PROCESS: Normal thought process present T HOUGHT CONTENT: Yes Suicidality present Skin: COMMON NORMALS: no rashes or lesions noted and no wounds GENERAL SKIN EXAM: no rashes or lesions noted Course 2 Vital Signs: Vital signs: Vital Signs Temperature 98.9 F 04/06/24 05:49 Pulse Rate 105 H 04/06/24 05:49 Respiratory Rate 18 04/06/24 05:49 Blood Pressure 99/69 04/06/24 05:49 Pulse Oximetry 93 04/06/24 05:49 Oxygen Delivery Me thod Room Air 04/06/24 05:32 MDM - Psych Medical Decision Making Patient presents here with suicidal ideations he is medically cleared he voluntarily wants to be admitted will admit at this time. Medical Records I reviewed the patient's medical records. Lab Data I reviewed the patient's lab results. 04/06/24 05:57 04/06/24 05:57 Laboratory Results WBC 6.38 10^3/uL (3.29-11.43) 04/06/24 05:57 RBC 4.07 10^6/uL (3.85-5.65) 04/06/24 05:57 Hgb 13.20 g/dL (11.27-16.99) 04/06/24 05:57 Hct 39.2 % (37-53) 04/06/24 05:57 MCV 96.3 fl (82-101) 04/06/24 05:57 MCH 32.4 pg (27-33) 04/06/24 05:57 MCHC 33.7 g/dL (30-55) 04/06/24 05:57 RDW 12.5 % (12.1-15.1) 04/06/24 05:57 Plt Count 228 10^3/cmm (157-399) 04/06/24 05:57 MPV 9.4 fL (7.4-10.4) 04/06/24 05:57 Neut % (Auto) 57.9 % 04/06/24 05:57 Lymph % (Auto) 30.1 % 04/06/24 05:57 [place] % (Auto) 8.9 % 04/06/24 05:57 Eos % (Auto) 2.2 % 04/06/24 05:57 Baso % (Auto) 0.6 % 04/06/24 05:57 Neut # (Auto) 3.69 10^3/uL (1.8-7.7) 04/06/24 05:57 Lymph # (Auto) 1.9 10^3/uL (0.8-4.8) 04/06/24 05:57 [place] # (Auto) 0.6 10^3/uL (0.2-0.9) 04/06/24 05:57 Eos # (Auto) 0.1 10^3/uL (0.0-0.8) 04/06/24 05:57 Baso # (Auto) 0.0 10^3/uL (0.0-0.1) 04/06/24 05:57 Nucleated RBC % (auto) 0 % 04/06/24 05:57 Nucleated RBCs # 0.0 /100WBC 04/06/24 05:57 Sodium 141 mmol/L (136-145) 04/06/24 05:57 Potassium 3.3 mmol/L (3.5-5.1) L 04/06/24 05:57 Chloride 105 mmol/L (98-107) 04/06/24 05:57 Carbon Dioxide 23 mmol/L (22-29) 04/06/24 05:57 Anion Gap 16.3 (5-19) 04/06/24 05:57 BUN 15 mg/dL (6-20) 04/06/24 05:57 Creatinine 0.9 mg/dL (0.7-1.2) 04/06/24 05:57 GFR Calculation 90.4 mL/min (90-130) 04/06/24 05:57 Glucose 103 mg/dL (65-115) 04/06/24 05:57 Calculated Osmolality 293 mOsm/kg (285-295) 04/06/24 05:57 Calcium 8.4 mg/dL (8.5-10.5) L 04/06/24 05:57 Total Bilirubin 0.3 mg/dL (0.15-1.2) 04/06/24 05:57 AST 19 U/L (0-40) 04/06/24 05:57 ALT 14 U/L (0-41) 04/06/24 05:57 Alkaline Phosphatase 88 U/L (40-130) 04/06/24 05:57 Total Protein 7.2 g/dL (6.6-8.7) 04/06/24 05:57 Albumin 4.1 g/dL (3.5-5.2) 04/06/24 05:57 Globulin 3.1 g/dL (1.3-4.6) 04/06/24 05:57 Salicylates < 0.3 mg/dL (3-10) L 04/06/24 05:57 Acetaminophen < 5.0 ug/mL (10-30) L 04/06/24 05:57 Ethyl Alcohol < 10 mg/dL (0-10) 04/06/24 05:57 No radiology studies performed this visit Discharge Plan Discharge Patient Disposition: Admitted As Inpatient Admit Provider: Pérez Ochoa Clinical Impression: Suicidal ideation Condition: Stable Coding Level of Care Code ED Night Shift Manager for Fei Ku
[2024-04-06 06:15] LABS: Basophils % 0.6 %; Eosinophils # 0.1 10^3/uL (0.0-0.8); Eosinophils % 2.2 %; Hematocrit 39.2 % (37-53); Lymphocytes # 1.9 10^3/uL (0.8-4.8); Lymphocytes % 30.1 %; Mean Corpuscular HGB Conc 33.7 g/dL (30-55); Mean Corpuscular Hemoglobin 32.4 pg (27-33); Mean Corpuscular Volume 96.3 fl (82-101); Mean Platelet Volume 9.4 fL (7.4-10.4); Monocytes # 0.6 10^3/uL (0.2-0.9); Monocytes % 8.9 %; Neutrophils # 3.69 10^3/uL (1.8-7.7); Neutrophils % 57.9 %; Nucleated Red Blood Cells % 0 %; Platelet Count 228 10^3/cmm (157-399); Red Blood Count 4.07 10^6/uL (3.85-5.65); Red Cell Distribution Width 12.5 % (12.1-15.1); White Blood Count 6.38 10^3/uL (3.29-11.43)
[2024-04-06 06:32] LABS: Alanine Aminotransferase 14 U/L (0-41); Albumin Level 4.1 g/dL (3.5-5.2); Alkaline Phosphatase 88 U/L (40-130); Anion Gap 16.3 (5-19); Aspartate Amino Transferase 19 U/L (0-40); Blood Urea Nitrogen 15 mg/dL (6-20); Calcium 8.4 mg/dL (8.5-10.5); Carbon Dioxide 23 mmol/L (22-29); Chloride 105 mmol/L (98-107); Creatinine Clr Calc Pharmacy 76.8169; Globulin 3.1 g/dL (1.3-4.6); Glomerular Filtration Rate 90.4 mL/min (90-130); Glucose 103 mg/dL (65-115); Osmolality Calculated 293 mOsm/kg (285-295); Potassium 3.3 mmol/L (3.5-5.1); Sodium 141 mmol/L (136-145); Total Bilirubin 0.3 mg/dL (0.15-1.2); Total Protein 7.2 g/dL (6.6-8.7)
[2024-04-06 06:35] LABS: Acetaminophen < 5.0 ug/mL (10-30); Alcohol Level < 10 mg/dL (0-10); Salicylate < 0.3 mg/dL (3-10)
[2024-04-06 06:44] LABS: Phenytoin Dilantin 10.2 ug/mL (10-20)
[2024-04-06 06:54] LABS: Amphetamines Screen Urine Negative (Negative); Barbiturates Screen Urine Positive (Negative); Benzodiazepines Screen Urine Negative (Negative); Cocaine Screen Urine Negative (Negative); Opiate Screen Urine Negative (Negative); PCP Screen Urine Negative (Negative); THC Screen Urine Positive (Negative)
--- NOTE | 2024-04-06 07:47 | PC.NURSE ---
report called to alan in NPU
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
[2024-04-06] MEDS: trazodone 50 mg Tablet PO (21:15)
[2024-04-06] MEDS: phenytoin ER 100 mg Capsule PO (22:20)
[2024-04-07 06:00] VITALS: BP 105/52; PULSE 78; RESP 16; TEMP 36.9; O2SAT 94
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
[2024-04-07 10:51] LABS: Phenytoin Dilantin 9.6 ug/mL (10-20)
[2024-04-07 10:58] LABS: Lithium 0.1 mmol/L (0.6-1.2)
[2024-04-07] MEDS: lithium carbonate 300 mg Capsule PO (12:37)
[2024-04-07] MEDS: phenytoin ER 100 mg Capsule PO ×2 (12:37→18:43)
[2024-04-07] MEDS: citalopram 20 mg Tablet 40 MG PO (12:37)
--- NOTE | 2024-04-07 13:38 | PC.NURSE ---
Patient in group. Staff was alerted to patient potentially having a seizure. This nurse, DYLAN Correa and HAYDEN Correa quickly responded. Patient rapid eye movements. Patient albo to comminucate and walk. Staff helped him to his room, VS obtained. VS were WNLs. Patient reports seeing spots in his visual field, rapid eye movement and other vision changes. Patient had stated previously that this happens prop
[2024-04-07 14:00] VITALS: BP 105/67; PULSE 106; RESP 16; TEMP 36.6; O2SAT 96
--- NOTE | 2024-04-07 18:31 | PC.NURSE ---
Patient's room searched by staff for contraband; no contraband uncovered. patient cooperative with search
[2024-04-07] MEDS: metoprolol tartrate 25 mg Tablet PO (20:34)
[2024-04-07] MEDS: lithium carbonate 300 mg Capsule 600 MG PO (20:41)
[2024-04-07 21:23] VITALS: BP 116/78; PULSE 78; RESP 18; TEMP 36.8; O2SAT 97
[2024-04-08 06:00] VITALS: BP 96/61; PULSE 75; RESP 18; TEMP 36.7; O2SAT 97
[2024-04-08] MEDS: phenytoin ER 100 mg Capsule PO ×3 (08:15→20:24)
[2024-04-08] MEDS: metoprolol tartrate 25 mg Tablet PO ×2 (08:15→20:25)
[2024-04-08] MEDS: citalopram 20 mg Tablet 40 MG PO (08:15)
[2024-04-08] MEDS: lithium carbonate 300 mg Capsule PO (08:16)
--- NOTE | 2024-04-08 08:53 | P.NPUPN_ITS ---
Subjective NPU 2 Subjective: Patient presented today reporting that he is doing okay. He does endorse having some seizure activity and we discussed his Dilantin level being slightly low on admission. We discussed the risk benefits and alternatives of increasing the Dilantin to 100 mg p.o. 3 times daily and he understood and agreed to proceed as is documented in this note. We discussed getting a hospitalist consult to evaluate the situation more robustly. He denied any side effects to the medications. Mental Status Exam 2 MSE Comments: This is an underweight versus cachectic white male in hospital scrubs with limited grooming and adequate eye contact. No abnormal movements except for mild psychomotor retardation. Cooperative with exam in mild distress. Speech was mostly normal rate and volume . Mood described as okay, affect was congruent. Thought process appeared linear. Thought content: Patient denied suicidal or homicidal ideation, he did not report delusions and none were noted, he did not report auditory or visual hallucinations. The patient denied having any current thoughts of self-harm or harm to others. He also denied experiencing any auditory hallucinations or feelings of paranoia. His attention and concentration were intact and memory was reliable but none were formally tested. He is alert and oriented x 3. Insight and judgment are impaired impulse impulse impaired. Vitals/I&O/Wt Last Vital Signs Temp 98.0 F 04/08/24 06:00 Pulse 75 04/08/24 06:00 Resp 18 04/08/24 06:00 BP 96/61 04/08/24 06:00 Pulse Ox 97 04/08/24 06:00 O2 Del Method Room Air 04/07/24 06:00 Data NPU 04/06/24 05:57 04/06/24 05:57 A&P Assessment and plan (1) Suicidal ideation: (2) Major depressive disorder, recurrent: (3) PTSD (post-traumatic stress disorder): Plan This is a 58-year-old white male with a long history of mental health issues who presents with a complex history of trauma, substance use, and mental health issues, including depression and anxiety. His current stressors include family issues, lack of support, and health concerns. He has a history of unstable relationships and has been in and out of the criminal justice system. His mental status appears stable at this time, with no current suicidal or homicidal ideation or psychosis. 1. Continue current medication. Increase lithium to 300 mg in the morning and 600 mg at night. 2. Continue every 15 minute checks for safety. 3. Encourage individual, group and milieu therapies. 4. Obtain collateral information. 5.? Encourage sober living treatment, after discharge, at the highest level of care, to which he is willing to commit. 6. Concerns for seizure activity exists. Will increase Dilantin to 100 mg p.o. 3 times daily and get hospitalist consult. Involuntary Hold Information 2 96 Hour Hold: 96 Hour Involuntary Admission: No Attestations NPU 2 Medical Necessity Statement*: Inpatient hospitalization is medically necessary and the clinically appropriate intervention at this time. We will monitor medication to make changes as indicated. His likely length of stay 3-5 days. Coding Level of Care Code Acute Code for [facility] Fwd Diagnoses Suicidal ideation R45.851 Major depressive disorder, recurrent F33.9 PTSD (post-traumatic stress disorder) F43.10
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
[2024-04-08 13:35] VITALS: BP 100/64; PULSE 64; RESP 16; TEMP 36.8; O2SAT 96
[2024-04-08] MEDS: benztropine 1 mg Tablet PO (17:55)
[2024-04-08 18:00] VITALS: BP 123/77; PULSE 74; RESP 16; TEMP 36.6; O2SAT 94
[2024-04-08] MEDS: lithium carbonate 300 mg Capsule 600 MG PO (20:23)
[2024-04-08] MEDS: docusate sodium 100 mg Capsule PO (20:25)
[2024-04-08] MEDS: trazodone 50 mg Tablet 100 MG PO (20:27)
[2024-04-08 20:41] VITALS: BP 107/65; PULSE 69; RESP 18; TEMP 36.7; O2SAT 97
[2024-04-09 06:00] VITALS: BP 90/57; PULSE 79; RESP 17; TEMP 36.6; O2SAT 97
[2024-04-09 08:34] LABS: Phenytoin Dilantin 11.7 ug/mL (10-20)
[2024-04-09] MEDS: citalopram 20 mg Tablet 40 MG PO (09:20)
[2024-04-09] MEDS: lithium carbonate 300 mg Capsule PO (09:20)
[2024-04-09] MEDS: metoprolol tartrate 25 mg Tablet PO ×2 (09:20→20:36)
[2024-04-09] MEDS: phenytoin ER 100 mg Capsule PO ×3 (09:20→20:37)
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
[2024-04-09 09:53] VITALS: BP 90/57; PULSE 79; RESP 17; TEMP 36.6
[2024-04-09 12:00] VITALS: BP 90/57; PULSE 79; RESP 17; TEMP 36.6
[2024-04-09 13:04] VITALS: BP 100/60; PULSE 65; RESP 16; TEMP 36.7; O2SAT 97
--- NOTE | 2024-04-09 13:50 | P.NPUPN_ITS ---
Subjective NPU 2 Subjective: Patient presented today reporting that he is feeling a little better. We discussed his situation at home and some of the challenges that his sister has presented as he lives with her. We discussed working with the social work team to start identifying a discharge plan and we discussed Mr. He identified resources to consider if that relationship continues to be challenging. He denied any side effects of the medications other than the increase in Dilantin making him a little more tired. Mental Status Exam 2 MSE Comments: This is an underweight versus cachectic white male in hospital scrubs with limited grooming and adequate eye contact. No abnormal movements except for mild psychomotor retardation. Cooperative with exam in mild distress. Speech was mostly normal rate and volume . Mood described as okay, affect was congruent. Thought process appeared linear. Thought content: Patient denied suicidal or homicidal ideation, he did not report delusions and none were noted, he did not report auditory or visual hallucinations. The patient denied having any current thoughts of self-harm or harm to others. He also denied experiencing any auditory hallucinations or feelings of paranoia. His attention and concentration were intact and memory was reliable but none were formally tested. He is alert and oriented x 3. Insight and judgment are impaired impulse impulse impaired. Vitals/I&O/Wt Last Vital Signs Temp 98.1 F 04/09/24 13:04 Pulse 65 04/09/24 13:04 Resp 16 04/09/24 13:04 BP 100/60 04/09/24 13:04 Pulse Ox 97 04/09/24 13:04 O2 Del Method Room Air 04/09/24 13:04 Weight last 48 hrs Weight 56.416 kg Data NPU 04/06/24 05:57 04/06/24 05:57 A&P Assessment and plan (1) Breakthrough seizure: (2) Suicidal ideation: (3) Major depressive disorder, recurrent: (4) PTSD (post-traumatic stress disorder): Plan This is a 58-year-old white male with a long history of mental health issues who presents with a complex history of trauma, substance use, and mental health issues, including depression and anxiety. His current stressors include family issues, lack of support, and health concerns. He has a history of unstable relationships and has been in and out of the criminal justice system. His mental status appears stable at this time, with no current suicidal or homicidal ideation or psychosis. 1. Continue current medication. Increase lithium to 300 mg in the morning and 600 mg at night. 2. Continue every 15 minute checks for safety. 3. Encourage individual, group and milieu therapies. 4. Obtain collateral information. 5.? Encourage sober living treatment, after discharge, at the highest level of care, to which he is willing to commit. 6. Concerns for seizure activity exists. Will increase Dilantin to 100 mg p.o. 3 times daily and get hospitalist consult. 7. Appreciate hospitalist consult and will follow recommendations as indicated. Involuntary Hold Information 2 96 Hour Hold: 96 Hour Involuntary Admission: No Attestations NPU 2 Medical Necessity Statement*: Inpatient hospitalization is medically necessary and the clinically appropriate intervention at this time. We will monitor medication to make changes as indicated. His likely length of stay 2-4 days. Coding Level of Care Code Acute Code for [facility] Fwd Diagnoses Breakthrough seizure G40.919 Suicidal ideation R45.851 Major depressive disorder, recurrent F33.9 PTSD (post-traumatic stress disorder) F43.10
[2024-04-09 20:34] VITALS: BP 110/72; PULSE 76; RESP 18; TEMP 37.2; O2SAT 97
[2024-04-09] MEDS: docusate sodium 100 mg Capsule PO (20:36)
[2024-04-09] MEDS: lithium carbonate 300 mg Capsule 600 MG PO (20:37)
[2024-04-10 06:00] VITALS: BP 115/71; PULSE 68; RESP 18; TEMP 36.9; O2SAT 96
[2024-04-10 07:41] VITALS: BP 115/71; PULSE 68; RESP 18; TEMP 36.9
[2024-04-10 08:42] LABS: Phenytoin Dilantin 16.6 ug/mL (10-20)
[2024-04-10] MEDS: metoprolol tartrate 25 mg Tablet PO ×2 (08:59→20:26)
[2024-04-10] MEDS: phenytoin ER 100 mg Capsule PO ×3 (08:59→20:26)
[2024-04-10] MEDS: lithium carbonate 300 mg Capsule PO (08:59)
[2024-04-10] MEDS: citalopram 20 mg Tablet 40 MG PO (08:59)
[2024-04-10 12:00] VITALS: BP 115/71; PULSE 68; RESP 18; TEMP 36.9
[2024-04-10 13:45] VITALS: BP 96/58; PULSE 86; RESP 16; TEMP 36.6; O2SAT 98
[2024-04-10 16:00] VITALS: BP 96/58; PULSE 86; RESP 16; TEMP 36.6
[2024-04-10 19:12] VITALS: BP 110/75; PULSE 67; RESP 16; TEMP 37.1; O2SAT 94
[2024-04-10] MEDS: lithium carbonate 300 mg Capsule 600 MG PO (20:25)
[2024-04-10] MEDS: docusate sodium 100 mg Capsule PO (20:26)
[2024-04-10] MEDS: trazodone 100 mg Tablet PO (20:29)
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
[2024-04-11 06:00] VITALS: BP 118/87; PULSE 66; RESP 16; TEMP 36.9; O2SAT 97
[2024-04-11] MEDS: citalopram 20 mg Tablet 40 MG PO (08:59)
[2024-04-11] MEDS: lithium carbonate 300 mg Capsule PO (09:00)
[2024-04-11] MEDS: phenytoin ER 100 mg Capsule PO ×2 (09:00→14:57)
[2024-04-11] MEDS: metoprolol tartrate 25 mg Tablet PO (09:00)
[2024-04-11 10:22] LABS: Phenytoin Dilantin 19.3 ug/mL (10-20)
[2024-04-11 12:00] VITALS: BP 118/87; PULSE 66; RESP 16; TEMP 36.9
--- NOTE | 2024-04-11 13:25 | W.PM.NPUDCS ---
Diagnoses at Discharge Discharge Diagnosis (1) Breakthrough seizure: Status: Acute (2) Suicidal ideation: Status: Acute (3) Major depressive disorder, recurrent: Status: Acute (4) PTSD (post-traumatic stress disorder): Status: Acute Reason for Visit Reason for Visit: SI.MHE Involuntary Hold Information 96 Hour Hold: 96 Hour Involuntary Admission: No Mental Status Exam MSE Comments: This is an underweight versus cachectic white male in hospital scrubs with limited grooming and adequate eye contact. No abnormal movements except for mild psychomotor retardation. Cooperative with exam in mild distress. Speech was mostly normal rate and volume . Mood described as okay, affect was congruent. Thought process appeared linear. Thought content: Patient denied suicidal or homicidal ideation, he did not report delusions and none were noted, he did not report auditory or visual hallucinations. The patient denied having any current thoughts of self-harm or harm to others. He also denied experiencing any auditory hallucinations or feelings of paranoia. His attention and concentration were intact and memory was reliable but none were formally tested. He is alert and oriented x 3. Insight and judgment are impaired impulse impulse impaired. Discharge Data Studies Completed and Pending: Laboratory Results WBC 6.38 10^3/uL (3.2 9-11.43) 04/06/24 05:57 RBC 4.07 10^6/uL (3.8 5-5.65) 04/06/24 05:57 Hgb 13.20 g/dL (11.27 -16.99) 04/06/24 05:57 Hct 39.2 % (37-53) 04/06/24 05:57 MCV 96.3 fl (82-101) 04/06/24 05:57 MCH 32.4 pg (27-33) 04/06/24 05:57 MCHC 33.7 g/dL (30-55) 04/06/24 05:57 RDW 12.5 % (12.1-15.1 ) 04/06/24 05:57 Plt Count 228 10^3/cmm (157 -399) 04/06/24 05:57 MPV 9.4 fL (7.4-10.4) 04/06/24 05:57 Neut % (Auto) 57.9 % 04/06/24 05:57 Lymph % (Auto) 30.1 % 04/06/24 05:57 [place] % (Auto) 8.9 % 04/06/24 05:57 Eos % (Auto) 2.2 % 04/06/24 05:57 Baso % (Auto) 0.6 % 04/06/24 05:57 Neut # (Auto) 3.69 10^3/uL (1.8 -7.7) 04/06/24 05:57 Lymph # (Auto) 1.9 10^3/uL (0.8- 4.8) 04/06/24 05:57 [place] # (Auto) 0.6 10^3/uL (0.2- 0.9) 04/06/24 05:57 Eos # (Auto) 0.1 10^3/uL (0.0- 0.8) 04/06/24 05:57 Baso # (Auto) 0.0 10^3/uL (0.0- 0.1) 04/06/24 05:57 Nucleated RBC % (a uto) 0 % 04/06/24 05:57 Nucleated RBCs # 0.0 /100WBC 04/06/24 05:57 Sodium 141 mmol/L (136-1 45) 04/06/24 05:57 Potassium 3.3 mmol/L (3.5-5 .1) L 04/06/24 05:57 Chloride 105 mmol/L (98-10 7) 04/06/24 05:57 Carbon Dioxide 23 mmol/L (22-29) 04/06/24 05:57 Anion Gap 16.3 (5-19) 04/06/24 05:57 BUN 15 mg/dL (6-20) 04/06/24 05:57 Creatinine 0.9 mg/dL (0.7-1. 2) 04/06/24 05:57 GFR Calculation 90.4 mL/min (90-1 30) 04/06/24 05:57 Glucose 103 mg/dL (65-115 ) 04/06/24 05:57 Calculated Osmolal ity 293 mOsm/kg (285- 295) 04/06/24 05:57 Calcium 8.4 mg/dL (8.5-10 .5) L 04/06/24 05:57 Total Bilirubin 0.3 mg/dL (0.15-1 .2) 04/06/24 05:57 AST 19 U/L (0-40) 04/06/24 05:57 ALT 14 U/L (0-41) 04/06/24 05:57 Alkaline Phosphata se 88 U/L (40-130) 04/06/24 05:57 Total Protein 7.2 g/dL (6.6-8.7 ) 04/06/24 05:57 Albumin 4.1 g/dL (3.5-5.2 ) 04/06/24 05:57 Globulin 3.1 g/dL (1.3-4.6 ) 04/06/24 05:57 Salicylates < 0.3 mg/dL (3-10 ) L 04/06/24 05:57 Urine Opiates Scre en Negative ng/mL (N egative) 04/06/24 Unknown Acetaminophen < 5.0 ug/mL (10-3 0) L 04/06/24 05:57 Ur Barbiturates Sc reen Positive ng/mL (N egative) H 04/06/24 Unknown Phenytoin 19.3 ug/mL (10-20 ) 04/11/24 09:40 Ur Phencyclidine S crn Negative ng/mL (N egative) 04/06/24 Unknown Ur Amphetamines Sc reen Negative ng/mL (N egative) 04/06/24 Unknown U Benzodiazepines Scrn Negative ng/mL (N egative) 04/06/24 Unknown [place] 0.1 mmol/L (0.6-1 .2) L 04/07/24 10:00 Urine Cocaine Scre en Negative ng/mL (N egative) 04/06/24 Unknown U Marijuana (THC) Screen Positive ng/mL (N egative) H 04/06/24 Unknown Ethyl Alcohol < 10 mg/dL (0-10) 04/06/24 05:57 Vitals: Last Vital Signs Temp 98.4 F 04/11/24 12:00 Pulse 66 04/11/24 12:00 Resp 16 04/11/24 12:00 BP 118/87 04/11/24 12:00 Pulse Ox 97 04/11/24 06:00 O2 Del Method Room Air 04/11/24 06:00 Discharge Plan Discharge Patient Disposition: Home Condition: Stable Prescriptions: New citalopram 40 mg tablet 40 mg PO DAILY 30 Days Qty: 30 1RF trazodone 100 mg Tablet 100 mg PO BEDTIME PRN (Reason: Sleep) 30 Days Qty: 30 1RF lithium carbonate 300 mg Capsule 300 mg PO DAILY 30 Days Qty: 30 1RF lithium carbonate 300 mg Capsule 600 mg PO BEDTIME 30 Days Qty: 60 1RF docusate sodium 100 mg Capsule 100 mg PO BEDTIME Qty: 30 1RF Continued metoprolol tartrate 25 mg Tablet 25 mg PO BID 30 Days Qty: 60 1RF Changed phenytoin sodium extended 100 mg capsule 100 mg PO TID 30 Days Qty: 900 1RF Discharge Orders: Discharge Order (Routine); Ordered 04/11/24 Ordered By: Pérez Ochoa Referrals: [facility] [Outside] Constanza Varma NP [Nurse Practitioner] - 04/18/24 1:45 pm (Establish care/hospital follow up. ) Discharge Diet: Regular Discharge Activity: Resume usual activity Patient Instructions: Opioid Safety Discharge Attestations NPU Time Spent in Discharge Care*: less than 30 min Specific Discharge Activities: Specific discharge activities: educating patient, discussing with rn field case manager/social workers/dc planners, documenting/other paperwork and evaluating patient/reviewing data Coding Level of Care Code Acute Code for Chg Fwd Diagnoses Breakthrough seizure G40.919 Suicidal ideation R45.851 Major depressive disorder, recurrent F33.9 PTSD (post-traumatic stress disorder) F43.10
[2024-04-11 13:34] VITALS: BP 118/87; PULSE 66; RESP 16; TEMP 36.9
[2024-04-11 14:00] VITALS: BP 114/74; PULSE 73; RESP 16; TEMP 37.4; O2SAT 94
== END 2024-04-11 15:30 | disposition home or self-care (01) | DRG 885 ==
LOC: ER 05:54 → NP 06:35
PROVIDERS: Admitting Provider Psychiatry & Neurology Psychiatry; Emergency Provider Emergency Medicine; Visit Provider Psychiatry & Neurology Psychiatry
DX: F33.9 Major depressive disorder, recurrent, unspecified (principal); R45.851 Suicidal ideations; G40.919 Epilepsy, unspecified, intractable, without status epilepticus; F43.10 Post-traumatic stress disorder, unspecified; F41.9 Anxiety disorder, unspecified; Z98.2 Presence of cerebrospinal fluid drainage device; Z63.8 Other specified problems related to primary support group
CPT/HCPCS: 36415; 36600; 80053; 80178; 80185; 80306; 80307; 85025; 97150; 97165; 99285

== ENCOUNTER 2024-06-18 11:33 | Emergency (ER) | payer BC, MEDICAID, SELFPAY ==
--- NOTE | 2024-06-18 11:33 | ECG_ITS ---
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 Measurements Intervals [place] Rate: 55 P: 68 [place]: 144 QRS: 72 QRSD: 76 T: 72 QT: 411 QTc: 396 Interpretive Statements SINUS BRADYCARDIA Compared to ECG 03/19/2024 13:07:38 Sinus rhythm no longer present Electronically Signed On 06-20-2024 01:03:29 CDT by Heather Verdin M.D. [id number]
--- NOTE | 2024-06-18 11:38 | XRR_ITS ---
PROCEDURE INFORMATION: Exam: XR Chest Exam date and time: 06/18/2024 11:50 AM Age: 49 years old Clinical indication: Pain; Chest pressure; Additional info: Chest pain TECHNIQUE: Imaging protocol: Radiologic exam of the chest. Views: 1 view. COMPARISON: CR XR shunt series 11/05/2023 3:32 PM FINDINGS: Tubes, catheters and devices: There is an unchanged left IJ central line or shunt catheter tubing projected over the left neck with tip projected over the superior vena cava. Lungs: The lungs are hyperinflated but clear. No airspace consolidation. Pulmonary vascularity is within normal limits. Pleural spaces: See Bones/joints finding. Heart/Mediastinum: Unremarkable. No cardiomegaly. Bones/joints: Old right rib deformities with pleural thickening is noted. No acute fracture. XR/XR chest 1V portable [id number] IMPRESSION: No active pulmonary disease. The lungs are hyperinflated but clear.
[2024-06-18 11:39] VITALS: BP 119/72; PULSE 64; RESP 16; TEMP 36.6; O2SAT 97; BMI 17.9
--- NOTE | 2024-06-18 11:49 | ED_ITS ---
HPI - Chest Pain 2 General: Chief Complaint: Chest Pain Stated Complaint: chest pain Time Seen by Provider: 06/18/24 11:38 History of Present Illness: Patient presents to the ER with complaint of epigastric/chest pain that started about 45 minutes ago. 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 Patient denies any diaphoresis shortness of breath nausea vomiting diarrhea radiation of pain. Related Data Previous Rx's Medication Instructions Recorded citalopram 40 mg tablet 40 mg PO DAILY 30 days #30 tabs 04/11/24 docusate sodium 100 mg capsule 100 mg PO BEDTIME #30 caps 04/11/24 lithium carbonate 300 mg capsule 300 mg PO DAILY 30 days #30 caps 04/11/24 lithium carbonate 300 mg capsule 600 mg (2 x 300 mg) PO BEDTIME 30 04/11/24 days #60 caps metoprolol tartrate 25 mg tablet 25 mg PO BID 30 days #60 tabs 04/11/24 phenytoin sodium extended 100 mg 100 mg PO TID 30 days #900 caps 04/11/24 capsule trazodone 100 mg tablet 100 mg PO BEDTIME PRN Sleep 30 04/11/24 days #30 tabs Allergies Allergy/AdvReac Type Severity Reaction Status Date / Time No Known Allergies Allergy Verified 04/06/24 06:16 Review of Systems 2 General: Reports: 10 or more systems reviewed and unremarkable except in HPI and below PFSH ED 2 PFSH: Medical History History of seizures History of pneumothorax History of bacterial meningitis 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 status H/O chest tube placement Family History Mother CAD (coronary artery disease) Cancer Psychiatric illness Sister Cancer Psychiatric illness Denies family history of Diabetes Suicide Lung disease Hypertension Stroke Social History Smoking and tobacco/nicotine status: never used tobacco/nicotine Alcohol intake: never Substance/Drug Use: never Physical Exam 2 Const: COMMON NORMALS: no acute distress, average body habitus, patient oriented x3, no limitations, healthy appearing, alert and well nourished HENMT: COMMON NORMALS: normocephalic, atraumatic, hearing grossly normal bilaterally, external ears normal, Normal external nose present and moist oral mucous membranes HEAD & SCALP: normocephalic and atraumatic NOSE: Normal external nose present EXTERNAL EAR: Yes external ears normal Neck/C-Spine: COMMON NORMALS: no JVD Chest: COMMONS NORMALS: normal inspection of the chest and normal palpation of entire chest wall Resp: COMMON NORMALS: normal respiratory effort, No retractions, No use of accessory muscles and clear to auscultation bilaterally AUSCULTATION: clear to auscultation bilaterally Cardio: COMMON NORMALS: no JVD, regular rate, regular rhythm, S1 normal heart sound present, S2 normal heart sound present, No gallops present (Cardio), No clicks present (Cardio), No murmurs present (Cardio) and No rub (Cardio) R ATE: regular rate RHYTHM: regular rhythm HEART SOUNDS: S1 normal heart sound present and S2 normal heart sound present GI: COMMON NORMALS: Normal to inspection, nondistended, normoactive bowel sounds present, Soft to palpation, non-tender, No hepatosplenomegaly present and no masses PALPATION: Yes Soft to palpation and Yes No hepatosplenomegaly present Neuro: COMMON NORMALS: patient oriented x3 SENSORIUM/ORIENTATION: Yes alert Course 2 Vital Signs: Vital signs: Vital Signs Temperature 97.9 F 06/18/24 11:39 Pulse Rate 64 06/18/24 11:39 Respiratory Rate 16 06/18/24 11:39 Blood Pressure 119/72 06/18/24 11:39 Pulse Oximetry 97 06/18/24 11:39 Oxygen Delivery Me thod Room Air 06/18/24 11:39 MDM - Chest Pain Medical Decision Making Patient with a standard chest pain workup with serial EKGs, serial troponins, chest x-ray all which was essentially benign. Patient will be discharged home. Medical Records I reviewed the patient's medical records. Lab Data I reviewed the patient's lab results. 06/18/24 11:50 06/18/24 11:50 Radiology Impressions Chest X-Ray 06/18/24 11:38 IMPRESSION: No active pulmonary disease. The lungs are hyperinflated but clear. Laboratory Results WBC 10.51 10^3/uL (3.29-11.43) 06/18/24 11:50 RBC 3.95 10^6/uL (3.85-5.65) 06/18/24 11:50 Hgb 13.20 g/dL (11.27-16.99) 06/18/24 11:50 Hct 40.7 % (37-53) 06/18/24 11:50 MCV 103.0 fl (82-101) H 06/18/24 11:50 MCH 33.4 pg (27-33) H 06/18/24 11:50 MCHC 32.4 g/dL (30-55) 06/18/24 11:50 RDW 12.6 % (12.1-15.1) 06/18/24 11:50 Plt Count 209 10^3/cmm (157-399) 06/18/24 11:50 MPV 9.5 fL (7.4-10.4) 06/18/24 11:50 Neut % (Auto) 70.0 % 06/18/24 11:50 Lymph % (Auto) 20.5 % 06/18/24 11:50 [place] % (Auto) 5.9 % 06/18/24 11:50 Eos % (Auto) 2.6 % 06/18/24 11:50 Baso % (Auto) 0.5 % 06/18/24 11:50 Neut # (Auto) 7.37 10^3/uL (1.8-7.7) 06/18/24 11:50 Lymph # (Auto) 2.2 10^3/uL (0.8-4.8) 06/18/24 11:50 [place] # (Auto) 0.6 10^3/uL (0.2-0.9) 06/18/24 11:50 Eos # (Auto) 0.3 10^3/uL (0.0-0.8) 06/18/24 11:50 Baso # (Auto) 0.1 10^3/uL (0.0-0.1) 06/18/24 11:50 Nucleated RBC % (auto) 0 % 06/18/24 11:50 Nucleated RBCs # 0.0 /100WBC 06/18/24 11:50 Sodium 136 mmol/L (136-145) 06/18/24 11:50 Potassium 4.4 mmol/L (3.5-5.1) 06/18/24 11:50 Chloride 101 mmol/L (98-107) 06/18/24 11:50 Carbon Dioxide 27 mmol/L (22-29) 06/18/24 11:50 Anion Gap 12.4 (5-19) 06/18/24 11:50 BUN 10 mg/dL (6-20) 06/18/24 11:50 Creatinine 0.9 mg/dL (0.7-1.2) 06/18/24 11:50 GFR Calculation 90.1 mL/min (90-130) 06/18/24 11:50 Glucose 110 mg/dL (65-115) 06/18/24 11:50 Calculated Osmolality 282 mOsm/kg (285-295) L 06/18/24 11:50 Calcium 8.6 mg/dL (8.5-10.5) 06/18/24 11:50 Total Bilirubin 0.5 mg/dL (0.15-1.2) 06/18/24 11:50 AST 100 U/L (0-40) H 06/18/24 11:50 ALT 45 U/L (0-41) H 06/18/24 11:50 Alkaline Phosphatase 120 U/L (40-130) 06/18/24 11:50 Troponin T Baseline < 6 ng/L (0-15) 06/18/24 11:50 Troponin T 120 Minute 6.00 ng/L (0-15) 06/18/24 13:55 Delta Troponin T 0.00834 ABS# (0-10) 06/18/24 13:55 Total Protein 7.0 g/dL (6.6-8.7) 06/18/24 11:50 Albumin 4.3 g/dL (3.5-5.2) 06/18/24 11:50 Globulin 2.7 g/dL (1.3-4.6) 06/18/24 11:50 Lipase 30 U/L (13-60) 06/18/24 11:50 All radiology interpretation(s) finalized by discharge Discharge Plan Discharge Patient Disposition: Home Clinical Impression: Atypical chest pain Condition: Stable Prescriptions: No Action citalopram 40 mg tablet 40 mg PO DAILY 30 Days Qty: 30 1RF trazodone 100 mg Tablet 100 mg PO BEDTIME PRN (Reason: Sleep) 30 Days Qty: 30 1RF lithium carbonate 300 mg Capsule 300 mg PO DAILY 30 Days Qty: 30 1RF lithium carbonate 300 mg Capsule 600 mg PO BEDTIME 30 Days Qty: 60 1RF docusate sodium 100 mg Capsule 100 mg PO BEDTIME Qty: 30 1RF phenytoin sodium extended 100 mg capsule 100 mg PO TID 30 Days Qty: 900 1RF metoprolol tartrate 25 mg Tablet 25 mg PO BID 30 Days Qty: 60 1RF Discharge Orders: Discharge ED (Routine); Ordered 06/18/24 Ordered By: Dinesh Bridges Patient Instructions: Chest Pain - Noncardiac Activity Restrictions/Additional Instructions: Your evaluation in the ER did not show any acute cardiac cause of your chest pain. Your chest pain is felt to be noncardiac in nature. Please follow-up with your family proximal physician within next 7 days for further evaluation and treatment. 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
[2024-06-18 11:59] LABS: Basophils # 0.1 10^3/uL (0.0-0.1); Basophils % 0.5 %; Eosinophils # 0.3 10^3/uL (0.0-0.8); Eosinophils % 2.6 %; Hematocrit 40.7 % (37-53); Lymphocytes # 2.2 10^3/uL (0.8-4.8); Lymphocytes % 20.5 %; Mean Corpuscular HGB Conc 32.4 g/dL (30-55); Mean Corpuscular Hemoglobin 33.4 pg (27-33); Mean Platelet Volume 9.5 fL (7.4-10.4); Monocytes # 0.6 10^3/uL (0.2-0.9); Monocytes % 5.9 %; Neutrophils # 7.37 10^3/uL (1.8-7.7); Nucleated Red Blood Cells % 0 %; Platelet Count 209 10^3/cmm (157-399); Red Blood Count 3.95 10^6/uL (3.85-5.65); Red Cell Distribution Width 12.6 % (12.1-15.1); White Blood Count 10.51 10^3/uL (3.29-11.43)
[2024-06-18] MEDS: lidocaine 2% viscous 15 ML, aluminum-mag hydrox-simethicon 30 ML, sucralfate oral liq 1 GM PO (12:10)
[2024-06-18 12:16] LABS: Troponin(5th) Baseline < 6 ng/L (0-15)
[2024-06-18 12:17] LABS: Alanine Aminotransferase 45 U/L (0-41); Albumin Level 4.3 g/dL (3.5-5.2); Alkaline Phosphatase 120 U/L (40-130); Aspartate Amino Transferase 100 U/L (0-40); Blood Urea Nitrogen 10 mg/dL (6-20); Calcium 8.6 mg/dL (8.5-10.5); Carbon Dioxide 27 mmol/L (22-29); Chloride 101 mmol/L (98-107); Creatinine Clr Calc Pharmacy 80.4986; Globulin 2.7 g/dL (1.3-4.6); Glomerular Filtration Rate 90.1 mL/min (90-130); Glucose 110 mg/dL (65-115); Lipase 30 U/L (13-60); Osmolality Calculated 282 mOsm/kg (285-295); Sodium 136 mmol/L (136-145); Total Bilirubin 0.5 mg/dL (0.15-1.2)
[2024-06-18 12:21] LABS: Anion Gap 12.4 (5-19); Potassium 4.4 mmol/L (3.5-5.1)
--- NOTE | 2024-06-18 13:38 | ECG_ITS ---
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 Measurements Intervals [place] Rate: 81 P: 71 ID: [id number] QRS: 66 QRSD: 70 T: 71 QT: 379 QTc: 442 Interpretive Statements SINUS RHYTHM Compared to ECG 03/19/2024 13:07:38 No significant changes Electronically Signed On 06-20-2024 01:03:32 CDT by Heather Verdin M.D. [email or web address]
[2024-06-18 13:41] VITALS: BP 136/92; PULSE 67; O2SAT 99
[2024-06-18 14:20] LABS: Troponin 5 2HR Delta 0.00001 ABS# (0-10)
[2024-06-18 15:38] VITALS: BP 119/70; PULSE 71; O2SAT 99
[2024-06-18 15:54] VITALS: BP 119/70; PULSE 67; O2SAT 99
== END 2024-06-18 15:56 | disposition home or self-care (01) ==
PROVIDERS: Emergency Provider Emergency Medicine
DX: R07.89 Other chest pain (principal)
CPT/HCPCS: 36415; 71045; 80053; 83690; 84484; 85025; 93005; 99285

== ENCOUNTER 2024-08-25 17:33 | Inpatient (IN) | payer BC, MEDICAID, SELFPAY ==
--- NOTE | 2024-08-25 17:50 | ECG_ITS ---
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 Measurements Intervals [place] Rate: 72 P: 80 GA: 128 QRS: 91 QRSD: 77 T: 75 QT: 349 QTc: 383 Interpretive Statements SINUS RHYTHM WITH SINUS ARRHYTHMIA BORDERLINE RIGHT AXIS DEVIATION [QRS AXIS > 90] Compared to ECG 06/18/2024 13:33:12 No significant changes Electronically Signed On 08-25-2024 21:37:43 DRIER FEEDER by Heather Verdin M.D. [id number]
[2024-08-25 17:51] VITALS: BP 151/73; PULSE 88; RESP 18; TEMP 36.7; O2SAT 99; BMI 17.9
--- NOTE | 2024-08-25 18:24 | W.ED.PSYCHS ---
HPI - Psych General: Chief Complaint: Psychiatric Symptoms Stated Complaint: mhe Time Seen by Provider: 08/25/24 17:37 History of Present Illness: 49-year-old man with a history of seizures and depression who presents emergency room with worsening depression and suicidal thoughts. He says he is thought about walking out of traffic. He is thought about cutting himself with a knife. He said about shooting himself with a gun. He says he woke up today and felt much worse. He is not sure why things changed. He says he has not had any of his medications. Related Data Previous Rx's Medication Instructions Recorded citalopram 40 mg tablet 40 mg PO DAILY 30 days #30 tabs 04/11/24 docusate sodium 100 mg capsule 100 mg PO BEDTIME #30 caps 04/11/24 lithium carbonate 300 mg capsule 300 mg PO DAILY 30 days #30 caps 04/11/24 lithium carbonate 300 mg capsule 600 mg (2 x 300 mg) PO BEDTIME 30 04/11/24 days #60 caps metoprolol tartrate 25 mg tablet 25 mg PO BID 30 days #60 tabs 04/11/24 phenytoin sodium extended 100 mg 100 mg PO TID 30 days #900 caps 04/11/24 capsule trazodone 100 mg tablet 100 mg PO BEDTIME PRN Sleep 30 04/11/24 days #30 tabs Allergies Allergy/AdvReac Type Severity Reaction Status Date / Time No Known Allergies Allergy Verified 04/06/24 06:16 Review of Systems Narrative: Constitutional symptoms: Negative except as documented in HPI. Skin symptoms: Negative except as documented in HPI. Eye symptoms: Negative except as documented in HPI. ENMT symptoms: Negative except as documented in HPI. Respiratory symptoms: Negative except as documented in HPI. Cardiovascular symptoms: Negative except as documented in HPI. Gastrointestinal symptoms: Negative except as documented in HPI. Genitourinary symptoms: Negative except as documented in HPI. Musculoskeletal symptoms: Negative except as documented in HPI. Neurologic symptoms: Negative except as documented in HPI. Psychiatric symptoms: Negative except as documented in HPI. Endocrine symptoms: Negative except as documented in HPI. 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 no acute distress Skin: Warm, dry Head: Normocephalic, atraumatic. Neck: Supple, trachea midline. Eye: Extraocular movements are intact. Ears, nose, mouth and throat: Oral mucosa moist. Cardiovascular: Regular rate and rhythm, Normal peripheral perfusion. Respiratory: Lungs are clear to auscultation, respirations are non-labored, breath sounds are equal, Symmetrical chest wall expansion. Gastrointestinal: Soft, Nontender, Non distended, Normal bowel sounds. Musculoskeletal: Normal ROM, no deformity. Neurological: Alert and oriented to person, place, time, and situation, No focal neurological deficit observed. Psychiatric: Cooperative, depressed, expresses suicidal ideation. Course Vital Signs: Vital signs: Vital Signs Temperature 98.1 F 08/25/24 17:51 Pulse Rate 88 08/25/24 17:51 Respiratory Rate 18 08/25/24 17:51 Blood Pressure 151/73 08/25/24 17:51 Pulse Oximetry 99 08/25/24 17:51 Oxygen Delivery Me thod Room Air 08/25/24 17:51 MDM - Psych Medical Decision Making Differential diagnosis: Patient with reported depression and suicidal ideation. concerns for infection, alcohol intoxication, cardiac issues or other medical problems prior to psychiatric admission. Workup: labwork, ekg ordered to evaluate the pathologies and to clear the patient medically prior to psychiatric admission EKG: Time 1750. Rate 72. Normal sinus rhythm, No ST-T changes, no ectopy, normal ND & QRS intervals, This was reviewed and interpreted by myself the ER physician at 1755 Lab Review: Laboratory results were reviewed and interpreted by myself the emergency room physician. - Medically cleared. - EKG shows no ischemic changes. - Blood alcohol level is negative, -Tylenol and salicylate levels are negative. - Drug screen is positive for marijuana - No signs of infection, urinalysis clear and white count is not elevated - No anemia. - BUN and creatinine are within normal limits. Consultation: I spoke with Dr. Ochoa who is on-call for the psychiatry service who agrees to admission. Assessment and plan: Suicidal ideation Depression Medical noncompliance ?Patient is voluntary but 96-hour hold is being placed per hospital policy -Admission to neuropsychiatric unit for continued evaluation and treatment. - All lab work was reviewed and interpreted personally by myself, the ER physician - Evaluation and treatment of this problem were appropriate in the emergency setting Lab Data 08/25/24 18:47 08/25/24 18:47 Laboratory Results WBC 13.78 10^3/uL (3.29-11.43) H 08/25/24 18:47 RBC 5.05 10^6/uL (3.85-5.65) 08/25/24 18:47 Hgb 16.30 g/dL (11.27-16.99) 08/25/24 18:47 Hct 49.7 % (37-53) 08/25/24 18:47 MCV 98.4 fl (82-101) 08/25/24 18:47 MCH 32.3 pg (27-33) 08/25/24 18:47 MCHC 32.8 g/dL (30-55) 08/25/24 18:47 RDW 11.7 % (12.1-15.1) L 08/25/24 18:47 Plt Count 189 10^3/cmm (157-399) 08/25/24 18:47 MPV 11.4 fL (7.4-10.4) H 08/25/24 18:47 Neut % (Auto) 82.7 % 08/25/24 18:47 Lymph % (Auto) 10.2 % 08/25/24 18:47 [place] % (Auto) 6.0 % 08/25/24 18:47 Eos % (Auto) 0.2 % 08/25/24 18:47 Baso % (Auto) 0.5 % 08/25/24 18:47 Neut # (Auto) 11.41 10^3/uL (1.8-7.7) H 08/25/24 18:47 Lymph # (Auto) 1.4 10^3/uL (0.8-4.8) 08/25/24 18:47 [place] # (Auto) 0.8 10^3/uL (0.2-0.9) 08/25/24 18:47 Eos # (Auto) 0.0 10^3/uL (0.0-0.8) 08/25/24 18:47 Baso # (Auto) 0.1 10^3/uL (0.0-0.1) 08/25/24 18:47 Nucleated RBC % (auto) 0 % 08/25/24 18:47 Nucleated RBCs # 0.0 /100WBC 08/25/24 18:47 Sodium 139 mmol/L (136-145) 08/25/24 18:47 Potassium 4.4 mmol/L (3.5-5.1) 08/25/24 18:47 Chloride 101 mmol/L (98-107) 08/25/24 18:47 Carbon Dioxide 24 mmol/L (22-29) 08/25/24 18:47 Anion Gap 18.4 (5-19) 08/25/24 18:47 BUN 15 mg/dL (6-20) 08/25/24 18:47 Creatinine 0.8 mg/dL (0.7-1.2) 08/25/24 18:47 GFR Calculation 103.2 mL/min (90-130) 08/25/24 18:47 Glucose 100 mg/dL (65-115) 08/25/24 18:47 Calculated Osmolality 289 mOsm/kg (285-295) 08/25/24 18:47 Calcium 10.0 mg/dL (8.5-10.5) 08/25/24 18:47 Total Bilirubin 0.5 mg/dL (0.15-1.2) 08/25/24 18:47 AST 21 U/L (0-40) 08/25/24 18:47 ALT 17 U/L (0-41) 08/25/24 18:47 Alkaline Phosphatase 107 U/L (40-130) 08/25/24 18:47 Total Protein 8.9 g/dL (6.6-8.7) H 08/25/24 18:47 Albumin 4.9 g/dL (3.5-5.2) 08/25/24 18:47 Globulin 4.0 g/dL (1.3-4.6) 08/25/24 18:47 TSH 1.45 uIU/mL (0.27-4.20) 08/25/24 18:47 Urine Color Yellow (Yellow) 08/25/24 18:41 Urine Appearance Clear (CLEAR) 08/25/24 18:41 Urine pH 6.5 (5-7) 08/25/24 18:41 Ur Specific [place] 1.019 (1.005-1.030) 08/25/24 18:41 Urine Protein Trace (Negative) A 08/25/24 18:41 Urine Glucose (UA) Negative (Normal) 08/25/24 18:41 Urine Ketones Trace (Negative) 08/25/24 18:41 Urine Blood Negative (Negative) 08/25/24 18:41 Urine Nitrate Negative (Negative) 08/25/24 18:41 Urine Bilirubin Negative (Negative) 08/25/24 18:41 Urine Urobilinogen 0.2 mg/dL (Negative) 08/25/24 18:41 Ur Leukocyte Esterase Negative (Negative) 08/25/24 18:41 Urine RBC 0-2 /hpf (0-2) 08/25/24 18:41 Urine WBC 0-5 /hpf (0-5) 08/25/24 18:41 Ur Squamous Epith Cells 0-5 /hpf (0-5) 08/25/24 18:41 Amorphous Sediment Not Reportable 08/25/24 18:41 Urine Bacteria None seen /hpf (NONE) 08/25/24 18:41 Hyaline Casts 1.65 /lpf 08/25/24 18:41 Salicylates < 0.3 mg/dL (3-10) L 08/25/24 18:47 Urine Opiates Screen Negative ng/mL (Negative) 08/25/24 18:41 Acetaminophen < 5.0 ug/mL (10-30) L 08/25/24 18:47 Ur Barbiturates Screen Negative ng/mL (Negative) 08/25/24 18:41 Ur Phencyclidine Scrn Negative ng/mL (Negative) 08/25/24 18:41 Ur Amphetamines Screen Negative ng/mL (Negative) 08/25/24 18:41 U Benzodiazepines Scrn Negative ng/mL (Negative) 08/25/24 18:41 Urine Cocaine Screen Negative ng/mL (Negative) 08/25/24 18:41 U Marijuana (THC) Screen Positive ng/mL (Negative) H 08/25/24 18:41 Ethyl Alcohol < 10 mg/dL (0-10) 08/25/24 18:47 No radiology studies performed this visit Discharge Plan Discharge Patient Disposition: Admitted As Inpatient Admit Provider: Pérez Ochoa Clinical Impression: Depression, Suicidal ideation, Medical non-compliance Condition: Stable Coding Level of Care Code ED Core Loader for [facility]
[2024-08-25 18:54] LABS: Bilirubin Urine Negative (Negative); Blood Urine Negative (Negative); Glucose Urine UA Negative (Normal); Ketones Urine Trace (Negative); Leukocyte Esterase Urine Negative (Negative); Nitrate Urine Negative (Negative); Protein Urine Trace (Negative); Specific Gravity, Urine 1.019 (1.005-1.030); Urine Appearance Clear (CLEAR); Urine Color Yellow (Yellow); Urobilinogen Urine 0.2 mg/dL (Negative); pH Urine 6.5 (5-7)
[2024-08-25 19:00] LABS: Amphetamines Screen Urine Negative (Negative); Bacteria Urine None Seen /hpf; Barbiturates Screen Urine Negative (Negative); Benzodiazepines Screen Urine Negative (Negative); Cocaine Screen Urine Negative (Negative); Hyaline Casts Urine 1.65 /lpf; Opiate Screen Urine Negative (Negative); PCP Screen Urine Negative (Negative); RBC Urine 0-2 /hpf (0-2); Squamous Epithelial Cell Urine 0-5 /hpf (0-5); THC Screen Urine Positive (Negative); WBC Urine 0-5 /hpf (0-5)
[2024-08-25 19:15] LABS: Basophils # 0.1 10^3/uL (0.0-0.1); Basophils % 0.5 %; Eosinophils % 0.2 %; Hematocrit 49.7 % (37-53); Lymphocytes # 1.4 10^3/uL (0.8-4.8); Lymphocytes % 10.2 %; Mean Corpuscular HGB Conc 32.8 g/dL (30-55); Mean Corpuscular Hemoglobin 32.3 pg (27-33); Mean Corpuscular Volume 98.4 fl (82-101); Mean Platelet Volume 11.4 fL (7.4-10.4); Monocytes # 0.8 10^3/uL (0.2-0.9); Neutrophils # 11.41 10^3/uL (1.8-7.7); Neutrophils % 82.7 %; Nucleated Red Blood Cells % 0 %; Platelet Count 189 10^3/cmm (157-399); Red Blood Count 5.05 10^6/uL (3.85-5.65); Red Cell Distribution Width 11.7 % (12.1-15.1); White Blood Count 13.78 10^3/uL (3.29-11.43)
[2024-08-25 19:37] LABS: Slide Review Slide Review Perform
--- NOTE | 2024-08-25 19:40 | PC.NURSE ---
96 Hour Involuntary Hold Patient Rights have been discussed with the patient and all questions have been answered to his satisfaction. Patient acknowledges understanding of said Rights and a copy of the same has been given to him. [employer] Dressmaker Jerri Palacios was present at bedside during the time of presentation of Rights. .
[2024-08-25 19:44] LABS: Alanine Aminotransferase 17 U/L (0-41); Albumin Level 4.9 g/dL (3.5-5.2); Alkaline Phosphatase 107 U/L (40-130); Aspartate Amino Transferase 21 U/L (0-40); Blood Urea Nitrogen 15 mg/dL (6-20); Carbon Dioxide 24 mmol/L (22-29); Chloride 101 mmol/L (98-107); Creatinine Clr Calc Pharmacy 90.5609; Glomerular Filtration Rate 103.2 mL/min (90-130); Glucose 100 mg/dL (65-115); Osmolality Calculated 289 mOsm/kg (285-295); Sodium 139 mmol/L (136-145); Thyroid Stimulating Hormone 1.45 uIU/mL (0.27-4.20); Total Bilirubin 0.5 mg/dL (0.15-1.2); Total Protein 8.9 g/dL (6.6-8.7)
[2024-08-25 19:45] LABS: Acetaminophen < 5.0 ug/mL (10-30); Alcohol Level < 10 mg/dL (0-10); Anion Gap 18.4 (5-19); Potassium 4.4 mmol/L (3.5-5.1); Salicylate < 0.3 mg/dL (3-10)
[2024-08-25 20:23] VITALS: BP 148/75; PULSE 81; RESP 16; O2SAT 99
[2024-08-25 20:52] VITALS: BP 121/76; PULSE 88; RESP 20; TEMP 37.4; O2SAT 96
[2024-08-25 21:01] VITALS: BP 121/76; PULSE 88; RESP 20; TEMP 37.4; O2SAT 96
[2024-08-25] MEDS: phenytoin ER 100 mg Capsule PO (21:50)
[2024-08-26 06:00] VITALS: BP 90/57; PULSE 100; RESP 18; TEMP 36.9; O2SAT 97
[2024-08-26] MEDS: citalopram 20 mg Tablet PO (09:01)
[2024-08-26] MEDS: phenytoin ER 100 mg Capsule PO ×2 (09:01→17:35)
[2024-08-26 14:00] VITALS: BP 107/66; PULSE 94; RESP 16; TEMP 37.1; O2SAT 94
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
[2024-08-26 19:54] VITALS: BP 159/74; PULSE 107; RESP 18; TEMP 37.1; O2SAT 98
[2024-08-26] MEDS: trazodone 50 mg Tablet PO (22:02)
[2024-08-26] MEDS: hyDROXYzine 25 mg Capsule 50 MG PO (22:02)
[2024-08-27 06:00] VITALS: BP 113/57; PULSE 65; RESP 16; TEMP 36.9; O2SAT 94
[2024-08-27] MEDS: phenytoin ER 100 mg Capsule PO ×2 (08:39→17:23)
[2024-08-27] MEDS: citalopram 20 mg Tablet PO (08:39)
--- NOTE | 2024-08-27 10:37 | P.NPUPN_ITS ---
Subjective NPU 2 Subjective: Patient presented today reporting that he all right. He reports that he is tolerating the resumption of his medication without any difficulties. He reports that he has not spoken to his sister. We discussed the social work reaching out to her family to get some collateral information and also talk about what discharge might look like from the standpoint of logistics. We also talked about working with the social work team on establishing some outpatient care there will give him a pathway to possible housing independence. He denied any side effects to the medication. Mental Status Exam 2 MSE Comments: This is an underweight versus cachectic white male in hospital scrubs with limited grooming and adequate eye contact. No abnormal movements except for mild psychomotor retardation. Cooperative with exam in mild distress. Speech was mostly normal rate and volume. Mood described as better than yesterday, affect was congruent. Thought process appeared linear. Thought content: Patient denied suicidal or homicidal ideation, he did not report delusions and none were noted, he did not report auditory or visual hallucinations. The patient denied having any current thoughts of self-harm or harm to others. He also denied experiencing any auditory hallucinations or feelings of paranoia. His attention and concentration were intact and memory was reliable but none were formally tested. He is alert and oriented x 3. Insight and judgment are limited and impulse control impaired. Vitals/I&O/Wt Last Vital Signs Temp 98.4 F 08/27/24 06:00 Pulse 65 08/27/24 06:00 Resp 16 08/27/24 06:00 BP 113/57 08/27/24 06:00 Pulse Ox 94 08/27/24 06:00 O2 Del Method Room Air 08/26/24 14:00 Weight last 48 hrs Weight 56.926 kg Weight 56.699 kg Data NPU 08/25/24 18:47 08/25/24 18:47 A&P Assessment and plan (1) Breakthrough seizure: (2) Suicidal ideation: (3) Major depressive disorder, recurrent: (4) PTSD (post-traumatic stress disorder): Plan This is a 49-year-old white male with a long history of mental health issues who was here in March and returns for similar issues with presents with a complex history of trauma, substance use, and mental health issues, including depression and anxiety. His current stressors continue to be family issues, lack of support, limited finances and health concerns. He has a history of unstable relationships and has been in and out of the criminal justice system. Family conflict with his sister with whom he lives continues to create challenges and he is open to alternative living situations but reports she is his most stable option. 1. Restart Celexa 20 mg p.o. daily and Dilantin 100 mg p.o. twice daily. We will consider restarting lithium. Need to get a Dilantin level. Will look to increase Dilantin to 100 mg p.o. 3 times daily soon and likely Celexa increased to 40 mg prior to discharge. 2. Continue every 15 minute checks for safety. 3. Encourage individual, group and milieu therapies. 4. Obtain collateral information. 5.? Encourage sober living treatment, after discharge, at the highest level of care, to which he is willing to commit. Involuntary Hold Information 2 96 Hour Hold: 96 Hour Involuntary Admission: Yes 96 Hour Hold Ending Date: 08/31/24 96 Hour Hold Ending Time: 18:45 Other Hold: Hold End Date: 08/31/24 Attestations NPU 2 Medical Necessity Statement*: Inpatient hospitalization is medically necessary and the clinically appropriate intervention at this time. We will monitor medication to make changes as indicated. Patient will be in the hospital for over two midnights. His likely length of stay 4-6 days. Coding Level of Care Code Acute Code for Chg Fwd Diagnoses Breakthrough seizure G40.919 Suicidal ideation R45.851 Major depressive disorder, recurrent F33.9 PTSD (post-traumatic stress disorder) F43.10
[2024-08-27 13:39] VITALS: BP 100/66; PULSE 105; RESP 16; TEMP 36.9; O2SAT 97
[2024-08-27 19:59] VITALS: BP 126/78; PULSE 90; RESP 18; TEMP 37.1; O2SAT 96
[2024-08-27] MEDS: trazodone 50 mg Tablet PO (20:31)
[2024-08-27] MEDS: hyDROXYzine 25 mg Capsule 50 MG PO (20:31)
[2024-08-28 06:00] VITALS: BP 104/68; PULSE 111; RESP 17; TEMP 36.7; O2SAT 100
[2024-08-28] MEDS: phenytoin ER 100 mg Capsule PO ×3 (08:26→20:47)
[2024-08-28] MEDS: citalopram 20 mg Tablet PO (08:26)
--- NOTE | 2024-08-28 13:30 | P.NPUPN_ITS ---
Subjective NPU 2 Subjective: Patient presented today reporting that he is doing all right. He reports that he spoke to the social work team and that they are looking at different options as we did last time he was here to make sure that ultimately he will be able to avoid having his sister's house be his only option. He reports that he is tolerating the medication and we discussed the risks, benefits and alternatives of increasing his Dilantin to 100 mg p.o. 3 times daily and he understood and agreed to proceed as is documented in this note. He denied any side effects of his medications. Mental Status Exam 2 MSE Comments: This is an underweight versus cachectic white male in hospital scrubs with limited grooming and adequate eye contact. No abnormal movements except for mild psychomotor retardation. Cooperative with exam in mild distress. Speech was mostly normal rate and volume. Mood described as okay, affect was congruent. Thought process appeared linear. Thought content: Patient denied suicidal or homicidal ideation, he did not report delusions and none were noted, he did not report auditory or visual hallucinations. The patient denied having any current thoughts of self-harm or harm to others. He also denied experiencing any auditory hallucinations or feelings of paranoia. His attention and concentration were intact and memory was reliable but none were formally tested. He is alert and oriented x 3. Insight and judgment are limited and impulse control impaired. Vitals/I&O/Wt Last Vital Signs Temp 98.1 F 08/28/24 06:00 Pulse 111 H 08/28/24 06:00 Resp 17 08/28/24 06:00 BP 104/68 08/28/24 06:00 Pulse Ox 100 08/28/24 06:00 O2 Del Method Room Air 08/27/24 13:39 Weight last 48 hrs Weight 56.926 kg Data NPU 08/25/24 18:47 08/25/24 18:47 A&P Assessment and plan (1) Breakthrough seizure: (2) Suicidal ideation: (3) Major depressive disorder, recurrent: (4) PTSD (post-traumatic stress disorder): Plan This is a 49-year-old white male with a long history of mental health issues who was here in March and returns for similar issues with presents with a complex history of trauma, substance use, and mental health issues, including depression and anxiety. His current stressors continue to be family issues, lack of support, limited finances and health concerns. He has a history of unstable relationships and has been in and out of the criminal justice system. Family conflict with his sister with whom he lives continues to create challenges and he is open to alternative living situations but reports she is his most stable option. 1. Restart Celexa 20 mg p.o. daily and Dilantin 100 mg p.o. twice daily. We will consider restarting lithium. Need to get a Dilantin level. Increase Dilantin to 100 mg p.o. 3 times daily soon and likely Celexa increased to 40 mg prior to discharge. 2. Continue every 15 minute checks for safety. 3. Encourage individual, group and milieu therapies. 4. Obtain collateral information. 5.? Encourage sober living treatment, after discharge, at the highest level of care, to which he is willing to commit. Involuntary Hold Information 2 96 Hour Hold: 96 Hour Involuntary Admission: Yes 96 Hour Hold Ending Date: 08/31/24 96 Hour Hold Ending Time: 18:45 Other Hold: Hold End Date: 08/31/24 Attestations NPU 2 Medical Necessity Statement*: Inpatient hospitalization is medically necessary and the clinically appropriate intervention at this time. We will monitor medication to make changes as indicated. His likely length of stay 3-5 days. Coding Level of Care Code Acute Code for Chg Fwd Diagnoses Breakthrough seizure G40.919 Suicidal ideation R45.851 Major depressive disorder, recurrent F33.9 PTSD (post-traumatic stress disorder) F43.10
[2024-08-28 14:00] VITALS: BP 130/75; PULSE 86; RESP 16; TEMP 37.1; O2SAT 94
[2024-08-28 20:21] VITALS: BP 118/71; PULSE 86; RESP 16; TEMP 37.4; O2SAT 96
[2024-08-28] MEDS: trazodone 50 mg Tablet PO ×2 (20:47→23:16)
[2024-08-28] MEDS: hyDROXYzine 25 mg Capsule 50 MG PO (20:47)
[2024-08-28] MEDS: docusate sodium 100 mg Capsule 200 MG PO (23:11)
[2024-08-29 06:00] VITALS: BP 96/61; PULSE 83; RESP 16; TEMP 36.7; O2SAT 98
[2024-08-29] MEDS: citalopram 20 mg Tablet PO (08:31)
[2024-08-29] MEDS: phenytoin ER 100 mg Capsule PO ×3 (08:32→21:17)
--- NOTE | 2024-08-29 11:37 | PC.NURSE ---
During morning rounding patient expressed to nurse he had been having suicidal ideation. When asked about a plan patient stated he had thought about hanging himself. Nurse asked if he had intent to act on this plan and patient stated no, but I just think that sometimes i'd be better off . Patient agreed to contract for safety and inform staff of any other suicidal ideation. Nurse informed the rest of NPU staff to increase awareness and observation. Patient participated in group therapy, patient observed talking and laughing with peers.
[2024-08-29 14:00] VITALS: BP 111/73; PULSE 88; RESP 16; TEMP 36.7; O2SAT 95
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
[2024-08-29 20:07] VITALS: BP 118/78; PULSE 105; RESP 18; TEMP 37.1; O2SAT 96
[2024-08-29] MEDS: docusate sodium 100 mg Capsule 200 MG PO (21:17)
[2024-08-29] MEDS: trazodone 50 mg Tablet PO (21:19)
[2024-08-30 06:15] VITALS: BP 114/54; PULSE 99; RESP 16; TEMP 36.8; O2SAT 97
[2024-08-30] MEDS: phenytoin ER 100 mg Capsule PO ×3 (09:11→21:22)
[2024-08-30] MEDS: citalopram 20 mg Tablet PO (09:11)
[2024-08-30 14:00] VITALS: BP 130/84; PULSE 90; RESP 16; TEMP 37.1; O2SAT 96
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
[2024-08-30 20:05] VITALS: BP 129/81; PULSE 88; RESP 18; TEMP 37.2; O2SAT 96
[2024-08-30] MEDS: docusate sodium 100 mg Capsule 200 MG PO (21:21)
[2024-08-30] MEDS: trazodone 50 mg Tablet PO (21:21)
[2024-08-30] MEDS: hyDROXYzine 25 mg Capsule 50 MG PO (21:21)
[2024-08-31 06:15] VITALS: BP 108/67; PULSE 89; RESP 18; TEMP 36.8; O2SAT 97
[2024-08-31] MEDS: phenytoin ER 100 mg Capsule PO ×3 (08:33→20:29)
[2024-08-31] MEDS: citalopram 20 mg Tablet PO ×2 (08:33→20:28)
[2024-08-31 14:00] VITALS: BP 116/68; PULSE 98; RESP 16; TEMP 36.9; O2SAT 98
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
--- NOTE | 2024-08-31 20:05 | PC.NURSE ---
Patient was found on the mat next to his mattress appearing to have a seizure. Patient was turned to his right side and Dr. Ochoa came to bedside almost immediately. VS were assessed, 129/66, pulse 103, O2 of 98% RA, pupils were at least PERRL. Received orders for Hospitalist consult. Orders received shortly after from Dr. Lion for 1000mg Keppra NOW, and Keppra BID as well as continue Dilantin. Head CT W/O contrast orders also received.
[2024-08-31] MEDS: docusate sodium 100 mg Capsule 200 MG PO (20:29)
[2024-08-31] MEDS: levETIRAcetam 500 mg Tablet 1000 MG PO (20:29)
[2024-08-31 20:52] VITALS: BP 129/66; PULSE 63; RESP 20; O2SAT 95
[2024-08-31 22:00] LABS: Phenytoin Dilantin 21.6 ug/mL (10-20)
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
--- NOTE | 2024-08-31 22:04 | CTR_ITS ---
PROCEDURE INFORMATION: Exam: CT Head Without Contrast Exam date and time: 08/31/2024 11:53 PM Age: 49 years old Clinical indication: Other: Recent seizure; Prior surgery; Surgery date: 6+ months; Surgery type: Patient states he has had about 6 brain surgeries, with last shunt placed in 2005 TECHNIQUE: Imaging protocol: Computed tomography of the head without contrast. Radiation optimization: All CT scans at this facility use at least one of these dose optimization techniques: automated exposure control; mA and/or kV adjustment per patient size (includes targeted exams where dose is matched to clinical indication); or iterative reconstruction. COMPARISON: CT head wo con* [id number] 11/07/2023 4:22 PM RADIATION DOSE METRICS: Total DLP (mGy-cm): 1100.17 FINDINGS: Tubes, catheters and devices: Stable position of the left posterior parietal approach ventricular catheter terminating in the left lateral ventricle. The ventricles are decompressed, with near-complete collapse of the left lateral ventricle , significantly decreased compared to the prior. There is also interval mildly decreased caliber of the right lateral ventricle. Brain: No acute intra- or extra axial fluid collections are identified. The basal cisterns are patent. No mass effect or midline shift is seen. The [place]-white matter differentiation is normal. Periventricular hypoattenuation is a nonspecific finding. Stable hypoattenuation around the left posterior approach ventricular catheter. Increase CSF space posterior to the cerebellum is unchanged from prior. Cerebral ventricles: Redemonstration of colpocephaly, with interval decreased caliber of the ventricles as outlined above. Paranasal sinuses: There is mild paranasal sinus disease. Mild opacification in the anterior left ethmoid air cells/anterior inferior left frontal sinus. The nasal septum is deviated to the left with a septal spur. Mastoid air cells: The mastoid air cells appear grossly clear. Small amount of cerumen is present in the left external auditory canal. Orbital cavities: The orbits appear normal. Bones: No acute calvarial fracture is identified. Soft tissues: No soft tissue abnormalities identified. CT/CT head wo con* [id number] IMPRESSION: Compared to the prior CT of the head from 11/07/2023: 1. Stable position of the left posterior parietal approach ventricular catheter, with interval decreased caliber of the ventricles as outlined above. 2. Otherwise, no evidence of acute intracranial hemorrhage, mass effect, or midline shift. 3. Paranasal sinus disease as outlined.
--- NOTE | 2024-08-31 23:47 | PC.NURSE ---
off unit for CT with security and nurse
--- NOTE | 2024-08-31 23:59 | PC.NURSE ---
pt back on unit at this time
[2024-09-01] MEDS: acetaminophen 325 mg Tablet 650 MG PO (00:04)
[2024-09-01 06:15] VITALS: BP 120/66; PULSE 66; RESP 16; O2SAT 95
[2024-09-01] MEDS: phenytoin ER 100 mg Capsule PO (08:21)
[2024-09-01] MEDS: citalopram 20 mg Tablet 40 MG PO (08:21)
[2024-09-01] MEDS: ondansetron 4 MG Tablet PO (08:25)
[2024-09-01 09:03] LABS: Basophils # 0.1 10^3/uL (0.0-0.1); Basophils % 1.2 %; Eosinophils # 0.1 10^3/uL (0.0-0.8); Eosinophils % 1.7 %; Hematocrit 43.9 % (37-53); Lymphocytes # 1.9 10^3/uL (0.8-4.8); Lymphocytes % 31.9 %; Mean Corpuscular HGB Conc 32.8 g/dL (30-55); Mean Corpuscular Hemoglobin 33.3 pg (27-33); Mean Corpuscular Volume 101.4 fl (82-101); Mean Platelet Volume 9.7 fL (7.4-10.4); Monocytes # 0.5 10^3/uL (0.2-0.9); Monocytes % 9.1 %; Neutrophils # 3.26 10^3/uL (1.8-7.7); Neutrophils % 55.9 %; Nucleated Red Blood Cells % 0 %; Platelet Count 234 10^3/cmm (157-399); Red Blood Count 4.33 10^6/uL (3.85-5.65); Red Cell Distribution Width 11.9 % (12.1-15.1); White Blood Count 5.83 10^3/uL (3.29-11.43)
[2024-09-01 09:27] LABS: Alanine Aminotransferase 9 U/L (0-41); Albumin Level 4.5 g/dL (3.5-5.2); Alkaline Phosphatase 100 U/L (40-130); Anion Gap 19.2 (5-19); Aspartate Amino Transferase 17 U/L (0-40); Blood Urea Nitrogen 17 mg/dL (6-20); Calcium 9.1 mg/dL (8.5-10.5); Carbon Dioxide 22 mmol/L (22-29); Chloride 101 mmol/L (98-107); Creatinine Clr Calc Pharmacy 80.8209; Globulin 3.3 g/dL (1.3-4.6); Glomerular Filtration Rate 90.1 mL/min (90-130); Glucose 175 mg/dL (65-115); Osmolality Calculated 292 mOsm/kg (285-295); Potassium 4.2 mmol/L (3.5-5.1); Sodium 138 mmol/L (136-145); Total Bilirubin 0.6 mg/dL (0.15-1.2); Total Protein 7.8 g/dL (6.6-8.7)
[2024-09-01] MEDS: levETIRAcetam 1,000 mg/10 mL UDC 1000 MG PO (09:34)
--- NOTE | 2024-09-01 13:41 | P.PN_ITS ---
Subjective 2 Subjective: Patient was seen this morning, denies any breakthrough seizures, no nausea, no vomiting does feel a bit unsteady on his feet, a bit drowsy, discussed it could be from his Dilantin and/or Keppra, his Dilantin level was a bit elevated 21.6, he tells me that he has been on 100 twice daily for a long period of time, currently on 3 times daily discussed decreasing the dose down to 100 mg twice daily as we have added on Keppra thousand twice daily, Vitals/I&O/Wt Last Vital Signs Temp 98.5 F 08/31/24 14:00 Pulse 66 09/01/24 06:15 Resp 16 09/01/24 06:15 BP 120/66 09/01/24 06:15 Pulse Ox 95 09/01/24 06:15 O2 Del Method Room Air 08/31/24 14:00 Physical Exam 2 Const: COMMON NORMALS: no acute distress and patient oriented x3 Resp: COMMON NORMALS: normal respiratory effort, No retractions, No use of accessory muscles and clear to auscultation bilaterally AUSCULTATION: clear to auscultation bilaterally Cardio: COMMON NORMALS: regular rate, regular rhythm, S1 normal heart sound present and S2 normal heart sound present RATE: regular rate RHYTHM: r egular rhythm HEART SOUNDS: S1 normal heart sound present and S2 normal heart sound present GI: COMMON NORMALS: Normal to inspection, nondistended, normoactive bowel sounds present and non-tender Extremity: COMMON NORMALS: no pedal edema Neuro: COMMON NORMALS: patient oriented x3 Psych: COMMON NORMALS: mental status grossly normal Data 09/01/24 08:43 09/01/24 08:43 A&P Assessment and plan (1) Medical non-compliance: (2) Major depressive disorder, recurrent: (3) Suicidal ideation: (4) Depression: (5) Status post ventriculoatrial shunt placement: (6) Breakthrough seizure: Plan Breakthrough seizure History of traumatic brain injury [employer] shunt Patient has been off Dilantin for about 2 to 3 weeks Dilantin level elevated at 21.6 Decrease Dilantin to 100 mg twice daily Continue Keppra thousand twice daily Patient was advised given his breakthrough seizure, as per [place] state law, he cannot drive for at least 6 months Follow-up with Dr. Rodriguez in 1 week If any breakthrough seizures with emergency room Attestations 2 Medical Necessity Statement*: Patient will be discharged today Diagnoses Medical non-compliance Z91.199 Major depressive disorder, recurrent F33.9 Suicidal ideation R45.851 Depression F32.A Status post ventriculoatrial shunt placement Z98.2 Breakthrough seizure G40.919
[2024-09-01 14:00] VITALS: BP 120/78; PULSE 68; RESP 16; TEMP 37; O2SAT 96
--- NOTE | 2024-09-01 14:02 | W.PM.NPUDCS ---
Diagnoses at Discharge Discharge Diagnosis (1) Medical non-compliance: Status: Acute (2) Major depressive disorder, recurrent: Status: Acute (3) Suicidal ideation: Status: Acute (4) Depression: Status: Acute (5) Status post ventriculoatrial shunt placement: Status: Acute (6) Breakthrough seizure: Status: Acute Reason for Visit Reason for Visit: mhe Involuntary Hold Information 96 Hour Hold: 96 Hour Involuntary Admission: Yes 96 Hour Hold Ending Date: 08/31/24 96 Hour Hold Ending Time: 18:45 Other Hold: Hold End Date: 08/31/24 Mental Status Exam MSE Comments: This is an underweight versus cachectic white male in hospital scrubs with limited grooming and adequate eye contact. No abnormal movements except for mild psychomotor retardation. Cooperative with exam in mild distress. Speech was mostly normal rate and volume. Mood described as okay, affect was congruent. Thought process appeared linear. Thought content: Patient denied suicidal or homicidal ideation, he did not report delusions and none were noted, he did not report auditory or visual hallucinations. The patient denied having any current thoughts of self-harm or harm to others. He also denied experiencing any auditory hallucinations or feelings of paranoia. His attention and concentration were intact and memory was reliable but none were formally tested. He is alert and oriented x 3. Insight and judgment are limited and impulse control impaired. Discharge Data Studies Completed and Pending: Completed Studies During Hospitalization Category Date Time Status CT head wo con* [id number] Routine Cat Scan 08/31/24 22:04 Completed Pending at discharge Category Date Time Status Dilantin Level [P henytoin Dilantin] Routine Lab 09/02/24 08:00 Ordered Radiology Impressions Head CT 08/31/24 22:04 IMPRESSION: Compared to the prior CT of the head from 11/07/2023: 1. Stable position of the left posterior parietal approach ventricular catheter, with interval decreased caliber of the ventricles as outlined above. 2. Otherwise, no evidence of acute intracranial hemorrhage, mass effect, or midline shift. 3. Paranasal sinus disease as outlined. Laboratory Results WBC 5.83 10^3/uL (3.2 9-11.43) 09/01/24 08:43 RBC 4.33 10^6/uL (3.8 5-5.65) 09/01/24 08:43 Hgb 14.40 g/dL (11.27 -16.99) 09/01/24 08:43 Hct 43.9 % (37-53) 09/01/24 08:43 MCV 101.4 fl (82-101) H 09/01/24 08:43 MCH 33.3 pg (27-33) H 09/01/24 08:43 MCHC 32.8 g/dL (30-55) 09/01/24 08:43 RDW 11.9 % (12.1-15.1 ) L 09/01/24 08:43 Plt Count 234 10^3/cmm (157 -399) 09/01/24 08:43 MPV 9.7 fL (7.4-10.4) 09/01/24 08:43 Neut % (Auto) 55.9 % 09/01/24 08:43 Lymph % (Auto) 31.9 % 09/01/24 08:43 [place] % (Auto) 9.1 % 09/01/24 08:43 Eos % (Auto) 1.7 % 09/01/24 08:43 Baso % (Auto) 1.2 % 09/01/24 08:43 Neut # (Auto) 3.26 10^3/uL (1.8 -7.7) 09/01/24 08:43 Lymph # (Auto) 1.9 10^3/uL (0.8- 4.8) 09/01/24 08:43 [place] # (Auto) 0.5 10^3/uL (0.2- 0.9) 09/01/24 08:43 Eos # (Auto) 0.1 10^3/uL (0.0- 0.8) 09/01/24 08:43 Baso # (Auto) 0.1 10^3/uL (0.0- 0.1) 09/01/24 08:43 Nucleated RBC % (a uto) 0 % 09/01/24 08:43 Nucleated RBCs # 0.0 /100WBC 09/01/24 08:43 Sodium 138 mmol/L (136-1 45) 09/01/24 08:43 Potassium 4.2 mmol/L (3.5-5 .1) 09/01/24 08:43 Chloride 101 mmol/L (98-10 7) 09/01/24 08:43 Carbon Dioxide 22 mmol/L (22-29) 09/01/24 08:43 Anion Gap 19.2 (5-19) H 09/01/24 08:43 BUN 17 mg/dL (6-20) 09/01/24 08:43 Creatinine 0.9 mg/dL (0.7-1. 2) 09/01/24 08:43 GFR Calculation 90.1 mL/min (90-1 30) 09/01/24 08:43 Glucose 175 mg/dL (65-115 ) H 09/01/24 08:43 Calculated Osmolal ity 292 mOsm/kg (285- 295) 09/01/24 08:43 Calcium 9.1 mg/dL (8.5-10 .5) 09/01/24 08:43 Total Bilirubin 0.6 mg/dL (0.15-1 .2) 09/01/24 08:43 AST 17 U/L (0-40) 09/01/24 08:43 ALT 9 U/L (0-41) 09/01/24 08:43 Alkaline Phosphata se 100 U/L (40-130) 09/01/24 08:43 Total Protein 7.8 g/dL (6.6-8.7 ) 09/01/24 08:43 Albumin 4.5 g/dL (3.5-5.2 ) 09/01/24 08:43 Globulin 3.3 g/dL (1.3-4.6 ) 09/01/24 08:43 TSH 1.45 uIU/mL (0.27 -4.20) 08/25/24 18:47 Urine Color Yellow (Yellow) 08/25/24 18:41 Urine Appearance Clear (CLEAR) 08/25/24 18:41 Urine pH 6.5 (5-7) 08/25/24 18:41 Ur Specific Gravit y 1.019 (1.005-1.0 30) 08/25/24 18:41 Urine Protein Trace (Negative) A 08/25/24 18:41 Urine Glucose (UA) Negative (Normal ) 08/25/24 18:41 Urine Ketones Trace (Negative) 08/25/24 18:41 Urine Blood Negative (Negati ve) 08/25/24 18:41 Urine Nitrate Negative (Negati ve) 08/25/24 18:41 Urine Bilirubin Negative (Negati ve) 08/25/24 18:41 Urine Urobilinogen 0.2 mg/dL (Negati ve) 08/25/24 18:41 Ur Leukocyte Paulina ase Negative (Negati ve) 08/25/24 18:41 Urine RBC 0-2 /hpf (0-2) 08/25/24 18:41 Urine WBC 0-5 /hpf (0-5) 08/25/24 18:41 Ur Squamous Epith Cells 0-5 /hpf (0-5) 08/25/24 18:41 Amorphous Sediment Not Reportable 08/25/24 18:41 Urine Bacteria None seen /hpf (N ONE) 08/25/24 18:41 Hyaline Casts 1.65 /lpf 08/25/24 18:41 Salicylates < 0.3 mg/dL (3-10 ) L 08/25/24 18:47 Urine Opiates Scre en Negative ng/mL (N egative) 08/25/24 18:41 Acetaminophen < 5.0 ug/mL (10-3 0) L 08/25/24 18:47 Ur Barbiturates Sc reen Negative ng/mL (N egative) 08/25/24 18:41 Phenytoin 21.6 ug/mL (10-20 ) H 08/31/24 21:36 Ur Phencyclidine S crn Negative ng/mL (N egative) 08/25/24 18:41 Ur Amphetamines Sc reen Negative ng/mL (N egative) 08/25/24 18:41 U Benzodiazepines Scrn Negative ng/mL (N egative) 08/25/24 18:41 Urine Cocaine Scre en Negative ng/mL (N egative) 08/25/24 18:41 U Marijuana (THC) Screen Positive ng/mL (N egative) H 08/25/24 18:41 Ethyl Alcohol < 10 mg/dL (0-10) 08/25/24 18:47 Vitals: Last Vital Signs Temp 98.5 F 08/31/24 14:00 Pulse 66 09/01/24 06:15 Resp 16 09/01/24 06:15 BP 120/66 09/01/24 06:15 Pulse Ox 95 09/01/24 06:15 O2 Del Method Room Air 08/31/24 14:00 Discharge Plan Discharge Patient Disposition: Home Condition: Stable Prescriptions: New phenytoin sodium extended [Dilantin Extended] 100 mg capsule 100 mg PO BID 30 Days Qty: 60 0RF levetiracetam [Keppra] 1,000 mg tablet 1,000 mg PO BID 30 Days Qty: 60 0RF citalopram 40 mg tablet 40 mg PO DAILY 30 Days Qty: 30 1RF trazodone 50 mg Tablet 50 mg PO BEDTIME PRN (Reason: Sleep) 30 Days Qty: 30 1RF hydroxyzine pamoate 25 mg Capsule 50 mg PO Q6H PRN (Reason: Anxiety) 30 Days Qty: 120 1RF No Action No Known Home Medications Discharge Orders: Discharge Order (Routine); Ordered 09/01/24 Ordered By: Pérez Ochoa Referrals: [facility] [Outside] - 09/06/24 8:30 am (Scheduled for a 8:30 ck in on 09/06/24 with Nereida Delgado. Your transportation was scheduled. Trip number [phone]) Jesús Rodriguez MD [Physician] - 1 week Halima Fregoso MD [Physician] - 10/19/24 3:00 pm (Establish care. Your transportation was scheduled. Trip number [id number]) Discharge Diet: Regular Discharge Activity: Resume usual activity Patient Instructions: Opioid Safety Activity Restrictions/Additional Instructions: - As per [place] State law, given your breakthrough seizure, you cannot drive for at least 6 months -Follow-up with Dr. Rodriguez as outpatient -Continue Dilantin 100 twice daily -Continue Keppra 1000 mg twice daily -If you have any breakthrough seizures please come back to the emergency room Discharge Attestations NPU Time Spent in Discharge Care*: less than 30 min Specific Discharge Activities: Specific discharge activities: educating patient, discussing with correctional case records supervisor/social workers/dc planners, documenting/other paperwork and evaluating patient/reviewing data Coding Level of Care Code Acute Code for Chg Fwd Diagnoses Medical non-compliance Z91.199 Major depressive disorder, recurrent F33.9 Suicidal ideation R45.851 Depression F32.A Status post ventriculoatrial shunt placement Z98.2 Breakthrough seizure G40.919
[2024-09-01 14:10] VITALS: BP 120/66; PULSE 66; RESP 16; TEMP 36.9; O2SAT 95
== END 2024-09-01 14:52 | disposition home or self-care (01) | DRG 885 ==
LOC: ER 18:28 → NP 19:39
PROVIDERS: Internal Medicine; Admitting Provider Psychiatry & Neurology Psychiatry; Emergency Provider Emergency Medicine; Visit Provider Psychiatry & Neurology Psychiatry
DX: F33.9 Major depressive disorder, recurrent, unspecified (principal); R45.851 Suicidal ideations; E46 Unspecified protein-calorie malnutrition; Z68.1 Body mass index [BMI] 19.9 or less, adult; F43.10 Post-traumatic stress disorder, unspecified; G40.909 Epilepsy, unspecified, not intractable, without status epilepticus; Z63.9 Problem related to primary support group, unspecified; Z91.199 Patient's noncompliance with other medical treatment and regimen due to unspecified reason; Z98.2 Presence of cerebrospinal fluid drainage device
CPT/HCPCS: 36415; 70450; 80053; 80185; 80306; 80307; 81001; 84443; 85025; 93005; 97150; 97165; 99285; Q0162

== ENCOUNTER 2024-09-06 17:12 | Inpatient (IN) | payer BC, SELFPAY ==
[2024-09-06 17:18] VITALS: BP 122/72; PULSE 100; RESP 16; TEMP 36.5; O2SAT 96; BMI 22.9
[2024-09-06] MEDS: LORazepam 2 mg Tablet PO (18:03)
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
[2024-09-06 19:46] LABS: Basophils # 0.1 10^3/uL (0.0-0.1); Basophils % 0.6 %; Eosinophils # 0.1 10^3/uL (0.0-0.8); Eosinophils % 0.8 %; Hematocrit 39.7 % (37-53); Lymphocytes # 1.4 10^3/uL (0.8-4.8); Lymphocytes % 16.8 %; Mean Corpuscular HGB Conc 32.5 g/dL (30-55); Mean Corpuscular Hemoglobin 32.9 pg (27-33); Mean Corpuscular Volume 101.3 fl (82-101); Mean Platelet Volume 9.6 fL (7.4-10.4); Monocytes # 0.6 10^3/uL (0.2-0.9); Monocytes % 7.2 %; Neutrophils # 6.19 10^3/uL (1.8-7.7); Neutrophils % 74.4 %; Nucleated Red Blood Cells % 0 %; Platelet Count 194 10^3/cmm (157-399); Red Blood Count 3.92 10^6/uL (3.85-5.65); Red Cell Distribution Width 11.9 % (12.1-15.1); White Blood Count 8.33 10^3/uL (3.29-11.43)
[2024-09-06 19:50] LABS: Amphetamines Screen Urine Negative (Negative); Barbiturates Screen Urine Positive (Negative); Benzodiazepines Screen Urine Negative (Negative); Cocaine Screen Urine Negative (Negative); Opiate Screen Urine Negative (Negative); PCP Screen Urine Negative (Negative); THC Screen Urine Positive (Negative)
[2024-09-06 20:02] LABS: Alanine Aminotransferase 15 U/L (0-41); Albumin Level 4.1 g/dL (3.5-5.2); Alkaline Phosphatase 90 U/L (40-130); Anion Gap 11.6 (5-19); Aspartate Amino Transferase 19 U/L (0-40); Blood Urea Nitrogen 13 mg/dL (6-20); Calcium 8.8 mg/dL (8.5-10.5); Carbon Dioxide 28 mmol/L (22-29); Chloride 106 mmol/L (98-107); Creatinine Clr Calc Pharmacy 132.9437; Globulin 3.1 g/dL (1.3-4.6); Glomerular Filtration Rate 120.4 mL/min (90-130); Glucose 85 mg/dL (65-115); Osmolality Calculated 293 mOsm/kg (285-295); Potassium 3.6 mmol/L (3.5-5.1); Sodium 142 mmol/L (136-145); Total Bilirubin 0.2 mg/dL (0.15-1.2); Total Protein 7.2 g/dL (6.6-8.7)
[2024-09-06 20:03] LABS: Acetaminophen < 5.0 ug/mL (10-30); Alcohol Level < 10 mg/dL (0-10); Salicylate < 0.3 mg/dL (3-10)
[2024-09-06 23:16] VITALS: BP 96/59; PULSE 95; RESP 18; TEMP 36.9; O2SAT 96
[2024-09-06] MEDS: phenytoin ER 100 mg Capsule PO (23:48)
[2024-09-06] MEDS: OLANZapine 5 mg ODT PO (23:51)
[2024-09-06] MEDS: trazodone 50 mg Tablet PO (23:51)
--- NOTE | 2024-09-07 00:01 | PC.NURSE ---
96 Hour Involuntary Hold Patient Rights have been reviewed with the patient and a copy of the same has been provided to him. Director Mission Rima was present at the time of presentation of Rights.
[2024-09-07 06:00] VITALS: BP 103/66; PULSE 78; RESP 16; O2SAT 97
[2024-09-07] MEDS: citalopram 20 mg Tablet 40 MG PO (08:24)
[2024-09-07] MEDS: phenytoin ER 100 mg Capsule PO ×2 (08:24→17:10)
[2024-09-07] MEDS: levETIRAcetam 500 mg Tablet 1000 MG PO ×2 (08:24→17:10)
[2024-09-07 14:00] VITALS: BP 117/71; PULSE 86; RESP 16; TEMP 37; O2SAT 97
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
[2024-09-07] MEDS: risperiDONE 1 mg Tablet 0.5 MG PO (20:47)
[2024-09-07] MEDS: trazodone 50 mg Tablet PO (20:48)
[2024-09-07 21:51] VITALS: BP 97/63; PULSE 85; RESP 16; TEMP 37.1; O2SAT 96
[2024-09-08 06:00] VITALS: BP 106/66; PULSE 90; RESP 16; TEMP 36.6; O2SAT 98
[2024-09-08] MEDS: phenytoin ER 100 mg Capsule PO ×2 (08:31→17:21)
[2024-09-08] MEDS: levETIRAcetam 500 mg Tablet 1000 MG PO ×2 (08:32→17:21)
[2024-09-08 14:00] VITALS: BP 120/88; PULSE 100; RESP 16; TEMP 36.6; O2SAT 96
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
[2024-09-08] MEDS: trazodone 50 mg Tablet PO (20:27)
[2024-09-08] MEDS: risperiDONE 1 mg Tablet PO (20:27)
[2024-09-08 21:38] VITALS: BP 126/85; PULSE 87; RESP 18; TEMP 36.6; O2SAT 95
[2024-09-09 06:00] VITALS: BP 107/73; PULSE 110; RESP 18; TEMP 36.9; O2SAT 96
[2024-09-09] MEDS: levETIRAcetam 500 mg Tablet 1000 MG PO ×2 (09:32→17:22)
[2024-09-09] MEDS: phenytoin ER 100 mg Capsule PO ×2 (09:32→17:22)
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
[2024-09-09 14:00] VITALS: BP 126/84; PULSE 97; RESP 16; TEMP 37; O2SAT 97
[2024-09-09] MEDS: acetaminophen 325 mg Tablet 650 MG PO (15:45)
--- NOTE | 2024-09-09 15:48 | PC.NURSE ---
ORDERS RECEIVED FROM DR. FINLEY TO GIVE A ONE TIME DOSE OF CLONZEPAM 1 MG NOW FOR SEIZURE LIKE ACTIVITY. ORDERS PLACED. PT EDUCATED ON NEW ORDERS AND VERBALIZED EDUCATION.
[2024-09-09] MEDS: CLONazepam 1 mg Tablet PO (15:53)
[2024-09-09] MEDS: risperiDONE 1 mg Tablet PO (20:02)
[2024-09-09 22:00] VITALS: BP 112/78; PULSE 83; RESP 18; TEMP 36.6; O2SAT 97
[2024-09-10 06:00] VITALS: BP 103/67; PULSE 93; RESP 16; TEMP 36.7; O2SAT 96
[2024-09-10] MEDS: phenytoin ER 100 mg Capsule PO ×2 (08:15→17:28)
[2024-09-10] MEDS: levETIRAcetam 500 mg Tablet 1000 MG PO ×3 (08:15→17:27)
[2024-09-10] MEDS: OLANZapine 5 mg ODT PO (11:53)
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
[2024-09-10 14:00] VITALS: BP 100/69; PULSE 123; RESP 16; TEMP 36.6; O2SAT 98
--- NOTE | 2024-09-10 15:56 | P.NPUPN_ITS ---
Subjective NPU 2 Subjective: Patient is a 49-year-old male admitted with homicidal ideation and suicidal ideation along with frequent mood swings and a history of traumatic brain injury. The patient had reported some periods of agitation. He had been argumentative with staff and engaged in continued blaming of others as he had reported problems with sister and chronic problems with staff here. The patient had reported having a history of frequent nightmares associated with trauma. He had expressed interest in considering medications to reduce his nightmares. He had reported having an episode of a potential seizure yesterday although he had not appeared to have complete loss of consciousness. He continued to struggle with completion of activities of daily living. Mental Status Exam 2 MSE Comments: This is an underweight versus cachectic white male in hospital scrubs with limited grooming, poor dentition, and poor eye contact seen in his bedroom. No abnormal movements except for psychomotor slowing. He was cooperative with exam in mild distress. Speech was normal in rate and volume. Mood described as okay. Affect was less irritable but was mood incongruent. Thought process appeared linear. Thought content: Patient continued to endorse angry thoughts while placing blame to all his problems at the hand of his sister. He did not report delusions and none were noted, he did not report auditory or visual hallucinations. He also denied experiencing any auditory hallucinations or feelings of paranoia. His attention and concentration were intact and memory was reliable but none were formally tested. He is alert and oriented x 3. Insight is impaired. His judgment is limited and impulse control is impaired. Vitals/I&O/Wt Last Vital Signs Temp 97.9 F 09/10/24 14:00 Pulse 123 H 09/10/24 14:00 Resp 16 09/10/24 14:00 BP 100/69 09/10/24 14:00 Pulse Ox 98 09/10/24 14:00 O2 Del Method Room Air 09/10/24 14:00 Weight last 48 hrs Weight 59.693 kg Data NPU 09/06/24 19:23 09/06/24 19:23 A&P Assessment and plan (1) Unspecified mood [affective] disorder: (2) Suicidal ideation: (3) PTSD (post-traumatic stress disorder): (4) Suicidal ideation: (5) Homicidal ideation: Plan This is a 49-year-old white male with a long history of mental health issues recently discharged last week from [facility] with hx of trauma, seizures, traumatic brain injury, with homicidal and suicidal ideation. His current stressors continue to be family issues, lack of support, limited finances and health concerns. He has a history of unstable relationships and has been in and out of the criminal justice system. Family conflict with his sister with whom he lives continues to create challenges and he is open to alternative living situations but reports she is his most stable option. 1. Continue Dilantin 100 mg p.o. twice daily and Keppra as prescribed at 1000mg bid. Increase risperidone .5mg in am, 1mg at night. Consider prazosin at 2mg at night. 2. Continue every 15 minute checks for safety. 3. Encourage individual, group and milieu therapies. 4. Obtain collateral information. 5.? Encourage sober living treatment, after discharge, at the highest level of care, to which he is willing to commit. Police spoke to patient's sister regarding patient's threats toward her and patient's sister expressed feeling safe in her environment and that patient was able to return home. Involuntary Hold Information 2 96 Hour Hold: 96 Hour Involuntary Admission: Yes 96 Hour Hold Ending Date: 09/13/24 96 Hour Hold Ending Time: 00:01 Other Hold: Hold End Date: 08/31/24 Attestations NPU 2 Medical Necessity Statement*: Inpatient hospitalization is medically necessary and the clinically appropriate intervention at this time. We will monitor medication to make changes as indicated. His likely length of stay 2-3 days. Coding Level of Care Code Acute Code for Chg Fwd Diagnoses Unspecified mood [affective] disorder F39 Suicidal ideation R45.851 PTSD (post-traumatic stress disorder) F43.10 Homicidal ideation R45.850
[2024-09-10] MEDS: risperiDONE 1 mg Tablet PO (21:02)
[2024-09-10] MEDS: trazodone 50 mg Tablet PO (21:02)
[2024-09-10 22:00] VITALS: BP 128/85; PULSE 104; RESP 18; TEMP 36.9; O2SAT 98
[2024-09-11 06:00] VITALS: BP 111/76; PULSE 75; RESP 16; TEMP 36.6; O2SAT 96
[2024-09-11] MEDS: risperiDONE 0.25 mg Tablet 0.5 MG PO (08:10)
[2024-09-11] MEDS: phenytoin ER 100 mg Capsule PO ×2 (08:10→17:26)
[2024-09-11 14:00] VITALS: BP 139/96; PULSE 98; RESP 17; TEMP 36.9; O2SAT 100
--- NOTE | 2024-09-11 16:28 | P.NPUPN_ITS ---
Subjective NPU 2 Subjective: Patient is a 49-year-old male admitted with homicidal ideation and suicidal ideation along with frequent mood swings and a history of traumatic brain injury. Patient continues struggle with completion of activities of daily living. He had reported that he had been feeling less angry. He had continued to perseverate about his sister and reported that being under her household had led to increased agitation but states that he understood that a choice between being homeless and leaving his sister were difficult for him. He reported improving sleep. He had continued to struggle with completion of activities of daily living here without some prompting. Mental Status Exam 2 MSE Comments: This is an underweight versus cachectic white male in hospital scrubs with limited grooming, poor dentition, and poor eye contact seen in his bedroom. No abnormal movements except for psychomotor slowing. He was cooperative with exam in mild distress. Speech was normal in rate and volume. Mood described as okay. Affect remained irritable. Thought process appeared linear. Thought content: Patient continued to endorse angry thoughts with less perseveration regarding his sister. He did not report delusions and none were noted, he did not report auditory or visual hallucinations. He also denied experiencing any auditory hallucinations or feelings of paranoia. His attention and concentration were intact and memory was reliable but none were formally tested. He is alert and oriented x 3. Insight is impaired. His judgment is limited and impulse control is impaired. Vitals/I&O/Wt Last Vital Signs Temp 98.4 F 09/11/24 14:00 Pulse 98 09/11/24 14:00 Resp 17 09/11/24 14:00 BP 139/96 09/11/24 14:00 Pulse Ox 100 09/11/24 14:00 O2 Del Method Room Air 09/10/24 14:00 Weight last 48 hrs Weight 59.693 kg Data NPU 09/06/24 19:23 09/06/24 19:23 A&P Assessment and plan (1) Unspecified mood [affective] disorder: (2) Suicidal ideation: (3) PTSD (post-traumatic stress disorder): (4) Suicidal ideation: (5) Homicidal ideation: Plan This is a 49-year-old white male with a long history of mental health issues recently discharged last week from [facility] with hx of trauma, seizures, traumatic brain injury, with homicidal and suicidal ideation. His current stressors continue to be family issues, lack of support, limited finances and health concerns. He has a history of unstable relationships and has been in and out of the criminal justice system. Family conflict with his sister with whom he lives continues to create challenges and he is open to alternative living situations but reports she is his most stable option. 1. Continue Dilantin 100 mg p.o. twice daily and Keppra as prescribed at 1000mg bid. Continue risperidone .5mg in am, 1mg at night. 2. Continue every 15 minute checks for safety. 3. Encourage individual, group and milieu therapies. 4. Obtain collateral information. 5.? Encourage sober living treatment, after discharge, at the highest level of care, to which he is willing to commit. Police spoke to patient's sister regarding patient's threats toward her and patient's sister expressed feeling safe in her environment and that patient was able to return home. Involuntary Hold Information 2 96 Hour Hold: 96 Hour Involuntary Admission: Yes 96 Hour Hold Ending Date: 09/13/24 96 Hour Hold Ending Time: 00:01 Other Hold: Hold End Date: 09/12/24 Attestations NPU 2 Medical Necessity Statement*: Inpatient hospitalization is medically necessary and the clinically appropriate intervention at this time. We will monitor medication to make changes as indicated. His likely length of stay 2-3 days. Coding Level of Care Code Acute Code for Chg Fwd Diagnoses Unspecified mood [affective] disorder F39 Suicidal ideation R45.851 PTSD (post-traumatic stress disorder) F43.10 Homicidal ideation R45.850
[2024-09-11] MEDS: levETIRAcetam 500 mg Tablet 1000 MG PO (17:26)
[2024-09-11] MEDS: risperiDONE 1 mg Tablet PO (20:18)
[2024-09-11] MEDS: trazodone 50 mg Tablet PO (20:19)
[2024-09-11 20:39] VITALS: BP 111/80; PULSE 96; RESP 16; TEMP 36.7; O2SAT 98
[2024-09-12 06:00] VITALS: BP 101/65; PULSE 113; RESP 16; TEMP 37; O2SAT 96
[2024-09-12] MEDS: levETIRAcetam 500 mg Tablet 1000 MG PO ×2 (07:59→17:38)
[2024-09-12] MEDS: phenytoin ER 100 mg Capsule PO ×2 (07:59→17:38)
[2024-09-12] MEDS: risperiDONE 0.25 mg Tablet 0.5 MG PO (07:59)
--- NOTE | 2024-09-12 08:13 | PC.NURSE ---
pt up near nurses station. Pt denies hi/avh but endorses si/anxiety/depression and stated I wish I could sit in front of my meth head sister and put a nine mm in my mouth and tell her its her fault and then pull the trigger, I could also use heavyweight rope because Im only 130 pounds and its not nothing for me to walk into traffic . Pt also stated Yuliana been asking for help and Yuliana got no where, I even went out of state to [place] and nothing was done . Pt was educated that we are here for him and that the doctor and employment evaluator/case manager are working on a plan for him. RR even and unlabored. [ End ]
--- NOTE | 2024-09-12 13:06 | P.NPUPN_ITS ---
Subjective NPU 2 Subjective: Patient is a 49-year-old male admitted with homicidal ideation and suicidal ideation along with frequent mood swings and a history of traumatic brain injury. Patient has a significant history of significant legal problems for being a sexual offender. He had continued to have problems with placement in a senior living due to his legal issues. He had reported that he would go home. He had stated that he had wanted his sister to see him hanging himself and continued to perseverate about not wanting to be there. Despite this, the patient had continued to struggle with motivation as he had not been able to call the [facility] that the [facility] had been at in order to get a record stating that he had been there that would facilitate potential restarting of his disability. He had continued to show poor evidence of self-care often refusing to engage in basic hygiene. He had continued to appear provocative at times threatening both to harm himself and his sister but at the same time reporting that he would go there despite her verbal abuse towards him. Mental Status Exam 2 MSE Comments: This is an underweight versus cachectic white male in hospital scrubs with limited grooming, poor dentition, and poor eye contact seen in his bedroom. No abnormal movements except for psychomotor slowing. He was cooperative with exam in mild distress. Speech was normal in rate and volume. Mood described as okay. Affect remained subdued. Thought process appeared linear. Thought content: Patient continued to endorse angry thoughts with less perseveration regarding his sister. He did not report delusions and none were noted, he did not report auditory or visual hallucinations. He also denied experiencing any auditory hallucinations or feelings of paranoia. His attention and concentration were intact and memory was reliable but none were formally tested. He is alert and oriented x 3. Insight is impaired. His judgment is limited and impulse control is impaired. Vitals/I&O/Wt Last Vital Signs Temp 98.6 F 09/12/24 06:00 Pulse 113 H 09/12/24 06:00 Resp 16 09/12/24 06:00 BP 101/65 09/12/24 06:00 Pulse Ox 96 09/12/24 06:00 O2 Del Method Room Air 09/12/24 06:00 Data NPU 09/06/24 19:23 09/06/24 19:23 A&P Assessment and plan (1) Unspecified mood [affective] disorder: (2) Suicidal ideation: (3) PTSD (post-traumatic stress disorder): (4) Suicidal ideation: (5) Homicidal ideation: Plan This is a 49-year-old white male with a long history of mental health issues recently discharged last week from [facility] with hx of trauma, seizures, traumatic brain injury, with homicidal and suicidal ideation. His current stressors continue to be family issues, lack of support, limited finances and health concerns. He has a history of unstable relationships and has been in and out of the criminal justice system. Family conflict with his sister with whom he lives continues to create challenges and he is open to alternative living situations but reports she is his most stable option. 1. Continue Dilantin 100 mg p.o. twice daily and Keppra as prescribed at 1000mg bid. Increase risperidone 1mg bid. 2. Continue every 15 minute checks for safety. 3. Encourage individual, group and milieu therapies. 4. Obtain collateral information. 5.? Encourage sober living treatment, after discharge, at the highest level of care, to which he is willing to commit. Police spoke to patient's sister regarding patient's threats toward her and patient's sister expressed feeling safe in her environment and that patient was able to return home. Involuntary Hold Information 2 96 Hour Hold: 96 Hour Involuntary Admission: Yes 96 Hour Hold Ending Date: 09/13/24 96 Hour Hold Ending Time: 00:01 Other Hold: Hold End Date: 09/12/24 Attestations [facility] 2 Medical Necessity Statement*: Inpatient hospitalization is medically necessary and the clinically appropriate intervention at this time. We will monitor medication to make changes as indicated. His likely length of stay 2-3 days. Coding Level of Care Code Acute Code for Chg Fwd Diagnoses Unspecified mood [affective] disorder F39 Suicidal ideation R45.851 PTSD (post-traumatic stress disorder) F43.10 Homicidal ideation R45.850
[2024-09-12 14:00] VITALS: BP 125/80; PULSE 98; RESP 16; TEMP 36.6; O2SAT 98
[2024-09-12] MEDS: risperiDONE 1 mg Tablet PO (17:38)
[2024-09-12 19:19] VITALS: BP 125/81; PULSE 116; RESP 16; TEMP 36.7; O2SAT 94
[2024-09-12] MEDS: trazodone 50 mg Tablet PO (19:42)
[2024-09-13 06:00] VITALS: BP 129/82; PULSE 108; RESP 14; TEMP 37; O2SAT 97
--- NOTE | 2024-09-13 09:07 | PC.NURSE ---
Signed in Patient signed in yesterday, agreeing to hospital consent form. This nurse served as witness. All questions answered.
[2024-09-13] MEDS: phenytoin ER 100 mg Capsule PO ×2 (09:17→17:26)
[2024-09-13] MEDS: risperiDONE 1 mg Tablet PO ×2 (09:18→17:26)
[2024-09-13] MEDS: levETIRAcetam 500 mg Tablet 1000 MG PO ×2 (09:18→17:25)
--- NOTE | 2024-09-13 12:21 | P.NPUPN_ITS ---
Subjective NPU 2 Subjective: Patient is a 49-year-old male admitted with homicidal ideation and suicidal ideation along with frequent mood swings and a history of traumatic brain injury. He reported no side effects from the medication. He had continued to struggle with completion of basic tasks. He had reported continued threats to kill himself if he were to return to live with his sister in fact admitting that he would try to kill himself in front of her. He had continued to perseverate about wanting his sister to suffer. He had continued to minimize his current legal problems. He had shown some improved motivation to complete activities of daily living having taken a shower for the first time in several days. Mental Status Exam 2 MSE Comments: This is an underweight versus cachectic white male in hospital scrubs with limited grooming, poor dentition, and poor eye contact seen in his bedroom. No abnormal movements except for psychomotor slowing. He was cooperative with exam in mild distress. Speech was normal in rate and volume. Mood described as allright. Affect remained subdued. Thought process appeared linear. Thought content: Patient continued to endorse angry thoughts with less perseveration regarding his sister. He did not report delusions and none were noted, he did not report auditory or visual hallucinations. He also denied experiencing any auditory hallucinations or feelings of paranoia. His attention and concentration were intact and memory was reliable but none were formally tested. He is alert and oriented x 3. Insight is impaired. His judgment is limited and impulse control is impaired. Vitals/I&O/Wt Last Vital Signs Temp 98.6 F 09/13/24 06:00 Pulse 108 H 09/13/24 06:00 Resp 14 09/13/24 06:00 BP 129/82 09/13/24 06:00 Pulse Ox 97 09/13/24 06:00 O2 Del Method Room Air 09/13/24 06:00 Data NPU 09/06/24 19:23 09/06/24 19:23 A&P Assessment and plan (1) Unspecified mood [affective] disorder: (2) Suicidal ideation: (3) PTSD (post-traumatic stress disorder): (4) Suicidal ideation: (5) Homicidal ideation: Plan This is a 49-year-old white male with a long history of mental health issues recently discharged last week from [facility] with hx of trauma, seizures, traumatic brain injury, with homicidal and suicidal ideation. His current stressors continue to be family issues, lack of support, limited finances and health concerns. He has a history of unstable relationships and has been in and out of the criminal justice system. Family conflict with his sister with whom he lives continues to create challenges and he is open to alternative living situations but reports she is his most stable option. 1. Continue Dilantin 100 mg p.o. twice daily and Keppra as prescribed at 1000mg bid. Continue risperidone at 1mg bid. 2. Continue every 15 minute checks for safety. 3. Encourage individual, group and milieu therapies. 4. Obtain collateral information. 5.? Encourage sober living treatment, after discharge, at the highest level of care, to which he is willing to commit. Police spoke to patient's sister regarding patient's threats toward her and patient's sister expressed feeling safe in her environment and that patient was able to return home. Involuntary Hold Information 2 96 Hour Hold: 96 Hour Involuntary Admission: Yes 96 Hour Hold Ending Date: 09/13/24 96 Hour Hold Ending Time: 00:01 Attestations NPU 2 Medical Necessity Statement*: Inpatient hospitalization is medically necessary and the clinically appropriate intervention at this time. We will monitor medication to make changes as indicated. His likely length of stay 2-3 days. Coding Level of Care Code Acute Code for Chg Fwd Diagnoses Unspecified mood [affective] disorder F39 Suicidal ideation R45.851 PTSD (post-traumatic stress disorder) F43.10 Homicidal ideation R45.850
[2024-09-13] MEDS: acetaminophen 325 mg Tablet 650 MG PO (13:09)
[2024-09-13] MEDS: OLANZapine 5 mg ODT PO (13:09)
[2024-09-13 13:12] VITALS: BP 119/75; PULSE 105; RESP 16; TEMP 37; O2SAT 97
[2024-09-13 19:27] VITALS: BP 125/83; PULSE 89; RESP 16; TEMP 36.5; O2SAT 100
[2024-09-14 06:00] VITALS: BP 129/82; PULSE 106; RESP 16; TEMP 36.7; O2SAT 97
[2024-09-14] MEDS: phenytoin ER 100 mg Capsule PO (08:09)
[2024-09-14] MEDS: risperiDONE 1 mg Tablet PO (08:09)
[2024-09-14] MEDS: levETIRAcetam 500 mg Tablet 1000 MG PO (08:09)
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
[2024-09-14] MEDS: hyDROXYzine 25 mg Capsule 50 MG PO (12:03)
[2024-09-14 12:09] VITALS: BP 129/82; PULSE 106; RESP 16; TEMP 36.7; O2SAT 97
== END 2024-09-14 14:37 | disposition home or self-care (01) | DRG 885 ==
LOC: ER 20:14 → NP 21:41
PROVIDERS: Emergency Medicine; Admitting Provider Psychiatry & Neurology Psychiatry; Emergency Provider Physician Assistant; Visit Provider Psychiatry & Neurology Psychiatry
DX: F39 Unspecified mood [affective] disorder (principal); R45.851 Suicidal ideations; Z68.1 Body mass index [BMI] 19.9 or less, adult; F32.A Depression, unspecified; R45.850 Homicidal ideations; Z91.128 Patient's intentional underdosing of medication regimen for other reason; Z79.891 Long term (current) use of opiate analgesic; F43.10 Post-traumatic stress disorder, unspecified; R63.6 Underweight; Z87.820 Personal history of traumatic brain injury; R45.1 Restlessness and agitation
CPT/HCPCS: 36415; 80053; 80306; 80307; 85025; 97150; 97165; 99285

== ENCOUNTER 2024-10-02 03:21 | Emergency (ER) | payer BC, MEDICAID, SELFPAY ==
[2024-10-02 03:29] VITALS: BP 126/79; PULSE 95; RESP 16; TEMP 36.5; O2SAT 96; BMI 17.9
[2024-10-02 03:39] VITALS: BP 126/79; PULSE 95; RESP 16; O2SAT 96
--- NOTE | 2024-10-02 03:40 | XRR_ITS ---
PROCEDURE INFORMATION: Exam: XR Chest Exam date and time: 10/02/2024 3:55 AM Age: 49 years old Clinical indication: Chest pressure; Prior surgery; Surgery date: 6+ months; Surgery type: Tinsmith Helper shunt; C/O chest pain TECHNIQUE: Imaging protocol: Radiologic exam of the chest. Views: 1 view. COMPARISON: CR (CHEST, ) 06/18/2024 11:50 AM FINDINGS: Tubes, catheters and devices: Partially included ventriculoatrial shunt in stable position. Lungs: Unremarkable. No consolidation. Pleural spaces: Unremarkable. No pleural effusion. No pneumothorax. Heart/Mediastinum: Unremarkable. No cardiomegaly. Bones/joints: Unremarkable. XR/XR chest 1V portable [id number] IMPRESSION: 1. Ventriculoatrial shunt in stable position. 2. No acute findings.
--- NOTE | 2024-10-02 03:51 | ECG_ITS ---
[facility] Date: 2024-10-02 Pat Name: Lambert Nunez Department: Room: Gender: Male Requirements Analyst: : 1975 Requested By: Ethan Buchanan Order Number: [id number] Dubois MD: Heather Verdin M.D. Measurements Intervals [place] Rate: 69 P: 79 WV: 148 QRS: 85 QRSD: 74 T: 77 QT: 374 QTc: 401 Interpretive Statements SINUS RHYTHM Compared to ECG 08/25/2024 17:50:45 Sinus arrhythmia no longer present Electronically Signed On 10-04-2024 17:53:40 PATIENT INSURANCE CLERK by Heather Verdin M.D. [email or web address]
[2024-10-02 04:02] LABS: Basophils # 0.1 10^3/uL (0.0-0.1); Basophils % 1.3 %; Eosinophils # 0.2 10^3/uL (0.0-0.8); Eosinophils % 2.6 %; Hematocrit 41.7 % (37-53); Lymphocytes # 2.1 10^3/uL (0.8-4.8); Lymphocytes % 29.9 %; Mean Corpuscular HGB Conc 32.9 g/dL (30-55); Mean Corpuscular Hemoglobin 32.3 pg (27-33); Mean Corpuscular Volume 98.3 fl (82-101); Mean Platelet Volume 9.5 fL (7.4-10.4); Monocytes # 0.6 10^3/uL (0.2-0.9); Monocytes % 7.9 %; Neutrophils # 4.02 10^3/uL (1.8-7.7); Neutrophils % 58.2 %; Nucleated Red Blood Cells % 0 %; Platelet Count 196 10^3/cmm (157-399); Red Blood Count 4.24 10^6/uL (3.85-5.65); Red Cell Distribution Width 11.8 % (12.1-15.1); White Blood Count 6.92 10^3/uL (3.29-11.43)
[2024-10-02 04:05] LABS: Bilirubin Urine Negative (Negative); Blood Urine Negative (Negative); Glucose Urine UA Negative (Normal); Ketones Urine Negative (Negative); Leukocyte Esterase Urine Negative (Negative); Nitrate Urine Negative (Negative); Protein Urine Negative (Negative); Specific Gravity, Urine 1.007 (1.005-1.030); Urine Appearance Clear (CLEAR); Urine Color Yellow (Yellow); Urobilinogen Urine 0.2 mg/dL (Negative); pH Urine 6.5 (5-7)
[2024-10-02 04:10] LABS: Add Urine Microscopic? YES; Bacteria Urine None Seen /hpf; Hyaline Casts Urine 0-4 /lpf; RBC Urine 0-2 /hpf (0-2); Squamous Epithelial Cell Urine 0-5 /hpf (0-5); WBC Urine 0-5 /hpf (0-5)
[2024-10-02 04:12] LABS: Amphetamines Screen Urine Negative (Negative); Barbiturates Screen Urine Positive (Negative); Benzodiazepines Screen Urine Negative (Negative); Cocaine Screen Urine Negative (Negative); Opiate Screen Urine Negative (Negative); PCP Screen Urine Negative (Negative); THC Screen Urine Positive (Negative)
[2024-10-02 04:22] LABS: Troponin(5th) Baseline < 6 ng/L (0-15)
[2024-10-02 04:27] LABS: Blood Urea Nitrogen 13 mg/dL (6-20); Carbon Dioxide 21 mmol/L (22-29); Chloride 98 mmol/L (98-107); Creatinine Clr Calc Pharmacy 72.4487; Glomerular Filtration Rate 79.8 mL/min (90-130); Sodium 135 mmol/L (136-145)
[2024-10-02 04:28] LABS: Acetaminophen < 5.0 ug/mL (10-30); Alanine Aminotransferase 15 U/L (0-41); Albumin Level 4.4 g/dL (3.5-5.2); Alcohol Level < 10 mg/dL (0-10); Alkaline Phosphatase 114 U/L (40-130); Anion Gap 20.1 (5-19); Aspartate Amino Transferase 20 U/L (0-40); Calcium 9.2 mg/dL (8.5-10.5); Globulin 2.9 g/dL (1.3-4.6); Glucose 113 mg/dL (65-115); Osmolality Calculated 281 mOsm/kg (285-295); Potassium 4.1 mmol/L (3.5-5.1); Salicylate < 0.3 mg/dL (3-10); Thyroid Stimulating Hormone 1.82 uIU/mL (0.27-4.20); Total Bilirubin 0.3 mg/dL (0.15-1.2); Total Protein 7.3 g/dL (6.6-8.7)
--- NOTE | 2024-10-02 04:41 | W.ED.PSYCHS ---
HPI - Psych General: Chief Complaint: Psychiatric Symptoms Stated Complaint: MHE Time Seen by Provider: 10/02/24 04:32 History of Present Illness: 49-year-old male patient presenting with suicidal ideation and depression. He states his plan was to hang himself. He brought a rope with him to the emergency room. This seems to have been brought on by an argument with his sister. He was last admitted to our neuropsychiatric facility around a week and 1/2 to 2 weeks ago. He states that he has valvular heart problems, like mitral valve prolapse and tricuspid disease as well as SVT. He has not been ill otherwise recently medically. He is afebrile. No cough respiratory symptoms or vomiting. He does complain of chest discomfort this morning. Related Data Home Medications ?Medication ?Instructions ?Recorded ?Confirmed citalopram 40 mg tablet 40 mg PO DAILY 10/02/24 10/02/24 levetiracetam 1,000 mg tablet 1,000 mg PO BID 10/02/24 10/02/24 phenytoin sodium extended 100 mg 100 mg PO BID 10/02/24 10/02/24 capsule Previous Rx's ?Medication ?Instructions ?Recorded hydroxyzine pamoate 25 mg capsule 50 mg (2 x 25 mg) PO Q6H PRN 09/01/24 Anxiety 30 days #120 caps trazodone 50 mg tablet 50 mg PO BEDTIME PRN Sleep 30 days 09/01/24 #30 tabs risperidone 1 mg tablet 1 mg PO BID 30 days #60 tabs 09/14/24 Allergies Allergy/AdvReac Type Severity Reaction Status Date / Time No Known Allergies Allergy Verified 10/02/24 03:39 [facility] ED PFSH: Medical History History of seizures History of pneumothorax History of bacterial meningitis Surgical History History of appendectomy History of cholecystectomy H/O brain surgery H/O foot surgery Status post ventriculoatrial shunt placement HEATER FURNACE (ventriculoperitoneal) shunt status H/O chest tube placement Family History Mother CAD (coronary artery disease) Cancer Psychiatric illness Sister Cancer Psychiatric illness Denies family history of Diabetes Suicide Lung disease Hypertension Stroke Social History Smoking and tobacco/nicotine status: never used tobacco/nicotine Alcohol intake: never Substance/Drug Use: never Physical Exam Const: COMMON NORMALS: no acute distress GENERAL APPEARANCE: cooperative; not ill appearing and not frail appearing HENMT: COMMON NORMALS: normocephalic, atraumatic and Normal external nose present HEAD & SCALP: normocephalic and atraumatic FACE & SINUS: normal facial exam and face symmetric NOSE: Normal external nose present Eye: COMMON NORMALS: Equal, round and reactive pupils present and EOMs intact bilaterally PUPIL: Yes Equal, round and reactive pupils present Neck/C-Spine: GENERAL: Yes trachea midline Chest: CHEST: Yes Symmetrical chest wall rise Resp: COMMON NORMALS: normal respiratory effort, No retractions, No use of accessory muscles and clear to auscultation bilaterally AUSCULTATION: clear to auscultation bilaterally Cardio: COMMON NORMALS: regular rate and regular rhythm RATE: regular rate RHYTHM: regular rhythm GI: COMMON NORMALS: Normal to inspection, nondistended, normoactive bowel sounds present Extremity: COMMON NORMALS: no pedal edema Neuro: LARS COMA SCALE: document GCS findings Perry coma scale eye opening: Spontaneous Perry coma scale verbal response: Orientated Lars coma scale motor response: Obey commands Perry coma scale total score: 15 SENSORY EXAM: Yes extremities (intact) Psych: COMMON NORMALS: speech normal SPEECH: Yes normal speech Skin: COMMON NORMALS: no rashes or lesions noted GENERAL SKIN EXAM: no rashes or lesions noted Course Vital Signs: Vital signs: Vital Signs Temperature 97.7 F 10/02/24 03:29 Pulse Rate 101 H 10/02/24 12:27 Respiratory Rate 18 10/02/24 12:27 Blood Pressure 99/62 10/02/24 12:27 Pulse Oximetry 97 10/02/24 12:27 Oxygen Delivery Me thod Room Air 10/02/24 09:20 MDM - Psych Medical Decision Making This patient is medically stable. His laboratory is not remarkable. His EKG shows no acute ST wave changes. His TSH is 1.8. His troponin is nondetectable. His chest x-ray is normal. We have no beds currently at our facility. This patient is suicidal. Will have to be transferred to an appropriate facility with a bed. Medically, he is stable. Currently, he is willing to be admitted. Lab Data 10/02/24 03:56 10/02/24 03:56 Radiology Impressions Chest X-Ray 10/02/24 03:40 IMPRESSION: 1. Ventriculoatrial shunt in stable position. 2. No acute findings. Laboratory Results WBC 6.92 10^3/uL (3.29-11.43) 10/02/24 03:56 RBC 4.24 10^6/uL (3.85-5.65) 10/02/24 03:56 Hgb 13.70 g/dL (11.27-16.99) 10/02/24 03:56 Hct 41.7 % (37-53) 10/02/24 03:56 MCV 98.3 fl (82-101) 10/02/24 03:56 MCH 32.3 pg (27-33) 10/02/24 03:56 MCHC 32.9 g/dL (30-55) 10/02/24 03:56 RDW 11.8 % (12.1-15.1) L 10/02/24 03:56 Plt Count 196 10^3/cmm (157-399) 10/02/24 03:56 MPV 9.5 fL (7.4-10.4) 10/02/24 03:56 Neut % (Auto) 58.2 % 10/02/24 03:56 Lymph % (Auto) 29.9 % 10/02/24 03:56 Weld % (Auto) 7.9 % 10/02/24 03:56 Eos % (Auto) 2.6 % 10/02/24 03:56 Baso % (Auto) 1.3 % 10/02/24 03:56 Neut # (Auto) 4.02 10^3/uL (1.8-7.7) 10/02/24 03:56 Lymph # (Auto) 2.1 10^3/uL (0.8-4.8) 10/02/24 03:56 Weld # (Auto) 0.6 10^3/uL (0.2-0.9) 10/02/24 03:56 Eos # (Auto) 0.2 10^3/uL (0.0-0.8) 10/02/24 03:56 Baso # (Auto) 0.1 10^3/uL (0.0-0.1) 10/02/24 03:56 Nucleated RBC % (auto) 0 % 10/02/24 03:56 Nucleated RBCs # 0.0 /100WBC 10/02/24 03:56 Sodium 135 mmol/L (136-145) L 10/02/24 03:56 Potassium 4.1 mmol/L (3.5-5.1) 10/02/24 03:56 Chloride 98 mmol/L (98-107) 10/02/24 03:56 Carbon Dioxide 21 mmol/L (22-29) L 10/02/24 03:56 Anion Gap 20.1 (5-19) H 10/02/24 03:56 BUN 13 mg/dL (6-20) 10/02/24 03:56 Creatinine 1.0 mg/dL (0.7-1.2) 10/02/24 03:56 GFR Calculation 79.8 mL/min (90-130) L 10/02/24 03:56 Glucose 113 mg/dL (65-115) 10/02/24 03:56 Calculated Osmolality 281 mOsm/kg (285-295) L 10/02/24 03:56 Calcium 9.2 mg/dL (8.5-10.5) 10/02/24 03:56 Total Bilirubin 0.3 mg/dL (0.15-1.2) 10/02/24 03:56 AST 20 U/L (0-40) 10/02/24 03:56 ALT 15 U/L (0-41) 10/02/24 03:56 Alkaline Phosphatase 114 U/L (40-130) 10/02/24 03:56 Troponin T Baseline < 6 ng/L (0-15) 10/02/24 03:56 Troponin T 120 Minute 7.11 ng/L (0-15) 10/02/24 06:41 Delta Troponin T 1.11978 ABS# (0-10) 10/02/24 06:41 Troponin T Hi Sens 6Hr 6.78 ng/L (0-15) 10/02/24 10:05 Troponin T Hi Sens 6Hr Delta 0.16130 ng/L (0-12) 10/02/24 10:05 Total Protein 7.3 g/dL (6.6-8.7) 10/02/24 03:56 Albumin 4.4 g/dL (3.5-5.2) 10/02/24 03:56 Globulin 2.9 g/dL (1.3-4.6) 10/02/24 03:56 TSH 1.82 uIU/mL (0.27-4.20) 10/02/24 03:56 Urine Color Yellow (Yellow) 10/02/24 03:56 Urine Appearance Clear (CLEAR) 10/02/24 03:56 Urine pH 6.5 (5-7) 10/02/24 03:56 Ur Specific Polo 1.007 (1.005-1.030) 10/02/24 03:56 Urine Protein Negative (Negative) 10/02/24 03:56 Urine Glucose (UA) Negative (Normal) 10/02/24 03:56 Urine Ketones Negative (Negative) 10/02/24 03:56 Urine Blood Negative (Negative) 10/02/24 03:56 Urine Nitrate Negative (Negative) 10/02/24 03:56 Urine Bilirubin Negative (Negative) 10/02/24 03:56 Urine Urobilinogen 0.2 mg/dL (Negative) 10/02/24 03:56 Ur Leukocyte Esterase Negative (Negative) 10/02/24 03:56 Urine RBC 0-2 /hpf (0-2) 10/02/24 03:56 Urine WBC 0-5 /hpf (0-5) 10/02/24 03:56 Ur Squamous Epith Cells 0-5 /hpf (0-5) 10/02/24 03:56 Amorphous Sediment Not Reportable 10/02/24 03:56 Urine Bacteria None seen /hpf (NONE) 10/02/24 03:56 Hyaline Casts 0-4 /lpf H 10/02/24 03:56 Salicylates < 0.3 mg/dL (3-10) L 10/02/24 03:56 Urine Opiates Screen Negative ng/mL (Negative) 10/02/24 03:56 Acetaminophen < 5.0 ug/mL (10-30) L 10/02/24 03:56 Ur Barbiturates Screen Positive ng/mL (Negative) H 10/02/24 03:56 Ur Phencyclidine Scrn Negative ng/mL (Negative) 10/02/24 03:56 Ur Amphetamines Screen Negative ng/mL (Negative) 10/02/24 03:56 U Benzodiazepines Scrn Negative ng/mL (Negative) 10/02/24 03:56 Urine Cocaine Screen Negative ng/mL (Negative) 10/02/24 03:56 U Marijuana (THC) Screen Positive ng/mL (Negative) H 10/02/24 03:56 Ethyl Alcohol < 10 mg/dL (0-10) 10/02/24 03:56 No radiology studies performed this visit Discharge Plan Discharge Patient Disposition: Xfer Psychiatric Hosp Clinical Impression: Suicidal ideation Condition: Stable Print Language: Andorran Coding Level of Care Code ED Passport Support Associate for Fei Ku
[2024-10-02 07:02] LABS: Troponin 5 2HR 7.11 ng/L (0-15); Troponin 5 2HR Delta 1.11001 ABS# (0-10)
--- NOTE | 2024-10-02 07:05 | ECG_ITS ---
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 Measurements Intervals [place] Rate: 69 P: 75 [place]: 146 QRS: 81 QRSD: 76 T: 72 QT: 379 QTc: 407 Interpretive Statements SINUS RHYTHM Compared to ECG 10/02/2024 03:51:07 No significant changes Electronically Signed On 10-04-2024 18:25:11 PHARMACY INTAKE TECHNICIAN by Heather Verdin M.D. [email or web address]
[2024-10-02 09:20] VITALS: PULSE 89; O2SAT 94
--- NOTE | 2024-10-02 09:27 | PC.NURSE ---
96 hr rights reviewed with patient @[id number] with assistance of BETINA Toth. All education reviewed. Patient verbalized understanding of hold details and no concerns were mentioned to this HS at this time. Patient copy was provided to patient. No needs at this time, and patient declined a snack or drink.
--- NOTE | 2024-10-02 09:44 | DCPLANNER ---
Addendum entered by uTyet Valdez 10/02/24 14:30: accepted [facility] 10:09. Called [facility] to arrange transport Trip#[phone] @11. Original Note: faxed packet to [facility]. [facility] called for info from nurse - spoke to anne
[2024-10-02 10:29] LABS: Troponin 5 6HR 6.78 ng/L (0-15); Troponin 5 6HR Delta 0.78001 ng/L (0-12)
--- NOTE | 2024-10-02 11:08 | ECG_ITS ---
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 Measurements Intervals [place] Rate: 85 P: 77 [place]: 137 QRS: 85 QRSD: 76 T: 79 QT: 350 QTc: 417 Interpretive Statements SINUS RHYTHM Compared to ECG 10/02/2024 07:05:39 No significant changes Electronically Signed On 10-04-2024 18:25:19 APPLICATION INTEGRATOR by Heather Verdin M.D. [email or web address]
[2024-10-02 12:27] VITALS: BP 99/62; PULSE 101; RESP 18; O2SAT 97
== END 2024-10-02 16:20 ==
PROVIDERS: Emergency Provider Emergency Medicine
DX: R45.851 Suicidal ideations (principal)
CPT/HCPCS: 36415; 71045; 80053; 80306; 80307; 81001; 84443; 84484; 85025; 93005; 99285

== ENCOUNTER 2024-11-02 04:56 | Inpatient (IN) | payer BC, SELFPAY ==
[2024-11-02 05:01] VITALS: BP 120/79; PULSE 95; RESP 18; TEMP 37.1; O2SAT 98; BMI 17.9
--- NOTE | 2024-11-02 05:20 | PC.NURSE ---
Belongings including clothing, paperwork, and cell phone accounted for and placed in bags.
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
[2024-11-02 05:49] LABS: Basophils # 0.1 10^3/uL (0.0-0.1); Basophils % 1.1 %; Eosinophils # 0.2 10^3/uL (0.0-0.8); Eosinophils % 2.9 %; Hematocrit 37.6 % (37-53); Lymphocytes # 1.6 10^3/uL (0.8-4.8); Lymphocytes % 25.5 %; Mean Corpuscular Hemoglobin 32.5 pg (27-33); Mean Corpuscular Volume 98.4 fl (82-101); Mean Platelet Volume 9.5 fL (7.4-10.4); Monocytes # 0.6 10^3/uL (0.2-0.9); Monocytes % 10.2 %; Neutrophils # 3.73 10^3/uL (1.8-7.7); Neutrophils % 60.1 %; Nucleated Red Blood Cells % 0 %; Platelet Count 198 10^3/cmm (157-399); Red Blood Count 3.82 10^6/uL (3.85-5.65); Red Cell Distribution Width 12.1 % (12.1-15.1)
--- NOTE | 2024-11-02 06:02 | PC.NURSE ---
96 Hour Hold: Paperwork presented to patient and read by magnetic tape typewriter operator with security present. Patient voiced understanding, offered opportunity for him to ask questions and stated that he had no questions at this time. Copy of his paperwork was placed with his belongings.
[2024-11-02 06:06] LABS: Acetaminophen < 5.0 ug/mL (10-30); Alanine Aminotransferase 13 U/L (0-41); Albumin Level 4.3 g/dL (3.5-5.2); Alkaline Phosphatase 89 U/L (40-130); Aspartate Amino Transferase 17 U/L (0-40); Blood Urea Nitrogen 14 mg/dL (6-20); Carbon Dioxide 23 mmol/L (22-29); Chloride 103 mmol/L (98-107); Creatinine Clr Calc Pharmacy 80.4986; Glomerular Filtration Rate 90.1 mL/min (90-130); Glucose 117 mg/dL (65-115); Osmolality Calculated 288 mOsm/kg (285-295); Salicylate < 0.3 mg/dL (3-10); Sodium 138 mmol/L (136-145); Thyroid Stimulating Hormone 1.62 uIU/mL (0.27-4.20); Total Bilirubin 0.3 mg/dL (0.15-1.2); Total Protein 7.3 g/dL (6.6-8.7)
[2024-11-02 06:09] LABS: Phenytoin Dilantin 0.8 ug/mL (10-20); Valproic Acid Level 2.8 ug/mL (50-100)
[2024-11-02 06:45] LABS: Amphetamines Screen Urine Negative (Negative); Barbiturates Screen Urine Negative (Negative); Benzodiazepines Screen Urine Negative (Negative); Cocaine Screen Urine Negative (Negative); Opiate Screen Urine Negative (Negative); PCP Screen Urine Negative (Negative); THC Screen Urine Positive (Negative)
--- NOTE | 2024-11-02 06:52 | ECG_ITS ---
[employer] Test Date: 2024-11-02 Pat Name: Lambert Nunez Department: Room: Gender: Male Team Primary Care Physician: : [id number] Requested By: Armand Hearn Order Number: [id number] Dubois MD: Theo Clark M.D. Measurements Intervals [place] Rate: 68 P: -17 VA: 147 QRS: -24 QRSD: 78 T: -21 QT: 369 QTc: 395 Interpretive Statements SINUS RHYTHM BORDERLINE LEFT AXIS DEVIATION [QRS AXIS < -20] VOLTAGE CRITERIA FOR LVH [MEETS CRITERIA IN ONE OF: R(aVL), S(V1), R(V5), R(V5/V6)+S(V1)] Compared to ECG 10/02/2024 11:08:39 Left ventricular hypertrophy now present Electronically Signed On 11-03-2024 19:07:43 CDT by Theo Clark M.D. [email or web address]
--- NOTE | 2024-11-02 07:35 | PC.PHAR ---
Pt states he discharged from [facility] with medications but has not had any of the current meds on his list in 1.5 weeks. He has asked his sister to get them picked up and still doesn't have them since he can't drive.
--- NOTE | 2024-11-02 10:13 | PC.NURSE ---
attempted report @1010; FILLING TECHNICIAN states RN is in group meeting with MD and unable to take report at this time.
--- NOTE | 2024-11-02 11:33 | PC.NURSE ---
attempted to call report again; nurse unable to take report at this time.
--- NOTE | 2024-11-02 11:39 | PC.NURSE ---
pt report called to NPU RN @[id number]; security notified of need for transport assistance d/t 96 hour hold
[2024-11-02 11:47] VITALS: BP 116/68; PULSE 81; RESP 16; TEMP 36.7; O2SAT 97
[2024-11-02 14:00] VITALS: BP 118/60; PULSE 81; RESP 20; TEMP 36.6; O2SAT 98
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
[2024-11-02 20:12] VITALS: BP 110/80; PULSE 79; RESP 18; TEMP 37.1; O2SAT 97
--- NOTE | 2024-11-02 20:21 | PC.NURSE ---
Signee informed pt. is his thought of SI became worse to inform staff. Pt. does not have access to a way to harm self while on the unit. Pt. has since calmed down and is now at the nurses station requesting juice.
[2024-11-02] MEDS: risperiDONE 1 mg Tablet PO (21:44)
[2024-11-03 06:00] VITALS: BP 94/68; PULSE 78; RESP 16; TEMP 36.6; O2SAT 95
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
[2024-11-03] MEDS: risperiDONE 1 mg Tablet PO ×2 (08:49→21:29)
[2024-11-03] MEDS: levETIRAcetam 500 mg Tablet 1000 MG PO ×2 (08:49→17:21)
[2024-11-03] MEDS: phenytoin ER 100 mg Capsule PO ×2 (08:49→17:21)
[2024-11-03] MEDS: citalopram 20 mg Tablet 40 MG PO (08:49)
[2024-11-03 13:57] VITALS: BP 100/65; PULSE 93; RESP 16; TEMP 36.7; O2SAT 96
[2024-11-03 19:50] VITALS: BP 101/62; PULSE 107; RESP 16; TEMP 36.8; O2SAT 97
[2024-11-03] MEDS: trazodone 50 mg Tablet PO (21:29)
[2024-11-03] MEDS: hyDROXYzine 25 mg Capsule 50 MG PO (21:29)
[2024-11-04 06:00] VITALS: BP 99/62; PULSE 74; RESP 16; TEMP 36.6; O2SAT 94
[2024-11-04] MEDS: levETIRAcetam 500 mg Tablet 1000 MG PO ×2 (08:33→17:26)
[2024-11-04] MEDS: citalopram 20 mg Tablet 40 MG PO (08:33)
[2024-11-04] MEDS: phenytoin ER 100 mg Capsule PO ×2 (08:33→17:26)
[2024-11-04] MEDS: risperiDONE 1 mg Tablet PO ×2 (08:33→20:17)
[2024-11-04 14:00] VITALS: BP 90/62; PULSE 87; RESP 16; TEMP 37; O2SAT 96
--- NOTE | 2024-11-04 16:30 | P.NPUPN_ITS ---
Subjective NPU 2 Subjective: Patient is a 49-year-old male admitted with homicidal ideation and suicidal ideation along with frequent mood swings and a history of traumatic brain injury. He reported no side effects from his medication regimen. He continued to isolate himself in bed all day. He continued to report having some homicidal thoughts towards his sister. He had reported that he would kill himself if he were discharged from this hospital. He had continued to minimize any current legal charges at this time. He had continued to struggle with completion of activities of daily living as he struggled with showering and engaging in brushing his teeth. Mental Status Exam 2 MSE Comments: This is an underweight versus cachectic white male in hospital scrubs with poor grooming and poor dentition with adequate eye contact. No abnormal involuntary motor movements except for psychomotor agitation. He was cooperative with exam and appeared in no acute distress. Speech was mostly normal in rate and volume. Mood described as okay. Affect was restricted in range and mood congruent. Thought process appeared linear. Thought content: Patient endorsed suicidal ideation contingent upon leaving here. Patient denied homicidal ideation. He did not report delusions and none were noted, he did not report auditory or visual hallucinations. The patient denied having any current thoughts of self-harm or harm to others. He also denied experiencing any auditory hallucinations or feelings of paranoia. His attention and concentration were intact and memory was reliable but none were formally tested. He is alert and oriented x 3. Insight and judgment are limited and impulse control impaired. Vitals/I&O/Wt Last Vital Signs Temp 98.6 F 11/04/24 14:00 Pulse 87 11/04/24 14:00 Resp 16 11/04/24 14:00 BP 90/62 11/04/24 14:00 Pulse Ox 96 11/04/24 14:00 O2 Del Method Room Air 11/04/24 14:00 Data NPU 11/02/24 05:45 11/02/24 05:17 A&P Assessment and plan (1) Unspecified mood [affective] disorder: (2) Suicidal ideation: (3) PTSD (post-traumatic stress disorder): (4) Suicidal ideation: (5) Homicidal ideation: (6) Malingering: (7) Antisocial personality disorder: Plan This is a 49-year-old white male with a long history of mental health issues recently discharged last week from [facility] with hx of trauma, seizures, traumatic brain injury, with homicidal and suicidal ideation. His current stressors continue to be family issues, legal issues, lack of support, limited finances and health concerns. He has a history of unstable relationships and has been in and out of the criminal justice system. 1. Restart outpatient medications. 2. Continue every 15 minute checks for safety. 3. Encourage individual, group and milieu therapies. 4. Obtain collateral information. 5.? Encourage sober living treatment, after discharge, at the highest level of care, to which he is willing to commit. Police spoke to patient's sister regarding patient's threats toward her and patient's sister expressed feeling safe in her environment and that patient was able to return home. PDMP PDMP Reviewed: Not Reviewed Involuntary Hold Information 2 Hold Status: Legal Status: 96 Hour Hold Date/Time Hold Expires: 11/08/2024 @ 0515 96 Hour Hold: 96 Hour Involuntary Admission: Yes Attestations NPU 2 Medical Necessity Statement*: Inpatient hospitalization is medically necessary and the clinically appropriate intervention at this time. We will monitor medication to make changes as indicated. Patient will be in the hospital for over two midnights. His likely length of stay is 2-3 days. Coding Level of Care Code Acute Code for Chg Fwd Diagnoses Unspecified mood [affective] disorder F39 Suicidal ideation R45.851 PTSD (post-traumatic stress disorder) F43.10 Homicidal ideation R45.850 Malingering Z76.5 Antisocial personality disorder F60.2
[2024-11-04] MEDS: acetaminophen 325 mg Tablet 650 MG PO (17:29)
[2024-11-04 19:49] VITALS: BP 92/59; PULSE 81; RESP 16; TEMP 36.9; O2SAT 95
[2024-11-04] MEDS: hyDROXYzine 25 mg Capsule 50 MG PO (20:17)
[2024-11-04] MEDS: trazodone 50 mg Tablet PO (20:17)
[2024-11-05 06:00] VITALS: BP 109/65; PULSE 85; RESP 16; TEMP 36.7; O2SAT 95
[2024-11-05] MEDS: levETIRAcetam 500 mg Tablet 1000 MG PO ×2 (08:14→17:11)
[2024-11-05] MEDS: risperiDONE 1 mg Tablet PO ×2 (08:14→19:59)
[2024-11-05] MEDS: phenytoin ER 100 mg Capsule PO ×2 (08:14→17:11)
[2024-11-05] MEDS: citalopram 20 mg Tablet 40 MG PO (08:15)
[2024-11-05] MEDS: ibuprofen 600 mg Tablet PO (08:15)
--- NOTE | 2024-11-05 13:01 | P.NPUPN_ITS ---
Subjective NPU 2 Subjective: Patient is a 49-year-old male admitted with homicidal ideation and suicidal ideation along with frequent mood swings and a history of traumatic brain injury. The patient had reported headaches. He had no seizures noted. He continued to endorse depression but reported otherwise feeling okay. Patient had isolated himself on the milieu. He had limited interaction with his peers. He had continued to express anger towards his sister. Despite this, the patient had stated that he planned on returning to live with his sister despite all of his allegations of threats that she made to him as well. Mental Status Exam 2 MSE Comments: This is an underweight versus cachectic white male in hospital scrubs with poor grooming and poor dentition with adequate eye contact. No abnormal involuntary motor movements except for psychomotor agitation. He was cooperative with exam and appeared in no acute distress. Speech was normal in rate and volume. Mood described as allright. Affect was restricted in range and mood congruent. Thought process appeared linear. Thought content: Patient endorsed suicidal ideation contingent upon leaving here. Patient denied homicidal ideation. He did not report delusions and none were noted, he did not report auditory or visual hallucinations. The patient denied having any current thoughts of self-harm or harm to others. He also denied experiencing any auditory hallucinations or feelings of paranoia. His attention and concentration were intact and memory was reliable but none were formally tested. He is alert and oriented x 3. Insight and judgment are limited and impulse control impaired. Vitals/I&O/Wt Last Vital Signs Temp 98.0 F 11/05/24 06:00 Pulse 85 11/05/24 06:00 Resp 16 11/05/24 06:00 BP 109/65 11/05/24 06:00 Pulse Ox 95 11/05/24 06:00 O2 Del Method Room Air 11/04/24 14:00 Weight last 48 hrs Weight 59.33 kg Data NPU 11/02/24 05:45 11/02/24 05:17 A&P Assessment and plan (1) Unspecified mood [affective] disorder: (2) Suicidal ideation: (3) PTSD (post-traumatic stress disorder): (4) Suicidal ideation: (5) Homicidal ideation: (6) Malingering: (7) Antisocial personality disorder: Plan This is a 49-year-old white male with a long history of mental health issues recently discharged last week from [facility] with hx of trauma, seizures, traumatic brain injury, with homicidal and suicidal ideation. His current stressors continue to be family issues, legal issues, lack of support, limited finances and health concerns. He has a history of unstable relationships and has been in and out of the criminal justice system. 1. Restart outpatient medications. 2. Continue every 15 minute checks for safety. 3. Encourage individual, group and milieu therapies. 4. Obtain collateral information. Duty to warn in play as team attempting to contact patient's sister as he has made threats to her. 5.? Encourage sober living treatment, after discharge, at the highest level of care, to which he is willing to commit. 6. Continue Risperidone 1mg bid and Celexa 40mg daily. PDMP PDMP Reviewed: Not Reviewed Involuntary Hold Information 2 Hold Status: Legal Status: 96 Hour Hold Date/Time Hold Expires: 11/08/2024 @ 0515 96 Hour Hold: 96 Hour Involuntary Admission: Yes Attestations NPU 2 Medical Necessity Statement*: Inpatient hospitalization is medically necessary and the clinically appropriate intervention at this time. We will monitor medication to make changes as indicated. His likely length of stay is 2-3 days. Coding Level of Care Code Acute Code for Chg Fwd Diagnoses Unspecified mood [affective] disorder F39 Suicidal ideation R45.851 PTSD (post-traumatic stress disorder) F43.10 Homicidal ideation R45.850 Malingering Z76.5 Antisocial personality disorder F60.2
[2024-11-05 14:00] VITALS: BP 102/59; PULSE 81; RESP 16; TEMP 36.9; O2SAT 96
[2024-11-05 19:37] VITALS: BP 97/59; PULSE 97; RESP 18; TEMP 37.3; O2SAT 97
[2024-11-06 06:00] VITALS: BP 92/60; PULSE 78; RESP 16; TEMP 36.6; O2SAT 96
[2024-11-06] MEDS: risperiDONE 1 mg Tablet PO (08:30)
[2024-11-06] MEDS: levETIRAcetam 500 mg Tablet 1000 MG PO ×2 (08:30→17:32)
[2024-11-06] MEDS: phenytoin ER 100 mg Capsule PO ×2 (08:30→17:32)
[2024-11-06] MEDS: citalopram 20 mg Tablet 40 MG PO (08:30)
[2024-11-06 14:00] VITALS: BP 97/64; PULSE 89; RESP 18; TEMP 36.6; O2SAT 95
--- NOTE | 2024-11-06 15:03 | P.NPUPN_ITS ---
Subjective NPU 2 Subjective: Patient is a 49-year-old male admitted with homicidal ideation and suicidal ideation along with frequent mood swings and a history of traumatic brain injury. The patient continued to isolate himself on the milieu. He reported no side effects from his medications. He continues to struggle with completion of activities of daily living. He had continued to report having some mood swings. He had not endorsed having any thoughts of hurting himself or others at this time. Mental Status Exam 2 MSE Comments: This is an underweight versus cachectic white male in hospital scrubs with poor grooming and poor dentition with adequate eye contact. No abnormal involuntary motor movements except for psychomotor agitation. He was cooperative with exam and appeared in no acute distress. Speech was normal in rate and volume. Mood described as fine. Affect was restricted in range and mood congruent. Thought process appeared linear. Thought content: Patient denied suicidal ideation or homicidal ideation. He did not report delusions and none were noted, he did not report auditory or visual hallucinations. The patient denied having any current thoughts of self-harm or harm to others. He also denied experiencing any auditory hallucinations or feelings of paranoia. His attention and concentration were intact and memory was reliable but none were formally tested. He is alert and oriented x 3. Insight and judgment are limited and impulse control impaired. Vitals/I&O/Wt Last Vital Signs Temp 97.8 F 11/06/24 06:00 Pulse 78 11/06/24 06:00 Resp 16 11/06/24 06:00 BP 92/60 11/06/24 06:00 Pulse Ox 96 11/06/24 06:00 O2 Del Method Room Air 11/05/24 14:00 Weight last 48 hrs Weight 59.33 kg Data NPU 11/02/24 05:45 11/02/24 05:17 A&P Assessment and plan (1) Unspecified mood [affective] disorder: (2) Suicidal ideation: (3) PTSD (post-traumatic stress disorder): (4) Suicidal ideation: (5) Homicidal ideation: (6) Malingering: (7) Antisocial personality disorder: Plan This is a 49-year-old white male with a long history of mental health issues recently discharged last week from [facility] with hx of trauma, seizures, traumatic brain injury, with homicidal and suicidal ideation. His current stressors continue to be family issues, legal issues, lack of support, limited finances and health concerns. He has a history of unstable relationships and has been in and out of the criminal justice system. 1. Restart outpatient medications. 2. Continue every 15 minute checks for safety. 3. Encourage individual, group and milieu therapies. 4. Obtain collateral information. Duty to warn in play as team attempting to contact patient's sister as he has made threats to her. 5.? Encourage sober living treatment, after discharge, at the highest level of care, to which he is willing to commit. 6. Increase Risperidone 1.5 mg bid and Celexa 40mg daily. PDMP PDMP Reviewed: Not Reviewed Involuntary Hold Information 2 Hold Status: Legal Status: 96 Hour Hold Date/Time Hold Expires: 11/08/2024 @ 0515 96 Hour Hold: 96 Hour Involuntary Admission: Yes Attestations NPU 2 Medical Necessity Statement*: Inpatient hospitalization is medically necessary and the clinically appropriate intervention at this time. We will monitor medication to make changes as indicated. His likely length of stay is 1-2 days. Coding Level of Care Code Acute Code for Chg Fwd Diagnoses Unspecified mood [affective] disorder F39 Suicidal ideation R45.851 PTSD (post-traumatic stress disorder) F43.10 Homicidal ideation R45.850 Malingering Z76.5 Antisocial personality disorder F60.2
[2024-11-06 19:32] VITALS: BP 103/66; PULSE 73; RESP 18; TEMP 37.1; O2SAT 95
[2024-11-06] MEDS: risperiDONE 1 mg Tablet 1.5 MG PO (20:45)
[2024-11-07] MEDS: hyDROXYzine 25 mg Capsule 50 MG PO (03:03)
--- NOTE | 2024-11-07 03:04 | PC.NURSE ---
PATIENT CAME TO DESK REQUESTING SOMETHING FOR SLEEP . PATIENT ADVISED THAT NO SLEEP MEDS CAN BE GIVEN AFTER 2AM, BUT HE WOULD BE ABLE TO HAVE SOME VISTARIL FOR ANXIETY IF HE WOULD LIKE. PATIENT AGREED, VISTARIL 50MG PO GIVEN FOR ANXIETY.
[2024-11-07 06:00] VITALS: BP 100/65; PULSE 82; RESP 17; TEMP 36.6; O2SAT 95
[2024-11-07] MEDS: risperiDONE 1 mg Tablet 1.5 MG PO ×2 (08:38→21:09)
[2024-11-07] MEDS: levETIRAcetam 500 mg Tablet 1000 MG PO ×2 (08:38→17:06)
[2024-11-07] MEDS: citalopram 20 mg Tablet 40 MG PO (08:38)
[2024-11-07] MEDS: phenytoin ER 100 mg Capsule PO ×2 (08:39→17:06)
--- NOTE | 2024-11-07 12:57 | P.NPUPN_ITS ---
Subjective NPU 2 Subjective: Patient is a 49-year-old male admitted with homicidal ideation and suicidal ideation along with frequent mood swings and a history of traumatic brain injury. Patient had reported feeling better. He continued to isolate himself on the milieu and struggle with completion of activities of daily living. There was no evidence of any inappropriate behavior or aggression noted on the unit. He had not been making any overt threats to his sister this time and stated that he would likely return back to his sister's home to live when discharged. He had not mentioned having thoughts of suicide today. The patient had reported some difficulties with falling asleep with frequent awakenings at night. He had otherwise reported no side effects from his medication regimen. Mental Status Exam 2 MSE Comments: This is an underweight versus cachectic white male in hospital scrubs with poor grooming and poor dentition with adequate eye contact. No abnormal involuntary motor movements except for psychomotor retardation. He was cooperative with exam and appeared in no acute distress. Speech was normal in rate and volume. Mood described as allright. Affect was restricted in range and mood incongruent. Thought process appeared linear. Thought content: Patient denied suicidal ideation or homicidal ideation. He did not report delusions and none were noted, he did not report auditory or visual hallucinations. The patient denied having any current thoughts of self-harm or harm to others. He also denied experiencing any auditory hallucinations or feelings of paranoia. His attention and concentration were intact and memory was reliable but none were formally tested. He is alert and oriented x 3. Insight and judgment are limited and impulse control impaired. Vitals/I&O/Wt Last Vital Signs Temp 97.9 F 11/07/24 06:00 Pulse 82 11/07/24 06:00 Resp 17 11/07/24 06:00 BP 100/65 11/07/24 06:00 Pulse Ox 95 11/07/24 06:00 O2 Del Method Room Air 11/05/24 14:00 Data NPU 11/02/24 05:45 11/02/24 05:17 A&P Assessment and plan (1) Unspecified mood [affective] disorder: (2) Suicidal ideation: (3) PTSD (post-traumatic stress disorder): (4) Suicidal ideation: (5) Homicidal ideation: (6) Malingering: (7) Antisocial personality disorder: Plan This is a 49-year-old white male with a long history of mental health issues recently discharged last week from [facility] with hx of trauma, seizures, traumatic brain injury, with homicidal and suicidal ideation. His current stressors continue to be family issues, legal issues, lack of support, limited finances and health concerns. He has a history of unstable relationships and has been in and out of the criminal justice system. 1. Increase trazodone to 75mg at night routinely. 2. Continue every 15 minute checks for safety. 3. Encourage individual, group and milieu therapies. 4. Obtain collateral information. Duty to warn in play as team attempting to contact patient's sister as he has made threats to her. If cleared will discharge to home. 5.? Encourage sober living treatment, after discharge, at the highest level of care, to which he is willing to commit. 6. Continue Risperidone 1.5 mg bid and Celexa 40mg daily. PDMP PDMP Reviewed: Not Reviewed Involuntary Hold Information 2 Hold Status: Legal Status: 96 Hour Hold Date/Time Hold Expires: 11/08/2024 @ 0515 96 Hour Hold: 96 Hour Involuntary Admission: Yes Attestations NPU 2 Medical Necessity Statement*: Inpatient hospitalization is medically necessary and the clinically appropriate intervention at this time. We will monitor medication to make changes as indicated. His likely length of stay is 1-2 days. Coding Level of Care Code Acute Code for Chg Fwd Diagnoses Unspecified mood [affective] disorder F39 Suicidal ideation R45.851 PTSD (post-traumatic stress disorder) F43.10 Homicidal ideation R45.850 Malingering Z76.5 Antisocial personality disorder F60.2
[2024-11-07 14:00] VITALS: BP 109/70; PULSE 105; RESP 18; TEMP 36.6; O2SAT 97
[2024-11-07 19:56] VITALS: BP 103/57; PULSE 95; RESP 16; TEMP 36.7; O2SAT 93
[2024-11-07] MEDS: trazodone 50 mg Tablet 75 MG PO (21:09)
[2024-11-08 06:00] VITALS: BP 96/61; PULSE 93; RESP 16; O2SAT 95
[2024-11-08] MEDS: citalopram 20 mg Tablet 40 MG PO (08:30)
[2024-11-08] MEDS: risperiDONE 1 mg Tablet 1.5 MG PO (08:31)
[2024-11-08] MEDS: phenytoin ER 100 mg Capsule PO (08:33)
[2024-11-08] MEDS: levETIRAcetam 500 mg Tablet 1000 MG PO (08:33)
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
[2024-11-08 12:10] VITALS: BP 96/61; PULSE 93; RESP 16; TEMP 36.7; O2SAT 95
== END 2024-11-08 12:30 | disposition home or self-care (01) | DRG 881 ==
LOC: ER 07:43 → NP 09:59
PROVIDERS: Emergency Medicine; Admitting Provider Psychiatry & Neurology Psychiatry; Emergency Provider Family Medicine; PCP Family Medicine; Visit Provider Psychiatry & Neurology Psychiatry
DX: F32.A Depression, unspecified (principal); R45.851 Suicidal ideations; Z68.1 Body mass index [BMI] 19.9 or less, adult; F39 Unspecified mood [affective] disorder; F43.10 Post-traumatic stress disorder, unspecified; R45.850 Homicidal ideations; Z76.5 Malingerer [conscious simulation]; Z72.811 Adult antisocial behavior; R63.6 Underweight; Z79.891 Long term (current) use of opiate analgesic; Z91.199 Patient's noncompliance with other medical treatment and regimen due to unspecified reason
CPT/HCPCS: 36415; 80053; 80164; 80185; 80306; 80307; 84443; 85025; 93005; 97150; 97165; 99285; J9999

== ENCOUNTER 2024-11-21 23:43 | Emergency (ER) | payer BC, MEDICAID, SELFPAY ==
[2024-11-21 23:45] VITALS: BP 144/87; PULSE 108; RESP 18; TEMP 36.5; O2SAT 97; BMI 18.2
[2024-11-21 23:49] LABS: Glucose Point of Care 291 mg/dL (70-110)
--- NOTE | 2024-11-21 23:52 | XRR_ITS ---
PROCEDURE INFORMATION: Exam: XR Chest Exam date and time: 11/21/2024 11:11 PM Age: 49 years old Clinical indication: Shortness of breath; Additional info: SOB, dizzy TECHNIQUE: Imaging protocol: Radiologic exam of the chest. Views: 1 view. COMPARISON: CR XR chest 1V portable [id number] 10/02/2024 3:55 AM FINDINGS: Tubes, catheters and devices: Left IJ approach central venous catheter positioned with its tip near the upper cavoatrial junction. Lungs: No focal consolidation. Pleural spaces: Unremarkable. No pleural effusion. No pneumothorax. Heart/Mediastinum: Unremarkable. No cardiomegaly. Bones/joints: Unremarkable. XR/XR chest 1V portable [id number] IMPRESSION: No focal consolidation.
--- NOTE | 2024-11-21 23:53 | ECG_ITS ---
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
[2024-11-22] MEDS: sodium chloride 0.9% 1,000 ML 999 ML IV (00:29)
[2024-11-22 01:07] LABS: Basophils # 0.1 10^3/uL (0.0-0.1); Basophils % 0.9 %; Eosinophils # 0.1 10^3/uL (0.0-0.8); Eosinophils % 2.1 %; Hematocrit 45.8 % (37-53); Lymphocytes # 1.3 10^3/uL (0.8-4.8); Lymphocytes % 23.7 %; Mean Corpuscular Hemoglobin 32.3 pg (27-33); Mean Corpuscular Volume 98.1 fl (82-101); Mean Platelet Volume 9.4 fL (7.4-10.4); Monocytes # 0.7 10^3/uL (0.2-0.9); Monocytes % 13.4 %; Neutrophils # 3.16 10^3/uL (1.8-7.7); Neutrophils % 59.5 %; Nucleated Red Blood Cells % 0 %; Platelet Count 182 10^3/cmm (157-399); Red Blood Count 4.67 10^6/uL (3.85-5.65); Red Cell Distribution Width 11.9 % (12.1-15.1); White Blood Count 5.31 10^3/uL (3.29-11.43)
[2024-11-22 01:22] LABS: Influenza A NEGATIVE (Negative); Influenza B NEGATIVE (Negative); Respiratory Syncytial Virus Ce NEGATIVE (Negative); SARS-CoV-2 PCR NEGATIVE (Negative)
[2024-11-22 01:24] LABS: Troponin(5th) Baseline < 6 ng/L (0-15)
[2024-11-22 01:25] LABS: Alanine Aminotransferase 18 U/L (0-41); Albumin Level 4.4 g/dL (3.5-5.2); Alkaline Phosphatase 116 U/L (40-130); Anion Gap 15.4 (5-19); Aspartate Amino Transferase 19 U/L (0-40); Blood Urea Nitrogen 15 mg/dL (6-20); C Reactive Protein 5.3 mg/L (0.0-4.9); Calcium 8.9 mg/dL (8.5-10.5); Carbon Dioxide 26 mmol/L (22-29); Chloride 103 mmol/L (98-107); Creatinine Clr Calc Pharmacy 81.7863; Glomerular Filtration Rate 90.1 mL/min (90-130); Glucose 108 mg/dL (65-115); Osmolality Calculated 291 mOsm/kg (285-295); Potassium 4.4 mmol/L (3.5-5.1); Sodium 140 mmol/L (136-145); Total Bilirubin 0.2 mg/dL (0.15-1.2); Total Protein 7.4 g/dL (6.6-8.7)
[2024-11-22 01:34] LABS: ABG PCO2 44.3 mmHg (35-45); ABG PH Result 7.38 (7.35-7.45); Alveolar-Arterial Oxygen Gradi 0.5 mmHg (5-10); Arterial Blood Gas Hematocrit 41.8 % (42-52); Base Excess ABG 0.6 mmol/L (-2.0-2.0); Blood Gas Operator Identificat SAM; Blood Gas Sample Site Brachial, left; Blood Gas Sample Type Arterial; Carboxyhemoglobin 0.8 %THgb (0.4-20.1); HCO3 ABG 26.1 mmol/L (22-26); HGB O2 Sat 96.4 % (95-100); Ionized Calcium Level - ABG 1.1 mmol/L (1.1-1.4); Methemoglobin 0.4 % (0.4-1.5); Oxygen Saturation ABG 97.5; PO2 ABG 88.6 mmHg (80.0-100.0); PO2 FiO2 Ratio Arterial Blood 421; Potassium Level - ABG 4.3 mmol/L (3.5-5.0); Total Hemoglobin 13.6 g/dL (14-18)
[2024-11-22 01:36] VITALS: BP 180/84; PULSE 73; O2SAT 99
[2024-11-22 01:37] LABS: Add Urine Microscopic? NO
[2024-11-22 01:42] LABS: Lactic Sepsis W/Reflex 3.6 mmol/L (0.5-2.2)
[2024-11-22 01:43] LABS: Bilirubin Urine Neg (Negative); Blood Urine Neg (Negative); Glucose Urine UA Norm (Normal); Ketones Urine Negative (Negative); Leukocyte Esterase Urine Negative (Negative); Nitrate Urine Negative (Negative); Protein Urine Neg (Negative); Urine Appearance Clear (CLEAR); Urine Color Yellow (Yellow); Urobilinogen Urine Neg (Negative); pH Urine 7 (5-7)
[2024-11-22 01:44] LABS: Charge for UA Resulting for Rev
[2024-11-22 01:53] LABS: Ketone (Acetest) Serum Negative (Negative)
--- NOTE | 2024-11-22 01:53 | ECG_ITS ---
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
[2024-11-22 02:00] VITALS: BP 122/88; PULSE 84; O2SAT 98
[2024-11-22 02:53] LABS: Reflex Lactate Order REFLEX LACTIC ORDERD
[2024-11-22 02:58] LABS: Glucose Point of Care 92 mg/dL (70-110)
[2024-11-22 03:00] VITALS: BP 120/86; PULSE 83; O2SAT 98
[2024-11-22 03:17] LABS: Estmated Average Glucose 105; Hemoglobin A1C 5.3 % (4.0-6.0)
[2024-11-22 03:17] LABS: Troponin 5 2HR Delta 0.00001 ABS# (0-10)
[2024-11-22 04:18] VITALS: BP 120/89; PULSE 88; O2SAT 95
== END 2024-11-22 04:15 | disposition home or self-care (01) ==
PROVIDERS: Physician Assistant; Emergency Provider Emergency Medicine; PCP Family Medicine
DX: R42 Dizziness and giddiness (principal); Z11.52 Encounter for screening for COVID-19
CPT/HCPCS: 36415; 36416; 36600; 71045; 80051; 80053; 81003; 82009; 82330; 82805; 82962; 83036; 83605; 84484; 85025; 86140; 87637; 93005; 99285; J7030

== ENCOUNTER 2024-11-24 01:57 | Emergency (ER) | payer BC, MEDICAID, SELFPAY ==
[2024-11-24 02:11] VITALS: BP 124/84; PULSE 95; RESP 20; TEMP 36.6; O2SAT 96; BMI 24.3
[2024-11-24] MEDS: levETIRAcetam 1,000 MG/100 ML PREMIX 400 MG IV (02:15)
[2024-11-24 02:16] VITALS: BP 124/89; PULSE 93; RESP 20; O2SAT 92
[2024-11-24 02:28] LABS: Basophils # 0.1 10^3/uL (0.0-0.1); Eosinophils # 0.2 10^3/uL (0.0-0.8); Eosinophils % 3.4 %; Hematocrit 43.1 % (37-53); Lymphocytes # 1.4 10^3/uL (0.8-4.8); Lymphocytes % 28.5 %; Mean Corpuscular HGB Conc 32.9 g/dL (30-55); Mean Corpuscular Hemoglobin 32.2 pg (27-33); Mean Corpuscular Volume 97.7 fl (82-101); Mean Platelet Volume 9.3 fL (7.4-10.4); Monocytes # 0.4 10^3/uL (0.2-0.9); Monocytes % 8.4 %; Neutrophils # 2.94 10^3/uL (1.8-7.7); Neutrophils % 58.5 %; Nucleated Red Blood Cells % 0 %; Platelet Count 191 10^3/cmm (157-399); Red Blood Count 4.41 10^6/uL (3.85-5.65); Red Cell Distribution Width 11.9 % (12.1-15.1); White Blood Count 5.02 10^3/uL (3.29-11.43)
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
[2024-11-24 02:49] LABS: Alanine Aminotransferase 15 U/L (0-41); Albumin Level 4.3 g/dL (3.5-5.2); Alkaline Phosphatase 120 U/L (40-130); Anion Gap 12.8 (5-19); Aspartate Amino Transferase 17 U/L (0-40); Blood Urea Nitrogen 16 mg/dL (6-20); Carbon Dioxide 29 mmol/L (22-29); Chloride 105 mmol/L (98-107); Creatinine Clr Calc Pharmacy 105.9766; Globulin 3.5 g/dL (1.3-4.6); Glomerular Filtration Rate 90.1 mL/min (90-130); Glucose 103 mg/dL (65-115); Lactic Sepsis W/Reflex 1.5 mmol/L (0.5-2.2); Osmolality Calculated 295 mOsm/kg (285-295); Potassium 4.8 mmol/L (3.5-5.1); Sodium 142 mmol/L (136-145); Total Bilirubin 0.2 mg/dL (0.15-1.2); Total Protein 7.8 g/dL (6.6-8.7)
[2024-11-24 03:02] VITALS: BP 121/82; PULSE 88; O2SAT 95
== END 2024-11-24 03:11 | disposition home or self-care (01) ==
PROVIDERS: Emergency Provider Emergency Medicine; PCP Family Medicine
DX: G40.89 Other seizures (principal)
CPT/HCPCS: 36415; 80053; 83605; 85025; 96365; 99284; J1953

== ENCOUNTER 2024-11-24 22:46 | Emergency (ER) | payer BC, MEDICAID, SELFPAY ==
[2024-11-24 22:51] VITALS: BP 126/82; PULSE 93; RESP 20; TEMP 36.9; O2SAT 95; BMI 22.9
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
[2024-11-24] MEDS: lactated ringers 1,000 ML 999 ML IV (23:30)
[2024-11-24 23:42] LABS: Basophils # 0.1 10^3/uL (0.0-0.1); Basophils % 0.9 %; Eosinophils # 0.2 10^3/uL (0.0-0.8); Eosinophils % 2.7 %; Lymphocytes % 18.8 %; Mean Corpuscular HGB Conc 32.9 g/dL (30-55); Mean Corpuscular Hemoglobin 32.5 pg (27-33); Mean Corpuscular Volume 99.1 fl (82-101); Mean Platelet Volume 9.3 fL (7.4-10.4); Monocytes # 0.4 10^3/uL (0.2-0.9); Monocytes % 7.5 %; Neutrophils # 3.84 10^3/uL (1.8-7.7); Neutrophils % 69.9 %; Nucleated Red Blood Cells % 0 %; Platelet Count 201 10^3/cmm (157-399); Red Blood Count 4.24 10^6/uL (3.85-5.65); White Blood Count 5.49 10^3/uL (3.29-11.43)
[2024-11-24 23:44] VITALS: BP 119/89; PULSE 83; O2SAT 96
[2024-11-24 23:59] LABS: Lactic Sepsis W/Reflex 1.4 mmol/L (0.5-2.2)
[2024-11-25] LABS: Alanine Aminotransferase 18 U/L (0-41); Albumin Level 4.3 g/dL (3.5-5.2); Alkaline Phosphatase 113 U/L (40-130); Anion Gap 13.1 (5-19); Aspartate Amino Transferase 19 U/L (0-40); Blood Urea Nitrogen 12 mg/dL (6-20); Carbon Dioxide 30 mmol/L (22-29); Chloride 102 mmol/L (98-107); Creatinine Clr Calc Pharmacy 116.3257; Globulin 3.1 g/dL (1.3-4.6); Glomerular Filtration Rate 103.2 mL/min (90-130); Glucose 116 mg/dL (65-115); Lipase 32 U/L (13-60); Osmolality Calculated 291 mOsm/kg (285-295); Potassium 5.1 mmol/L (3.5-5.1); Sodium 140 mmol/L (136-145); Total Bilirubin 0.2 mg/dL (0.15-1.2); Total Protein 7.4 g/dL (6.6-8.7)
[2024-11-25 00:39] VITALS: BP 122/84; PULSE 90; O2SAT 99
[2024-11-25 00:40] VITALS: BP 122/84; PULSE 90; O2SAT 99
== END 2024-11-25 00:41 | disposition home or self-care (01) ==
PROVIDERS: Emergency Provider Nurse Practitioner; PCP Family Medicine
DX: G40.909 Epilepsy, unspecified, not intractable, without status epilepticus (principal)
CPT/HCPCS: 36415; 80053; 83605; 83690; 85025; 99283; J7120

== ENCOUNTER → 2024-12-08 15:25 | Outpatient (BNVA) | payer BC, MEDICAID, SELFPAY | PROVIDERS: PCP Family Medicine; Visit Provider Family Medicine | DX: G40.909 Epilepsy, unspecified, not intractable, without status epilepticus (principal); I77.4 Celiac artery compression syndrome | CPT/HCPCS: 80177; 80185 ==

== ENCOUNTER 2025-01-21 23:42 | Emergency (ER) | payer BC, MEDICAID, SELFPAY ==
[2025-01-21 23:47] VITALS: BP 120/78; PULSE 88; RESP 16; TEMP 36.8; O2SAT 93; BMI 17.9
--- NOTE | 2025-01-22 00:03 | ECG_ITS ---
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 Measurements Intervals [place] Rate: 67 P: 55 TX: 160 QRS: 76 QRSD: 62 T: 69 QT: 376 QTc: 397 Interpretive Statements SINUS RHYTHM SEPTAL MYOCARDIAL INFARCTION , OF INDETERMINATE AGE [40+ ms Q WAVE IN V1/V2] Compared to ECG 11/22/2024 03:03:40 Myocardial infarct finding now present Electronically Signed On 01-23-2025 11:38:22 CDT by Theo Clark M.D. [email or web address]
[2025-01-22] MEDS: levETIRAcetam 500 MG/100 ML PREMIX 400 MG IV (00:23)
[2025-01-22 00:30] VITALS: BP 120/82; PULSE 69; RESP 16; O2SAT 95
[2025-01-22 01:00] VITALS: BP 113/79; PULSE 79; RESP 16; O2SAT 94
[2025-01-22 01:05] LABS: Basophils # 0.1 10^3/uL (0.0-0.1); Basophils % 0.9 %; Eosinophils # 0.2 10^3/uL (0.0-0.8); Eosinophils % 3.8 %; Lymphocytes # 1.4 10^3/uL (0.8-4.8); Mean Corpuscular HGB Conc 34.3 g/dL (30-55); Mean Corpuscular Volume 96.4 fl (82-101); Mean Platelet Volume 9.9 fL (7.4-10.4); Monocytes # 0.5 10^3/uL (0.2-0.9); Monocytes % 10.2 %; Neutrophils # 3.12 10^3/uL (1.8-7.7); Neutrophils % 58.9 %; Nucleated Red Blood Cells % 0 %; Platelet Count 196 10^3/cmm (157-399); Red Blood Count 4.15 10^6/uL (3.85-5.65); Red Cell Distribution Width 11.7 % (12.1-15.1)
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
[2025-01-22 01:12] LABS: Lactic Sepsis W/Reflex 1.6 mmol/L (0.5-2.2)
[2025-01-22 01:15] LABS: Alanine Aminotransferase 19 U/L (0-41); Alkaline Phosphatase 141 U/L (40-130); Anion Gap 13.3 (5-19); Aspartate Amino Transferase 20 U/L (0-40); Blood Urea Nitrogen 14 mg/dL (6-20); Calcium 8.8 mg/dL (8.5-10.5); Carbon Dioxide 28 mmol/L (22-29); Chloride 104 mmol/L (98-107); Creatine Phosphokinase 53 U/L (39-308); Creatinine Clr Calc Pharmacy 90.5609; Globulin 3.3 g/dL (1.3-4.6); Glomerular Filtration Rate 103.2 mL/min (90-130); Glucose 113 mg/dL (65-115); Osmolality Calculated 293 mOsm/kg (285-295); Phosphorus 2.4 mg/dL (2.5-4.5); Potassium 4.3 mmol/L (3.5-5.1); Sodium 141 mmol/L (136-145); Total Bilirubin 0.2 mg/dL (0.15-1.2); Total Protein 7.3 g/dL (6.6-8.7)
[2025-01-22 01:27] VITALS: BP 116/79; PULSE 64; RESP 16; O2SAT 95
== END 2025-01-22 01:49 | disposition home or self-care (01) ==
PROVIDERS: Emergency Provider Emergency Medicine; PCP Family Medicine
DX: G40.909 Epilepsy, unspecified, not intractable, without status epilepticus (principal)
CPT/HCPCS: 36415; 80053; 82550; 83605; 83735; 84100; 85025; 93005; 96365; 99284; J1953